=== PATIENT | male | born 1980 | race Caucasian/White ===

== ENCOUNTER → 2021-04-11 08:18 | Outpatient (CLI) | payer MEDICARE, SELFPAY ==
[2021-04-11 19:04] LABS: SARS-CoV-2 RNA PCR Negative
== END ==
PROVIDERS: PCP Internal Medicine; Visit Provider Nurse Practitioner
DX: R68.89 Other general symptoms and signs (principal); Z20.822 Contact with and (suspected) exposure to COVID-19
CPT/HCPCS: C9803; U0003; U0005

== ENCOUNTER 2021-10-03 17:20 | Outpatient (CLI) | payer MEDICARE, SELFPAY ==
--- NOTE | ~2021-10-03 | XR_ITS ---
EXAM: XR foot RT 2V DATE: 10/03/2021 17:38 HISTORY: M79.671 - Pain in right foot . COMPARISON: 01/15/2015. FINDINGS: Forefoot soft tissue swelling. Nondisplaced comminuted fracture is suspected at the proxim al right third metatarsal, with likely intra-articular extension. Degenerative changes at the first M TP and multiple midfoot joints. Plantar enthesopathy. IMPRESSION: Nondisplaced comminuted fracture of the right proximal third metatarsal, with likely intr a-articular extension. Reviewed, dictated and finalized at location K. IMPRESSION: Nondisplaced comminuted fracture of the right proximal third metata rsal, with likely intra-articular extension.
== END 2021-10-03 17:21 ==
LOC: MICIMG 17:22
PROVIDERS: PCP Internal Medicine; Visit Provider Nurse Practitioner
DX: S92.334D Nondisplaced fracture of third metatarsal bone, right foot, subsequent encounter for fracture with routine healing (principal); X58.XXXD Exposure to other specified factors, subsequent encounter
CPT/HCPCS: 73620

== ENCOUNTER 2022-09-12 10:09 | Outpatient (CLI) | payer MEDICARE, MEDICAID, SELFPAY ==
[2022-09-12 14:26] LABS: Basophils Percent Auto 0.4 % (0.2-1.2); Eosinophils Absolute Auto 0.3 K/mm3 (0-0.3); Eosinophils Percent Auto 2.9 % (0-4.4); Hematocrit 38.3 % (42.0-52.0); Hemoglobin 11.2 g/dL (14.0-18.0); Immature Granulocyte Absolute 0.05 K/mm3 (0.00-0.031); Immature Granulocyte Percent A 0.6 % (0-0.5); Lymphocytes Absolute Auto 2.52 K/mm3 (0.9-3.2); Lymphocytes Percent Auto 28.2 % (18.3-44.2); Mean Corpuscular HGB Conc 29.2 g/dl (32-36); Mean Corpuscular Hemoglobin 29.4 pg (26-34); Mean Corpuscular Volume 100.5 fl (80-100); Mean Platelet Volume 9.8 fl (7.4-10.4); Monocytes Absolute Auto 0.9 K/mm3 (0.1-0.6); Monocytes Percent Auto 9.5 % (2.6-8.5); Neutrophils Absolute Auto 5.2 K/mm3 (1.3-6.7); Neutrophils Percent Auto 58.4 % (45.5-73.1); Platelet Count Result 364 k/mm3 (150-375); Red Blood Count 3.81 M/mm3 (4.6-6.20); Red Cell Distribution Width 14.1 % (11.5-14.5); White Blood Count 8.9 K/mm3 (4.5-10.0)
[2022-09-12 14:30] LABS: Alanine Aminotransferase 42 U/L (6-50); Albumin Level 4.3 g/dL (3.5-5.1); Alkaline Phosphatase 86 U/L (38-126); Anion Gap 5 mmol/L (8-16); Aspartate Amino Transferase 30 U/L (17-59); Bilirubin,Total 0.3 mg/dL (0.2-1.3); Blood Urea Nitrogen 24 mg/dL (9-20); Calcium 9.3 mg/dL (8.4-10.2); Carbon Dioxide 36 mmol/L (22-30); Chloride 100 mmol/L (98-107); Estimated Glomerular Filt Rate > 60; Glucose 90 mg/dL (65-110); Potassium 4.3 mmol/L (3.4-5.0); Sodium 141 mmol/L (137-145)
[2022-09-12 15:54] LABS: Hypochromasia 1+ (NORMAL); Platelet Estimate Adequate (Adequate); Schistocytes None Seen (NORMAL)
== END 2022-09-12 10:10 | disposition home or self-care (01) ==
LOC: ANHGOSHLAB 10:10
PROVIDERS: PCP Internal Medicine; Visit Provider Internal Medicine
DX: J96.90 Respiratory failure, unspecified, unspecified whether with hypoxia or hypercapnia (principal); L89.154 Pressure ulcer of sacral region, stage 4; R63.5 Abnormal weight gain
CPT/HCPCS: 36415; 80053; 84443; 85025

== ENCOUNTER 2022-09-14 17:14 | Outpatient (CLI) | payer MEDICARE, MEDICAID, SELFPAY ==
--- NOTE | ~2022-09-14 | XR_ITS ---
EXAMINATION: XR chest 2V DATE: 09/14/2022 17:34 INDICATION: Respiratory failure TECHNIQUE: PA and lateral views of the chest were obtained. COMPARISON: None FINDINGS: Mild infrahilar bronchial wall thickening in the posterior lower lungs seen on the lateral projection . No focal airspace opacities, pleural effusion or pneumothorax. The cardiomediastinal silhouette is normal. Mild thoracic spondylosis. IMPRESSION: 1. Mild perihilar bronchial wall thickening which could be due to bronchitis, reactive airway disease /asthma or peribronchial cuffing related to minimal pulmonary edema. Reviewed, dictated and finalized at location A. IMPRESSION: 1. Mild perihilar bronchial wall thickening which could be due to bronchitis, r eactive airway disease/asthma or peribronchial cuffing related to minimal pulmo nary edema.
== END 2022-09-14 17:15 | disposition home or self-care (01) ==
PROVIDERS: PCP Internal Medicine; Visit Provider Internal Medicine
DX: J96.90 Respiratory failure, unspecified, unspecified whether with hypoxia or hypercapnia (principal)
CPT/HCPCS: 71046

== ENCOUNTER 2022-09-28 07:11 | Emergency (ER) | payer MEDICARE, MEDICAID, SELFPAY ==
[2022-09-28] VITALS (14 sets, daily range): BP systolic 131–188; BP diastolic 76–127; PULSE 120–138; RESP 18–28; TEMP 36.8–37.3; O2SAT 90–100
--- NOTE | ~2022-09-28 | XR_ITS ---
EXAMINATION: XR chest 1V portable 09/28/2022 08:06 INDICATION: Shortness of breath PROCEDURE: AP portable chest COMPARISON: 09/14/2022 FINDINGS: The lungs are clear. The cardiomediastinal silhouette is within normal limits. There are no pleural effusions. There is no pneumothorax suspected. IMPRESSION: 1: NO ACUTE CARDIOPULMONARY DISEASE. Reviewed, dictated and finalized at location L.
--- NOTE | ~2022-09-28 | CT_ITS ---
EXAMINATION: CT chest abdomen pelvis w con DATE: 09/28/2022 09:20 INDICATION: Shortness of breath, tracheal stenosis TECHNIQUE: Transaxial computed tomographic images of the chest, abdomen, and pelvis were obtained aft er the administration of 100 cc of Omnipaque 350 intravenous contrast. The dose-length product (DLP) was 1964.26 mGy-cm. Automated exposure control and iterative reconstruction technique were employed. COMPARISON: None FINDINGS: CHEST CT: There is mild dependent atelectasis. No pleural effusion or pneumothorax. No pathologically enlarged thoracic lymph nodes are identified. The heart size is normal. There is stenosis of the intrathoracic trachea as noted in the clinical history. There is aspirated material in the proximal aspect of the left lower lobe bronchus. Calcified coronary artery atherosclerosis is noted. There is moderate bilat eral gynecomastia. ABDOMEN/PELVIS CT: The liver, spleen, pancreas, gallbladder, and adrenal glands are normal. The right kidney is unremark able. There is an 11 mm cyst of the left kidney. There is mild pelvic lymphadenopathy, likely reactiv e. No free intraperitoneal gas or evidence of bowel obstruction. The appendix is normal. There is a s acral decubitus ulcer. There is mild fragmentation of the coccyx which could reflect osteomyelitis. IMPRESSION: 1. Tracheal stenosis. 2. Sacral decubitus ulcer with mild fragmentation of the coccyx, possibly reflecting osteomyelitis. 3. Aspirated material in the proximal aspect of the left lower lobe bronchus. Reviewed, dictated and finalized at location A. IMPRESSION: 1. Tracheal stenosis. 2. Sacral decubitus ulcer with mild fragmentation of the coccyx, possibly refle cting osteomyelitis. 3. Aspirated material in the proximal aspect of the left lower lobe bronchus.
--- NOTE | 2022-09-28 07:14 | ECG_ITS ---
Measurements Intervals [place] Rate: 135 P: 71 MS: 147 QRS: 67 QRSD: 86 T: 66 QT: 359 QTc: 539 Interpretive Statements SINUS TACHYCARDIA ABNORMAL RHYTHM ECG NO PREVIOUS ECG AVAILABLE FOR COMPARISON Electronically Signed On 09-28-2022 13:52:42 CDT by Evangelina Cantrell M.D.
[2022-09-28 07:42] LABS: Basophils Percent Auto 0.3 % (0.2-1.2); Eosinophils Percent Auto 0.2 % (0-4.4); Hematocrit 45.9 % (42.0-52.0); Immature Granulocyte Absolute 0.24 K/mm3 (0.00-0.031); Immature Granulocyte Percent A 1.8 % (0-0.5); Lymphocytes Absolute Auto 1.71 K/mm3 (0.9-3.2); Lymphocytes Percent Auto 12.6 % (18.3-44.2); Mean Corpuscular HGB Conc 30.5 g/dl (32-36); Mean Corpuscular Hemoglobin 29.9 pg (26-34); Mean Corpuscular Volume 97.9 fl (80-100); Mean Platelet Volume 9.9 fl (7.4-10.4); Monocytes Absolute Auto 0.8 K/mm3 (0.1-0.6); Monocytes Percent Auto 6.2 % (2.6-8.5); Neutrophils Absolute Auto 10.7 K/mm3 (1.3-6.7); Neutrophils Percent Auto 78.9 % (45.5-73.1); Platelet Count Result 309 k/mm3 (150-375); Red Blood Count 4.69 M/mm3 (4.6-6.20); Red Cell Distribution Width 13.5 % (11.5-14.5); White Blood Count 13.6 K/mm3 (4.5-10.0)
[2022-09-28] MEDS: ALBUTEROL SULFATE NEB 2.5 MG/3 ML INH 10 MG INHALATION (07:46)
[2022-09-28] MEDS: NITROGLYCERIN OINTMENT 1 INCH DOSE TRANSDERM (07:47)
[2022-09-28 07:57] LABS: Alanine Aminotransferase 40 U/L (6-50); Albumin Level 4.7 g/dL (3.5-5.1); Alkaline Phosphatase 91 U/L (38-126); Anion Gap 10 mmol/L (8-16); Aspartate Amino Transferase 31 U/L (17-59); Bilirubin,Total 0.3 mg/dL (0.2-1.3); Blood Urea Nitrogen 12 mg/dL (9-20); Calcium 9.6 mg/dL (8.4-10.2); Carbon Dioxide 34 mmol/L (22-30); Chloride 100 mmol/L (98-107); Estimated CRCL calculation 189 ml/min; Estimated Glomerular Filt Rate > 60; Glucose 141 mg/dL (65-110); Potassium 4.1 mmol/L (3.4-5.0); Sodium 144 mmol/L (137-145)
[2022-09-28 08:03] LABS: Alveolar/Arterial O2 Gradient 119.3 mmHg; Base Excess ABG 4.4 mEq/l (+/-2.0); Carboxyhemoglobin 1.1 % THb (0-2.0); Fractional Inspired Oxygen 36 %; Methemoglobin ABG 0.2 %THb (0-1.5); Oxygen Content ABG 18.6 %vol (16.0-22.0); Oxygen Saturation ABG 94.4 % (95.0-100.0); Oxyhemoglobin 92.8 % THb (90.0-100.0); PCO2 ABG 54.4 mmHg (35.0-45.0); PO2 ABG 74.3 mmHg (80.0-100.0); PO2 FiO2 Ratio Arterial Blood 2.06 %; Reduced Hemoglobin 5.9 %THb (0-5.0); Total Hemoglobin 14.2 g/dL (12.0-18.0); pH ABG 7.374 (7.350-7.450)
[2022-09-28 08:06] LABS: Device NASAL CANNULA; Modified Allen's Test Pass; Site Drawn RIGHT RADIAL
[2022-09-28] MEDS: SODIUM CHLORIDE 0.9% IV 1,000 ML 999 ML IV CONT ×2 (08:33→10:30)
[2022-09-28 08:34] LABS: Prothrombin Time 13.2 Seconds (11.1-14.7)
[2022-09-28 08:35] LABS: Partial Thromboplastin Time 27.2 SECONDS (22.3-36.8)
[2022-09-28 08:39] LABS: Magnesium 1.9 mg/dL (1.6-2.3)
[2022-09-28 08:48] LABS: NT Pro B Type Natriuretic Pept 1160 pg/mL (19.9-100)
--- NOTE | 2022-09-28 08:49 | ED.SOB ---
HPI - SOB/Dyspnea General Chief Complaint: Shortness of Breath/Dyspnea Stated Complaint: SOB/Dyspnea Source: patient, EMS and RN notes reviewed Mode of arrival: EMS Limitations: no limitations History of Present Illness HPI Narrative: This is a 41 year old male with history of tracheal stenosis who presents for evaluation of shortness of breath. He states he has felt short of breath and unwell since yesterday. THis rmorning he woke up feeling more short of breath and EMS was called. EMS reports patient's oxygen saturation was in in low 80s so he was given albuterol neb treatment and placed on oxygen. He denies chest pain. He reports cough with clear phlegm. He denies nausea, vomiting, fever or chills. He was just prescribed albuterol yesterday. He states he is scheduled to have procedure to treat his tracheal stenosis at [facility] at the end of the month. He states that he has chronic pressure ulcers on his sacrum and lower extremities due to not being turned while in hospital. He states he woke up from a coma in July 2022 after prolonged period of intubation and he suffered tracheal stenosis from this as well. Related Data Allergies Allergy/AdvReac Type Severity Reaction Status Date / Time codeine Allergy Unknown Unknown Verified 09/15/22 15:16 Review of Systems Constitutional: Constitutional: Denies weakness Cardiovascular: Cardiovascular: Denies syncope, Denies rapid heart rate, Denies irregular heart rhythm, Reports leg edema and Reports dyspnea Respiratory: Respiratory: Reports chest congestion, Denies hemoptysis, Denies excessive phlegm production, Reports dyspnea and Reports wheezing Gastrointestinal: Gastrointestinal: Denies abdominal pain, Denies hematochezia, Denies diarrhea and Denies vomiting Genitourinary: Genitourinary: Denies hematuria, Denies dysuria, Denies penile discharge and Denies testicular pain Musculoskeletal: Musculoskeletal: Denies joint swelling, Denies loss of height and Denies muscle weakness Integumentary/Breasts: Skin/Breast: Reports skin ulcer Neurologic: Denies syncope, Denies focal weakness and Denies weakness [facility] Past Medical History Medical History Legally blind Metatarsal bone fracture Right foot pain Sacral decubitus ulcer, stage IV Weight gain Family History Family History Unknown Heart disease Kidney disease Lung disease Mother Urethra cancer Social History Social History Smoking packs per day: 1 Smoking cigarettes per day: 20.0 Years smoked: 20 Smoking pack-years: 20.00 Smoking status: Former smoker Alcohol intake: former Drinks per week: 5 Substance use: former Substance use type: marijuana Lack of Transportation: No Lack of Food: Never True Current Housing: I Have Housing Concerned About Future Housing: No Difficulty Paying Gas/Electric Bills: No Difficulty Paying for Meds: No Currently Unemployed: No Education: High School Diploma/GED Difficulty w/ Childcare or Family Care: No Living arrangements: with family Occupation/Education: other Additional occupation/education comments: disabled Gender identity (if verbalized by the patient): Male Exam Const: General: alert Nutritional Appearance: obese Orientation/consciousness: patient oriented x3 HENMT: Face and sinus: normal facial exam Eyes: Conjunctivae: conjunctivae normal Other: nystagmus since Neck: Neck: normal visual inspection Chest: Chest palpation & inspection: normal inspection of the chest Resp: Effort & Inspection: labored and tachypneic Auscultation: wheezes expiratory wheezes, inspiratory wheezes and throughout Other: stridor , able to speak in complete sentence Cardio: Rate: tachycardic Rhythm: regular rhythm Heart sounds: no murmurs GI: GI Palp: Yes Soft to
[2022-09-28 08:50] LABS: Troponin I < 0.012 ng/mL (0.000-0.034)
[2022-09-28] MEDS: methylPREDNISolone SOD SUCC 125 MG VIAL IV PUSH (10:30)
[2022-09-28] MEDS: PIPERACILLN/TAZ 3.375GM/NS50ML 3.375 GM/50 ML BAG IVPB (10:31)
== END 2022-09-28 12:17 | disposition short-term general hospital (02) ==
LOC: ANHED 07:38
PROVIDERS: Emergency Provider General Practice; PCP Internal Medicine
DX: J95.03 Malfunction of tracheostomy stoma (principal); L89.154 Pressure ulcer of sacral region, stage 4; L89.899 Pressure ulcer of other site, unspecified stage; Z87.891 Personal history of nicotine dependence; Z79.01 Long term (current) use of anticoagulants
CPT/HCPCS: 36415; 36600; 71045; 71260; 74177; 80053; 82375; 82805; 83050; 83605; 83735; 83880; 84484; 85025; 85610; 85730; 87040; 93005; 94640; 96361; 96365; 96375; 99285; A9270; J2543; J2930; J7030; Q9967

== ENCOUNTER 2022-10-26 10:07 | Outpatient (CLI) | payer MEDICARE, MEDICAID, SELFPAY ==
[2022-10-26 14:33] LABS: Basophils Percent Auto 0.3 % (0.2-1.2); Eosinophils Absolute Auto 0.2 K/mm3 (0-0.3); Eosinophils Percent Auto 1.6 % (0-4.4); Hemoglobin 11.9 g/dL (14.0-18.0); Immature Granulocyte Absolute 0.02 K/mm3 (0.00-0.031); Immature Granulocyte Percent A 0.2 % (0-0.5); Lymphocytes Absolute Auto 1.72 K/mm3 (0.9-3.2); Lymphocytes Percent Auto 18.2 % (18.3-44.2); Mean Corpuscular Hemoglobin 28.1 pg (26-34); Mean Corpuscular Volume 96.9 fl (80-100); Mean Platelet Volume 10.6 fl (7.4-10.4); Monocytes Absolute Auto 0.8 K/mm3 (0.1-0.6); Monocytes Percent Auto 8.7 % (2.6-8.5); Neutrophils Absolute Auto 6.7 K/mm3 (1.3-6.7); Platelet Count Result 297 k/mm3 (150-375); Red Blood Count 4.23 M/mm3 (4.6-6.20); White Blood Count 9.5 K/mm3 (4.5-10.0)
[2022-10-26 15:13] LABS: Alanine Aminotransferase 31 U/L (6-50); Albumin Level 4.4 g/dL (3.5-5.1); Alkaline Phosphatase 81 U/L (38-126); Aspartate Amino Transferase 25 U/L (17-59); Bilirubin,Total 0.3 mg/dL (0.2-1.3); Blood Urea Nitrogen 18 mg/dL (9-20); Calcium 9.8 mg/dL (8.4-10.2); Carbon Dioxide > 40 mmol/L (22-30); Chloride 98 mmol/L (98-107); Estimated Glomerular Filt Rate > 60; Glucose 127 mg/dL (65-110); Potassium 4.2 mmol/L (3.4-5.0); Sodium 141 mmol/L (137-145)
== END 2022-10-26 10:08 | disposition home or self-care (01) ==
LOC: ANHGOSHLAB 10:08
PROVIDERS: PCP Internal Medicine; Visit Provider Internal Medicine
DX: J96.90 Respiratory failure, unspecified, unspecified whether with hypoxia or hypercapnia (principal); L89.153 Pressure ulcer of sacral region, stage 3; L89.893 Pressure ulcer of other site, stage 3; Z79.899 Other long term (current) drug therapy; M79.671 Pain in right foot
CPT/HCPCS: 36415; 80053; 85025; 86140

== ENCOUNTER 2023-03-17 05:33 | Inpatient (IN) | payer OTHER, SELFPAY ==
[2023-03-17] VITALS (35 sets, daily range): BP systolic 99–144; BP diastolic 47–90; PULSE 72–99; RESP 8–26; TEMP 36.2–37.9; O2SAT 98–100; BMI 42.3
--- NOTE | ~2023-03-17 | XR_ITS ---
XR chest 1V portable 03/19/2023 14:30 Indication: Shortness of breath Procedure: AP portable chest Comparison: Comparison to multiple prior studies sequentially, with oldest reviewed study dated 04/2022. Findings: Status post median sternotomy for CABG. Cardiomegaly. Mild interstitial edema. Tracheostomy tube present. No significant effusion. No pneumothorax. Impression: 1: Cardiomegaly with mild interstitial edema. Reviewed, dictated and finalized at location B. TENDER Impression: 1: Cardiomegaly with mild interstitial edema.
--- NOTE | ~2023-03-17 | XR_ITS ---
EXAMINATION: XR chest 1V portable DATE: 03/18/2023 06:26 INDICATION: Pneumonia TECHNIQUE: frontal view of the chest was obtained. COMPARISON: Chest radiograph dated 03/17/2023 FINDINGS: Tracheostomy tube at the thoracic inlet. There is mild narrowing of the more caudal to mid trachea. T here are mild infrahilar opacities in the bilateral lower lungs which could represent atelectasis or pneumonia. Small left pleural effusion. No pulmonary edema, pneumothorax or right-sided pleural effus ion. Heart size is normal. Median sternotomy wires and mediastinal surgical clips are seen, likely fr om prior coronary artery bypass grafting. IMPRESSION: 1. Mild bilateral infrahilar opacities which could represent atelectasis or pneumonia. 2. Small left pleural effusion. 3. No significant tracheal distal to a tracheostomy tube. Reviewed, dictated and finalized at location A. TUB TENDER IMPRESSION: 1. Mild bilateral infrahilar opacities which could represent atelectasis or pne umonia. 2. Small left pleural effusion. 3. No significant tracheal distal to a tracheostomy tube.
--- NOTE | ~2023-03-17 | XR_ITS ---
EXAMINATION: XR chest 1V portable DATE: 03/17/2023 06:22 INDICATION: Dyspnea TECHNIQUE: frontal view of the chest was obtained. COMPARISON: Chest radiograph and CT dated 09/28/2022 FINDINGS: Tracheostomy tube at the thoracic inlet. There appears stenosis of the mid trachea distal to the tip the tracheostomy tube. Opacities at the medial left lung base which could represent atelectasis or pn eumonia. No pulmonary edema, pleural effusion or pneumothorax. The cardiomediastinal silhouette is wi thin normal limits for AP technique. Median sternotomy wires and mediastinal surgical clips are seen, likely from prior coronary artery bypass grafting. IMPRESSION: 1. Stenosis of the mid trachea distal to a tracheostomy tube. 2. Opacities at the medial left lung base which could represent atelectasis or pneumonia. Reviewed, dictated and finalized at location A. ERER AND WIRER
--- NOTE | 2023-03-17 05:48 | PC.NURSE ---
Pt brought into ED by EMS using BVM. Upon trial by RT, pt was 100% on room air with trach in place. After 3 minutes pt oxygen saturation dropped to 87% and rt began to use bvm again and pt oxygen saturation went to 100%.
--- NOTE | 2023-03-17 05:51 | PC.NURSE ---
Mother of family states that pt has a hx of problems with mucous plugs. Prior to arrival EMS states that they were intermittently suctioning pt before arrival to ED. Pt is able to answers questions and with nods/ shakes his head/ mouths answers. Pt nodded head yes when this RN asked if he normally uses a speaking valve.
--- NOTE | 2023-03-17 05:55 | ECG_ITS ---
Measurements Intervals [place] Rate: 84 P: 47 ID: 179 QRS: 9 QRSD: 92 T: 36 QT: 360 QTc: 427 Interpretive Statements SINUS RHYTHM BASELINE ARTIFACT NORMAL ECG COMPARED TO ECG 09/28/2022 07:21:51 SINUS RHYTHM NOW PRESENT Electronically Signed On 03-17-2023 14:04:52 TRUCK SERVICE MANAGER by Austyn Osei M.D.
[2023-03-17 06:05] LABS: Basophils Percent Auto 0.4 % (0.2-1.2); Eosinophils Absolute Auto 0.1 K/mm3 (0-0.3); Eosinophils Percent Auto 0.9 % (0-4.4); Hematocrit 35.4 % (42.0-52.0); Hemoglobin 10.3 g/dL (14.0-18.0); Immature Granulocyte Absolute 0.03 K/mm3 (0.00-0.031); Immature Granulocyte Percent A 0.4 % (0-0.5); Lymphocytes Absolute Auto 1.39 K/mm3 (0.9-3.2); Lymphocytes Percent Auto 19.9 % (18.3-44.2); Mean Corpuscular HGB Conc 29.1 g/dl (32-36); Mean Corpuscular Hemoglobin 29.9 pg (26-34); Mean Corpuscular Volume 102.6 fl (80-100); Mean Platelet Volume 10.4 fl (7.4-10.4); Monocytes Absolute Auto 0.5 K/mm3 (0.1-0.6); Monocytes Percent Auto 7.1 % (2.6-8.5); Neutrophils Percent Auto 71.3 % (45.5-73.1); Platelet Count Result 145 k/mm3 (150-375); Red Blood Count 3.45 M/mm3 (4.6-6.20)
--- NOTE | 2023-03-17 06:08 | ED.GENADULT ---
HPI - General Adult General Chief complaint: Shortness of Breath/Dyspnea Stated complaint: ams, hypoxia Time Seen by Provider: 03/17/23 05:49 History of Present Illness HPI narrative: Patient 42-year-old gentleman presents emerged from with chief complaint of shortness of breath patient has history of a tracheostomy and was recently at a long-term that facility and was discharged home patient has a tracheostomy and EMS was called the patient was hypoxic turning blue and gasping for breath. EMS assisted ventilations with bag-valve mask the patient has had issues with mucus plugging before in the past patient denies fever Related Data Allergies Allergy/AdvReac Type Severity Reaction Status Date / Time codeine Allergy Unknown Unknown Verified 03/17/23 05:53 Review of Systems Review of Systems: A 10 system review of systems was completed on the patient and is negative except for what is stated in the HPI. Nursing and ancillary documentation was reviewed. [facility] Past Medical History Medical History Decubitus ulcer of right leg, stage 3 Legally blind Metatarsal bone fracture Right foot pain Sacral decubitus ulcer, stage III Sacral decubitus ulcer, stage IV Weight gain Family History Family History Unknown Heart disease Kidney disease Lung disease Mother Urethra cancer Social History Social History Smoking packs per day: 1 Smoking cigarettes per day: 20.0 Years smoked: 20 Smoking pack-years: 20.00 Smoking status: Former smoker Alcohol intake: former Drinks per week: 5 Substance use: former Substance use type: marijuana Lack of Transportation: No Lack of Food: Never True Current Housing: I Have Housing Concerned About Future Housing: No Difficulty Paying Gas/Electric Bills: No Difficulty Paying for Meds: No Currently Unemployed: No Education: High School Diploma/GED Difficulty w/ Childcare or Family Care: No Living arrangements: with family Occupation/Education: other Additional occupation/education comments: disabled Gender identity (if verbalized by the patient): Male Exam Narrative: GENERAL: Well-appearing, well-nourished, and in no acute distress. HEAD: Normocephalic, atraumatic. EYES: PERRLA and EOMI. ENT: Nares clear, no rhinorrhea or epistaxis. Mucous membranes moist. NECK: Supple. Tracheostomy in place bag valve mask attached to his tracheostomy CHEST: Clear to auscultation. No respiratory distress. HEART: Regular rate and rhythm. No murmur heard. Normal peripheral pulses. ABDOMEN: Soft, nontender, nondistended, normal active bowel sounds. EXTREMITIES: Normal range of motion. No edema. SKIN: Warm, dry, no rash. NEURO: No focal deficits. Alert and oriented x3. PSYCH: Normal mood and affect. Course Vital Signs Vital signs: Vital Signs Temperature 36.2 C L 03/17/23 05:34 Pulse Rate 84 03/17/23 05:34 Blood Pressure 123/76 03/17/23 05:34 Pulse Oximetry 100 03/17/23 05:34 Oxygen Delivery Trach Collar 03/17/23 05:34 Temperature 36.2 C L 03/17/23 05:34 Pulse Rate 76 03/17/23 07:19 Respiratory Rate 12 03/17/23 07:19 Blood Pressure 100/65 03/17/23 07:19 Pulse Oximetry 100 03/17/23 07:19 Oxygen Delivery Trach Collar 03/17/23 06:57 Oxygen Flow Rate 40 03/17/23 06:23 Fraction of Inspired Oxygen 50 03/17/23 06:30 Medical Decision Making Vital Signs Vital Signs: Vital Signs Temperature 36.2 C L 03/17/23 05:34 Pulse Rate 84 03/17/23 05:34 Blood Pressure 123/76 03/17/23 05:34 Pulse Oximetry 100 03/17/23 05:34 Oxygen Delivery Trach Collar 03/17/23 05:34 Temperature 36.2 C L 03/17/23 05:34 Pulse Rate 76 03/17/23 07:19 Respiratory Rate 12 03/17/23 07:19 Blood Pressure 100/65 03/17
[2023-03-17 06:17] LABS: INR 0.9; Prothrombin Time 12.9 Seconds (11.1-14.7)
[2023-03-17] MEDS: IPRATROPIUM BR 0.02% INH SOLN 0.5 MG/2.5 ML VIAL INHALATION ×4 (06:19→20:11)
[2023-03-17] MEDS: ALBUTEROL SULFATE NEB 2.5 MG/3 ML INH INHALATION ×4 (06:19→20:11)
[2023-03-17 06:20] LABS: Alveolar/Arterial O2 Gradient 142.7 mmHg; Base Excess ABG 11.3 mEq/l (+/-2.0); Fractional Inspired Oxygen 50 %; HCO3 ABG 41.9 mEq/l (22.0-26.0); Oxygen Content ABG 14.7 %vol (16.0-22.0); Oxygen Saturation ABG 95.9 % (95.0-100.0); Oxyhemoglobin 95.7 % THb (90.0-100.0); PO2 ABG 100.2 mmHg (80.0-100.0); Total Hemoglobin 10.8 g/dL (12.0-18.0)
[2023-03-17 06:21] LABS: Alanine Aminotransferase 42 U/L (6-50); Albumin Level 4.2 g/dL (3.5-5.1); Alkaline Phosphatase 68 U/L (38-126); Aspartate Amino Transferase 44 U/L (17-59); Bilirubin,Total 0.4 mg/dL (0.2-1.3); Blood Urea Nitrogen 22 mg/dL (9-20); Calcium 9.1 mg/dL (8.4-10.2); Carbon Dioxide > 40 mmol/L (22-30); Chloride 93 mmol/L (98-107); Estimated CRCL calculation 195 ml/min; Estimated Glomerular Filt Rate > 60; Glucose 248 mg/dL (65-110); Lipase 75 U/L (23-300); Potassium 3.8 mmol/L (3.4-5.0); Sodium 145 mmol/L (137-145)
[2023-03-17 06:22] LABS: Device HIGH FLOW THERAPY; Modified Allen's Test Pass; Site Drawn RIGHT RADIAL; pH ABG 7.236 (7.350-7.450)
[2023-03-17 06:31] LABS: NT Pro B Type Natriuretic Pept 320 pg/mL (19.9-100); Troponin I 0.013 ng/mL (0.000-0.034)
[2023-03-17 06:54] LABS: Lactic Acid Reflex 2.8 mmol/L (0.7-2.0)
[2023-03-17 06:57] LABS: Anisocytosis 1+ (NORMAL); Hypochromasia 1+ (NORMAL); Schistocytes None Seen (NORMAL)
[2023-03-17 07:16] LABS: Influenza A QL RT-PCR Negative (Negative); Influenza B QL RT-PCR Negative (Negative); RSV RNA, RT-PCR Negative (Negative); SARS-CoV-2 RNA PCR Negative (Negative)
[2023-03-17] MEDS: SODIUM CHLORIDE 0.9% IV 1,000 ML 999 ML IV CONT (07:45)
[2023-03-17] MEDS: cefTRIAXone 2 GM/NS 100 ML 2 GM/100 ML BAG IVPB (07:46)
[2023-03-17 09:23] LABS: MRSA (PCR) DETECTED (NOT DETECTE)
[2023-03-17 09:38] LABS: Reflex Lactic Acid Yes or No Add Lactic
--- NOTE | 2023-03-17 09:41 | ADMGEN ---
This patient, Laith Chavez, was admitted to Intensive Care Unit-10. Patient/family oriented to hospital policies and general routines including ID bracelet, bed and alarms, visiting hours, pain management, procedures, bathroom and other care routines, personal items, smoking policy, room service/diet, and visiting hours. Information on how to activate the Rapid Response Team has been discussed. Patient/Family are encouraged to report perceived risks to care and to ask questions if they do not understand what they are told or what they should do.
[2023-03-17 09:49] LABS: Troponin I 0.022 ng/mL (0.000-0.034)
[2023-03-17 10:23] LABS: Lactic Acid 1.1 mmol/L (0.7-2.0)
[2023-03-17 10:33] LABS: Alveolar/Arterial O2 Gradient 163.8 mmHg; Base Excess ABG 17.9 mEq/l (+/-2.0); Fractional Inspired Oxygen 50 %; HCO3 ABG 45.7 mEq/l (22.0-26.0); Oxygen Content ABG 14.3 %vol (16.0-22.0); Oxygen Saturation ABG 97.7 % (95.0-100.0); Oxyhemoglobin 96.5 % THb (90.0-100.0); PO2 ABG 108.1 mmHg (80.0-100.0); PO2 FiO2 Ratio Arterial Blood 2.16 %; Total Hemoglobin 10.4 g/dL (12.0-18.0); pH ABG 7.402 (7.350-7.450)
[2023-03-17 10:35] LABS: Arterial Blood Gas PEEP 5 cmH2O; Arterial Blood Gas Vent Mode ASV; Device VENTILATOR; Modified Allen's Test Pass; PCO2 ABG 75.2 mmHg (35.0-45.0); Site Drawn LEFT RADIAL
[2023-03-17] MEDS: SODIUM CHLORIDE 0.9% IV 1,000 ML 125 ML IV CONT ×2 (11:15→20:44)
[2023-03-17] MEDS: AZITHROMYCIN 500 MG/NS 250 ML 500 MG/250 ML BAG 250 MG IVPB (11:16)
[2023-03-17] MEDS: VANCOMYCIN 1,250 MG/NS 250 ML 1,250 MG/250 ML BAG 166.67 MG IVPB ×2 (11:24→12:58)
[2023-03-17 11:39] LABS: Appearance Urine Cloudy (Clear); Bacteria Urine None Seen /hpf; Bilirubin Urine Negative (Negative); Blood Urine Negative (Negative); Color Urine Dark Yellow (Yellow); Glucose Urine UA Trace mg/dL (Negative); Ketones Urine Trace mg/dL (Negative); Leukocyte Esterase Ur Negative LEU/UL (Negative); Need Manual Microscopic Reviewed; Nitrate Urine Negative (Negative); Protein Urine 3+ mg/dL (Negative); RBC Urine 0-2 /hpf (0-2); Specific Grav Ur 1.022 (1.001-1.035); Squamous Epithelial Cell Urine Few /hpf (Few); pH Urine 6.5 (5.0-9.0)
[2023-03-17] MEDS: DORNASE ALFA INH SOLN 1 MG/ML 2.5 ML AMP 2.5 MG INHALATION ×2 (11:43→20:31)
--- NOTE | 2023-03-17 11:47 | WPDCNINT ---
Assessment and Plan Assessment and plan (1) Acute hypercapnic respiratory failure: Code(s): J96.02 - Acute respiratory failure with hypercapnia Status: Acute Assessment and Plan: Patient presented from home with hypercapnic respiratory failure, dyspnea, was gasping for and had turned blue according the family with the called EMS. Upon arrival of the EMS his started bag mask ventilating him with improvement in his oxygenation and color -patient stated he does not have humidity with his oxygen which he normally uses -he was recently discharged from long-term acute care facility -currently on ASV mode of ventilation, he does have a non cuffed trach but does not want to change it for a cuffed trach. A repeat ABGs showed improvement in his pCO2, will continue the non cuffed tracheostomy at this time. Patient is getting his tidal volumes on ASV and minute ventilation. Patient's mental status is normal -will recheck ABGs later this evening, if they worsen or his mentation is worse will place him on a cuffed trach -will start bronchodilators, Pulmozyme and Mucomyst nebs were added -continue azithromycin, ceftriaxone vancomycin for possible opacities in the left lung base (2) Stenosis of trachea: Code(s): J39.8 - Other specified diseases of upper respiratory tract Status: Acute Assessment and Plan: History of tracheal stenosis status post procedures at [facility] in September or October of 2022 per patient Plan DVT prophylaxis: Lovenox Stress ulcer prophylaxis: Protonix Nutrition: NPO for now, since patient is on the ventilator and has a tracheostomy Code Status: Full code Critical Care Time Spent: 47 minutes Due to a high probability of clinically significant, life threatening deterioration, the patient required my highest level of preparedness to intervene emergently and I personally spent this critical care time directly and personally managing the patient. This critical care time included obtaining a history; examining the patient; pulse oximetry; ordering and review of studies; arranging urgent treatment with development of a management plan; evaluation of patient's response to treatment; frequent reassessment; and discussions with other providers. It was exclusive of separately billable procedures and treating other patients and teaching time. Please see Assessment and Plan section and the rest of the note for further information on patient assessment and treatment This dictation may have been done utilizing a voice recognition system. Attempts have been made to correct errors. However, there may be uncorrected grammatical, spelling, and recognitions errors present. Manager Coding Consult Note Consult date: 03/17/23 Reason for consult: Dyspnea, hypercapnic respiratory failure, chronic tracheostomy HPI: Laith Chavez is a 42 year old male with past medical history of tracheal stenosis status post tracheostomy, legally blind, decubitus ulcer presented the ED on 03/17/2023 with complains of hypoxia and turning blue and gasping for breaths at home. Patient was recently at the long-term facility and was discharged home, patient has a chronic tracheostomy for approximately 5-6 months. EMS assisted with bag-mask ventilation and improved his oxygenation. Patient has had a history of mucus plugging in the past. In the ER patient was awake, alert. Patient was placed on the ventilator and transferred to the ICU for further management. Initial ABG showed a pH of 7.23, pCO2 of 101 and PO2 of 100 on 40 L and 50% FiO2 high-flow therapy. Patient seen and examined upon arrival to the ICU, is awake, alert, able to answer questions and follows simple commands. Patient states that he has not been on the humidified air at home. He does walk around at home. Patient denies any chest pain, shortness of breath at this time, abdominal pain, nausea vomiting. In the ER patient had borderline pressures, lactic acid was 2.8. Pa
[2023-03-17 11:51] LABS: Add Urine Microscopic? YES
--- NOTE | 2023-03-17 13:43 | PM.IMHP ---
H&P: HPI History of Present Illness Date/Time: 03/17/23 13:43 Chief Complaint: Shortness of breath Narrative: 42-year-old male presented from home with complaint of shortness of breath. He was recently discharged from middle or [facility] school [facility] care facility and has the tracheostomy. When EMS arrived he was hypoxic and was turning blue and gasping for breath. EMS needed to do bag valve ventilation. He denies any fever he has since arrival to the ED been placed on a ventilator admitted to the ICU for further treatment. WBC count normal 7 anemia mild at 10.3 renal function is normal. ABG with respiratory acidosis 7.2 C/101/100/41. COVID RSV flu was negative. Procalcitonin was 0 BNP 320. Troponin negative. Lactic acid was as 2.8. His hypoxia has improved since admission. Review of Systems Review of Systems: - CONSTITUTIONAL: Denies weight loss, fever and chills. - HEENT: Denies changes in vision and hearing - RESPIRATORY: See HPI - CV: Denies palpitations and CP. - GI: Denies abdominal pain, nausea, vomiting and diarrhea. - : Denies dysuria and urinary frequency. - MSK: Denies myalgia and joint pain. - SKIN: Denies rash and pruritus. - NEUROLOGICAL: Denies headache and syncope. - PSYCHIATRIC: Denies recent changes in mood. Denies anxiety and depression. [facility] Past Medical History Medical History (Updated 03/17/23 @ 11:58 by Chino Young MD) Decubitus ulcer of right leg, stage 3 Legally blind Metatarsal bone fracture Right foot pain Sacral decubitus ulcer, stage III Sacral decubitus ulcer, stage IV Stenosis of trachea Weight gain Family History Family History Unknown Heart disease Kidney disease Lung disease Mother Urethra cancer Social History Social History Smoking packs per day: 1 Smoking cigarettes per day: 20.0 Years smoked: 20 Smoking pack-years: 20.00 Smoking status: Never smoker Alcohol intake: never Drinks per week: 5 Substance use: never Substance use type: does not use Lack of Transportation: No Lack of Food: Never True Current Housing: I Have Housing Concerned About Future Housing: No Difficulty Paying Gas/Electric Bills: No Difficulty Paying for Meds: No Currently Unemployed: No Education: High School Diploma/GED Difficulty w/ Childcare or Family Care: No Living arrangements: with family Occupation/Education: other Additional occupation/education comments: disabled Gender identity (if verbalized by the patient): Male Spiritual care concerns: No Meds Home Medications and Allergies Home Medications Medication Instructions Recorded Confirmed Type divalproex 250 mg tablet,delayed 250 mg PO TID #270 tabs 09/18/22 03/17/23 Rx release albuterol sulfate 90 mcg/actuation 1 puff inhalation Q4H PRN 09/19/22 03/17/23 Rx aerosol inhaler shortness of breath or wheezing #18 grams apixaban 5 mg tablet (Eliquis) 5 mg PO BID #180 tabs 09/19/22 10/26/22 Rx hydrocodone 5 mg-acetaminophen 325 1 tablet PO Q4H PRN pain #50 tabs 09/21/22 10/26/22 Rx mg tablet metoprolol tartrate 50 mg tablet See Rx Instructions .Route 10/13/22 10/26/22 Rx .COMPLEX #120 tabs collagenase clostridium histo. 250 1 applic topical 3XW #30 grams 11/03/22 Rx unit/gram topical ointment (Santyl) buspirone 10 mg tablet See Rx Instructions .Route 12/15/22 03/17/23 Rx .COMPLEX #90 tabs Allergies Allergy/AdvReac Type Severity Reaction Status Date / Time codeine Allergy Unknown Unknown Verified 03/17/23 05:53 Vital Signs Vital Signs - 24 hr 03/17/23 05:34 03/17/23 05:43 03/17/23 05:46 Temperature 97.2 F L Pulse Rate 84 99 Respiratory Rate Blood Pressure 123/76 Pulse Oximetry 100 100 Oxygen Delivery Trach Collar Trach Collar Oxygen Flow Rate Fraction of Inspired Oxygen 03/17/23 05:54
[2023-03-17] MEDS: ACETYLCYSTEINE 20% INHAL SOLN 800 MG/4 ML VIAL 200 MG INHALATION ×2 (15:04→20:11)
[2023-03-17 15:17] LABS: Troponin I 0.027 ng/mL (0.000-0.034)
[2023-03-17 20:27] LABS: Alveolar/Arterial O2 Gradient 185.5 mmHg; Base Excess ABG 15.7 mEq/l (+/-2.0); Fractional Inspired Oxygen 50 %; HCO3 ABG 41.1 mEq/l (22.0-26.0); Oxygen Content ABG 14.5 %vol (16.0-22.0); Oxygen Saturation ABG 98.2 % (95.0-100.0); Oxyhemoglobin 96.9 % THb (90.0-100.0); PCO2 ABG 54.7 mmHg (35.0-45.0); PO2 ABG 109.5 mmHg (80.0-100.0); PO2 FiO2 Ratio Arterial Blood 2.19 %; Total Hemoglobin 10.5 g/dL (12.0-18.0); pH ABG 7.494 (7.350-7.450)
[2023-03-17] MEDS: MELATONIN 3 MG TABLET PO (23:21)
[2023-03-18] VITALS (26 sets, daily range): BP systolic 104–156; BP diastolic 50–88; PULSE 63–136; RESP 9–30; TEMP 36.3–37.7; O2SAT 95–100
[2023-03-18] MEDS: IPRATROPIUM BR 0.02% INH SOLN 0.5 MG/2.5 ML VIAL INHALATION ×4 (01:58→21:10)
[2023-03-18] MEDS: ALBUTEROL SULFATE NEB 2.5 MG/3 ML INH INHALATION ×4 (01:58→21:10)
[2023-03-18] MEDS: ACETYLCYSTEINE 20% INHAL SOLN 800 MG/4 ML VIAL 200 MG INHALATION ×4 (01:58→21:10)
[2023-03-18 04:09] LABS: Basophils Percent Auto 0.2 % (0.2-1.2); Eosinophils Absolute Auto 0.1 K/mm3 (0-0.3); Hematocrit 28.3 % (42.0-52.0); Hemoglobin 8.3 g/dL (14.0-18.0); Immature Granulocyte Absolute 0.02 K/mm3 (0.00-0.031); Immature Granulocyte Percent A 0.3 % (0-0.5); Immature Platelet Fraction Pct 4.7 % (0.9-11.2); Lymphocytes Percent Auto 6.8 % (18.3-44.2); Mean Corpuscular HGB Conc 29.3 g/dl (32-36); Mean Corpuscular Hemoglobin 29.4 pg (26-34); Mean Corpuscular Volume 100.4 fl (80-100); Mean Platelet Volume 10.3 fl (7.4-10.4); Monocytes Absolute Auto 0.4 K/mm3 (0.1-0.6); Neutrophils Absolute Auto 4.9 K/mm3 (1.3-6.7); Neutrophils Percent Auto 83.7 % (45.5-73.1); Platelet Count Result 123 k/mm3 (150-375); Red Blood Count 2.82 M/mm3 (4.6-6.20); Red Cell Distribution Width 13.7 % (11.5-14.5); White Blood Count 5.9 K/mm3 (4.5-10.0)
[2023-03-18 04:25] LABS: Lactic Acid Reflex 0.9 mmol/L (0.7-2.0)
[2023-03-18 04:41] LABS: Alanine Aminotransferase 27 U/L (6-50); Albumin Level 3.3 g/dL (3.5-5.1); Alkaline Phosphatase 61 U/L (38-126); Aspartate Amino Transferase 18 U/L (17-59); Bilirubin,Total 0.7 mg/dL (0.2-1.3); Blood Urea Nitrogen 20 mg/dL (9-20); Calcium 8.7 mg/dL (8.4-10.2); Carbon Dioxide > 40 mmol/L (22-30); Chloride 99 mmol/L (98-107); Estimated CRCL calculation 217 ml/min; Estimated Glomerular Filt Rate > 60; Glucose 102 mg/dL (65-110); Magnesium 1.6 mg/dL (1.6-2.3); Phosphorus 2.9 mg/dL (2.5-4.5); Potassium 3.2 mmol/L (3.4-5.0); Sodium 143 mmol/L (137-145)
[2023-03-18 04:52] LABS: Anisocytosis 1+ (NORMAL); Hypochromasia 1+ (NORMAL); Microcytosis 1+ (NORMAL); Platelet Clumps Present; Schistocytes None Seen (NORMAL); Stomatocytes 1+ (NORMAL)
[2023-03-18 05:45] LABS: Alveolar/Arterial O2 Gradient 115.2 mmHg; Carboxyhemoglobin 0.4 % THb (0-2.0); Fractional Inspired Oxygen 40 %; HCO3 ABG 38.8 mEq/l (22.0-26.0); Methemoglobin ABG 0.4 %THb (0-1.5); Oxygen Content ABG 24.1 %vol (16.0-22.0); Oxygen Saturation ABG 97.5 % (95.0-100.0); Oxyhemoglobin 96.3 % THb (90.0-100.0); PO2 ABG 99.6 mmHg (80.0-100.0); PO2 FiO2 Ratio Arterial Blood 2.49 %; Reduced Hemoglobin 2.9 %THb (0-5.0); Total Hemoglobin 17.8 g/dL (12.0-18.0)
[2023-03-18 05:52] LABS: Device VENTILATOR; Modified Allen's Test Pass; PCO2 ABG 61.2 mmHg (35.0-45.0); Site Drawn RIGHT RADIAL
[2023-03-18 05:53] LABS: Arterial Blood Gas PEEP 5 cmH2O; Arterial Blood Gas Vent Mode ASV
[2023-03-18 05:59] LABS: Arterial Blood Gas PEEP 5 cmH2O; Arterial Blood Gas Vent Mode ASV; Device VENTILATOR; Modified Allen's Test Pass; Site Drawn RIGHT RADIAL
[2023-03-18] MEDS: SODIUM CHLORIDE 0.9% IV 1,000 ML 125 ML IV CONT (06:06)
[2023-03-18] MEDS: DORNASE ALFA INH SOLN 1 MG/ML 2.5 ML AMP 2.5 MG INHALATION ×2 (08:16→21:15)
[2023-03-18] MEDS: POTASSIUM CHLORIDE INJ 40 MEQ in SODIUM CHLORIDE 0.9% IV 500 ML 130 MEQ IVPB (08:32)
[2023-03-18] MEDS: MAGNESIUM SULF 2 GM/WATER 50ML 2 GM/50 ML BAG IVPB (08:33)
[2023-03-18] MEDS: PANTOPRAZOLE SODIUM IV 40 MG VIAL IV PUSH (08:39)
[2023-03-18] MEDS: ENOXAPARIN 40 MG/0.4 ML SYRINGE SUB-Q (08:39)
[2023-03-18] MEDS: AZITHROMYCIN 500 MG/NS 250 ML 500 MG/250 ML BAG 250 MG IVPB (08:39)
[2023-03-18] MEDS: METOPROLOL TARTRATE 50 MG TAB PO ×2 (09:51→21:02)
[2023-03-18] MEDS: busPIRone HCL 10 MG TABLET BY MOUTH ×3 (09:51→17:27)
[2023-03-18] MEDS: guaiFENesin 12 HR 600 MG TABCR PO ×2 (09:51→21:01)
[2023-03-18] MEDS: ESCITALOPRAM OXALATE 10 MG TABLET PO (09:51)
[2023-03-18] MEDS: APIXABAN 5 MG TABLET PO ×2 (09:51→21:01)
[2023-03-18] MEDS: cefTRIAXone 2 GM/NS 100 ML 2 GM/100 ML BAG IVPB (09:52)
[2023-03-18] MEDS: THERAPEUTIC MULTIVITAMINS/MINERALS TAB (*BKC) 1 TABLET PO (09:52)
[2023-03-18] MEDS: LORazepam (*CRX) 0.5 MG TABLET PO ×2 (09:56→17:28)
--- NOTE | 2023-03-18 12:03 | WPDINTPN ---
Progress Note: A&P Assessment and Plan (1) Acute hypercapnic respiratory failure: Code(s): J96.02 - Acute respiratory failure with hypercapnia Status: Acute Assessment and Plan: Patient presented from home with hypercapnic respiratory failure, dyspnea, was gasping for and had turned blue according the family with the called EMS. Upon arrival of the EMS his started bag mask ventilating him with improvement in his oxygenation and color -patient stated he does not have humidity with his oxygen which he normally uses -he was recently discharged from long-term acute care facility -currently on ASV mode of ventilation, he does have a non cuffed trach but does not want to change it for a cuffed trach. A repeat ABGs showed improvement in his pCO2, will continue the non cuffed tracheostomy at this time. Patient is getting his tidal volumes on ASV and minute ventilation. Patient's mental status is normal -ABGs this morning much improved since as admission ABGs -continue bronchodilators, Pulmozyme and Mucomyst nebs were added -continue azithromycin, ceftriaxone vancomycin for possible opacities in the left lung base -will place patient on high-flow therapy with humidity at 4 L which uses at home -will allow him to eat (2) Stenosis of trachea: Code(s): J39.8 - Other specified diseases of upper respiratory tract Status: Acute Assessment and Plan: History of tracheal stenosis status post procedures at [facility] in September or October of 2022 per patient Plan DVT prophylaxis: Lovenox Stress ulcer prophylaxis: Protonix Nutrition: Regular diet Code Status: Full code Critical Care Time Spent: 32 minutes May transfer out of the ICU Due to a high probability of clinically significant, life threatening deterioration, the patient required my highest level of preparedness to intervene emergently and I personally spent this critical care time directly and personally managing the patient. This critical care time included obtaining a history; examining the patient; pulse oximetry; ordering and review of studies; arranging urgent treatment with development of a management plan; evaluation of patient's response to treatment; frequent reassessment; and discussions with other providers. It was exclusive of separately billable procedures and treating other patients and teaching time. Please see Assessment and Plan section and the rest of the note for further information on patient assessment and treatment This dictation may have been done utilizing a voice recognition system. Attempts have been made to correct errors. However, there may be uncorrected grammatical, spelling, and recognitions errors present. Subjective Date/time seen: 03/18/23 12:03 Interval history: Reason for consult: Dyspnea, hypercapnic respiratory failure, chronic tracheostomy 03/18/2023: Patient seen and examined the ICU, is awake, alert, answers to questions, follows simple commands. ABGs look which improved this morning, good urine output. Patient is afebrile, hemodynamically stable. No complaints this morning. States he is hungry Review of Systems Review of Systems: All systems reviewed & are unremarkable except as noted in HPI and below Exam Narrative: General: Pleasant patient no acute distress HEENT:? Pupils equal and reactive, sclera is clear, Neck:? Patient has a tracheostomy Respiratory:? Coarse breath sounds at bases, otherwise clear, no wheezing Cardiac:? Regular rate and rhythm, S1-S2 is normal Abdomen:? Soft, non tender, non distended, normoactive bowel sounds Extremities:? Trace edema, palpable pedal pulse, Neuro:? Patient is awake, alert, oriented, nonfocal, answers to questions appropriately and follows simple commands in all extremities Skin:? Warm and dry, chronic venous stasis changes on lower extremity Psych:? Normal mentation and affect Objective Data Vital Signs Vital Signs: Vital Signs - 24 hr 03/17
[2023-03-18] MEDS: DIVALPROEX SODIUM DR 250 MG TABEC PO ×2 (12:09→17:36)
[2023-03-18] MEDS: lisinopriL 5 MG TABLET PO (12:09)
--- NOTE | 2023-03-18 15:39 | PC.NURSE ---
This patient, Laith Chavez, was received from [ICU-10 ] on 03/18/23 at 1315. Patient/family oriented to unit policies and routines
--- NOTE | 2023-03-18 16:23 | PM.IMPN ---
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 When EMS arrived he was hypoxic and was turning blue and gasping for breath. EMS needed to do bag valve ventilation. He denies any fever he has since arrival to the ED been placed on a ventilator admitted to the ICU for further treatment. WBC count normal 7 anemia mild at 10.3 renal function is normal. ABG with respiratory acidosis 7.2 C/101/100/41. COVID RSV flu was negative. Procalcitonin was 0 BNP 320. Troponin negative. Lactic acid was as 2.8. His hypoxia has improved since admission. Was placed on mechanical ventilation. Hypercapnia is resolved. Continue bronchodilator treatment and antibiotics. Ventilation has been discontinued and continue on oxygen supplementation as needed and taper/wean as tolerated Chest x-ray with a stenosis of the mid trachea distal to the TICU ostomy tube. Opacities in the medial left lung base which could represent atelectasis or pneumonia. Patient has been empirically started on antibiotics with azithromycin ceftriaxone vancomycin. ABG monitoring and further treatment per ICU team. DVT prophylaxis Lovenox Subjective Date/time seen: 03/18/23 16:23 Interval history: No overnight events. Feeling better. Taken off ventilator this a.m.. Transferring out of the ICU. Review of Systems Review of Systems: All systems reviewed & are unremarkable except as noted in HPI and below Exam Narrative: GENERAL: Patient with morbid obesity, not in acute distress. HEAD: Normocephalic, atraumatic. EYES: PERRLA and EOMI. ENT: Nares clear, no rhinorrhea or epistaxis.? Mucous membranes moist. NECK: Supple.? Tracheostomy with high-flow oxygen on CHEST: Coarse breath sound bilaterally no respiratory distress. HEART: Regular rate and rhythm.? No murmur heard.? Normal peripheral pulses. ABDOMEN: Soft, nontender, nondistended, normal active bowel sounds. EXTREMITIES: Normal range of motion.? No edema. SKIN: Warm, dry, no rash. NEURO: No focal deficits.? Alert and oriented x3. PSYCH: Normal mood and affect. Objective Data Vital Signs Vital Signs: Vital Signs - 24 hr 03/17/23 17:32 03/17/23 17:55 03/17/23 18:00 Temperature 98.2 F Pulse Rate 99 87 Respiratory Rate 11 L Blood Pressure 115/90 Pulse Oximetry 100 100 Oxygen Delivery Mechanical Ventilation Oxygen Flow Rate Fraction of Inspired Oxygen 50 03/17/23 18:00 03/17/23 20:05 03/17/23 20:00 Temperature Pulse Rate 87 93 83 Respiratory Rate Blood Pressure Pulse Oximetry 100 Oxygen Delivery Mechanical Ventilation Oxygen Flow Rate Fraction of Inspired Oxygen 50 03/17/23 22:00 03/17/23 20:00 03/17/23 22:00 Temperature 100.2 F H Pulse Rate 78 83 78 Respiratory Rate 9 L 10 L Blood Pressure 134/63 101/47 L Pulse Oximetry 100 98 Oxygen Delivery Oxygen Flow Rate Fraction of Inspired Oxygen 03/17/23 20:00 03/17/23 20:13 03/17/23 23:15 Temperature Pulse Rate 93 95 Respiratory Rate 8 L Blood Pressure Pulse Oximetry 100 99 Oxygen Delivery Mechanical Ventilation Mechanical Ventilation Oxygen Flow Rate Fraction of Inspired Oxygen 50 50 03/17/23 20:45 03/18/23 00:00 03/18/23 00:00 Temperature Pulse Rate 97 98 Respiratory Rate 11 L Blood Pressure Pulse Oximetry 100 Oxygen Delivery Mechanical Ventilation Oxygen Flow Rate Fraction of Inspired Oxygen 45 03/18/23 00:00 03/18/23 02:00 03/18/23 02:00 Temperature 99.0 F Pulse R
[2023-03-19] VITALS (27 sets, daily range): BP systolic 116–164; BP diastolic 56–80; PULSE 66–108; RESP 18–24; TEMP 36.1–36.8; O2SAT 95–100; BMI 42.3
[2023-03-19 00:03] LABS: Vancomycin Trough 6.8 ug/mL (10.0-20.0)
[2023-03-19] MEDS: LORazepam (*CRX) 0.5 MG TABLET PO ×2 (01:09→09:14)
[2023-03-19] MEDS: ALBUTEROL SULFATE NEB 2.5 MG/3 ML INH INHALATION ×4 (02:10→20:05)
[2023-03-19] MEDS: IPRATROPIUM BR 0.02% INH SOLN 0.5 MG/2.5 ML VIAL INHALATION ×4 (02:10→20:06)
[2023-03-19] MEDS: ACETYLCYSTEINE 20% INHAL SOLN 800 MG/4 ML VIAL 200 MG INHALATION ×4 (02:31→20:06)
[2023-03-19 05:40] LABS: Eosinophils Absolute Auto 0.2 K/mm3 (0-0.3); Eosinophils Percent Auto 2.7 % (0-4.4); Hematocrit 31.7 % (42.0-52.0); Hemoglobin 9.3 g/dL (14.0-18.0); Immature Granulocyte Absolute 0.03 K/mm3 (0.00-0.031); Immature Granulocyte Percent A 0.4 % (0-0.5); Immature Platelet Fraction Pct 5.6 % (0.9-11.2); Lymphocytes Absolute Auto 0.82 K/mm3 (0.9-3.2); Lymphocytes Percent Auto 11.2 % (18.3-44.2); Mean Corpuscular HGB Conc 29.3 g/dl (32-36); Mean Corpuscular Hemoglobin 29.5 pg (26-34); Mean Corpuscular Volume 100.6 fl (80-100); Mean Platelet Volume 10.2 fl (7.4-10.4); Monocytes Absolute Auto 0.5 K/mm3 (0.1-0.6); Monocytes Percent Auto 6.6 % (2.6-8.5); Neutrophils Absolute Auto 5.8 K/mm3 (1.3-6.7); Neutrophils Percent Auto 79.1 % (45.5-73.1); Platelet Count Result 135 k/mm3 (150-375); Red Blood Count 3.15 M/mm3 (4.6-6.20); Red Cell Distribution Width 13.8 % (11.5-14.5); White Blood Count 7.3 K/mm3 (4.5-10.0)
[2023-03-19 06:24] LABS: Alanine Aminotransferase 31 U/L (6-50); Albumin Level 3.9 g/dL (3.5-5.1); Alkaline Phosphatase 63 U/L (38-126); Anion Gap 6 mmol/L (8-16); Aspartate Amino Transferase 22 U/L (17-59); Bilirubin,Total 0.4 mg/dL (0.2-1.3); Blood Urea Nitrogen 14 mg/dL (9-20); Carbon Dioxide 39 mmol/L (22-30); Chloride 97 mmol/L (98-107); Estimated CRCL calculation 217 ml/min; Estimated Glomerular Filt Rate > 60; Glucose 131 mg/dL (65-110); Magnesium 1.9 mg/dL (1.6-2.3); Potassium 3.5 mmol/L (3.4-5.0); Sodium 142 mmol/L (137-145)
[2023-03-19] MEDS: DORNASE ALFA INH SOLN 1 MG/ML 2.5 ML AMP 2.5 MG INHALATION ×2 (07:45→20:06)
[2023-03-19] MEDS: AZITHROMYCIN 500 MG/NS 250 ML 500 MG/250 ML BAG 250 MG IVPB (08:46)
[2023-03-19] MEDS: cefTRIAXone 2 GM/NS 100 ML 2 GM/100 ML BAG IVPB (08:47)
[2023-03-19] MEDS: PANTOPRAZOLE SODIUM IV 40 MG VIAL IV PUSH (08:49)
[2023-03-19] MEDS: METOPROLOL TARTRATE 50 MG TAB PO ×2 (08:49→21:20)
[2023-03-19] MEDS: DIVALPROEX SODIUM DR 250 MG TABEC PO ×3 (08:50→16:55)
[2023-03-19] MEDS: THERAPEUTIC MULTIVITAMINS/MINERALS TAB (*BKC) 1 TABLET PO (08:50)
[2023-03-19] MEDS: lisinopriL 5 MG TABLET PO (08:51)
[2023-03-19] MEDS: APIXABAN 5 MG TABLET PO ×2 (08:51→21:19)
[2023-03-19] MEDS: guaiFENesin 12 HR 600 MG TABCR PO ×2 (08:51→21:19)
[2023-03-19] MEDS: ESCITALOPRAM OXALATE 10 MG TABLET PO (08:51)
[2023-03-19] MEDS: busPIRone HCL 10 MG TABLET BY MOUTH ×3 (08:51→16:55)
[2023-03-19 14:53] LABS: NT Pro B Type Natriuretic Pept 185 pg/mL (19.9-100)
--- NOTE | 2023-03-19 16:05 | PM.IMPN ---
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 When EMS arrived he was hypoxic and was turning blue and gasping for breath. EMS needed to do bag valve ventilation. He denies any fever he has since arrival to the ED been placed on a ventilator admitted to the ICU for further treatment. WBC count normal 7 anemia mild at 10.3 renal function is normal. ABG with respiratory acidosis 7.2 C/101/100/41. COVID RSV flu was negative. Procalcitonin was 0 BNP 320. Troponin negative. Lactic acid was as 2.8. His hypoxia has improved since admission. Was placed on mechanical ventilation. Hypercapnia is resolved. Continue bronchodilator treatment and antibiotics. Ventilation has been discontinued and continue on oxygen supplementation as needed and taper/wean as tolerated Chest x-ray with a stenosis of the mid trachea distal to the TICU ostomy tube. Opacities in the medial left lung base which could represent atelectasis or pneumonia. Patient has been empirically started on antibiotics with azithromycin ceftriaxone vancomycin. Chest x-ray repeated with mild interstitial edema. Will give a dose of Lasix today. IV vancomycin is giving large amount of IV fluid. Will switch this to oral doxycycline. Linezolid had interaction with other medications that he currently on which is buspirone and escitalopram. DVT prophylaxis Lovenox Subjective Date/time seen: 03/19/23 16:05 Interval history: Transfer out of the ICU. Oxygen requirement has been stable. Discussed the nursing staff. Getting lot of fluid and vancomycin IV. MRSA nares positive. Review of Systems Review of Systems: All systems reviewed & are unremarkable except as noted in HPI and below Exam Narrative: GENERAL: Patient with morbid obesity, not in acute distress. HEAD: Normocephalic, atraumatic. EYES: PERRLA and EOMI. ENT: Nares clear, no rhinorrhea or epistaxis.? Mucous membranes moist. NECK: Supple.? Tracheostomy with high-flow oxygen on CHEST: Coarse breath sound bilaterally no respiratory distress. HEART: Regular rate and rhythm.? No murmur heard.? Normal peripheral pulses. ABDOMEN: Soft, nontender, nondistended, normal active bowel sounds. EXTREMITIES: Normal range of motion.? No edema. SKIN: Warm, dry, no rash. NEURO: No focal deficits.? Alert and oriented x3. PSYCH: Normal mood and affect. Objective Data Vital Signs Vital Signs: Vital Signs - 24 hr 03/18/23 18:20 03/18/23 18:00 03/18/23 20:00 Temperature 97.3 F L Pulse Rate 63 85 85 Respiratory Rate 16 20 Blood Pressure 134/64 Pulse Oximetry 98 100 Oxygen Delivery High Flow Therapy with Tr Oxygen Flow Rate 40 Fraction of Inspired Oxygen 35 03/18/23 21:02 03/18/23 21:15 03/18/23 21:15 Temperature Pulse Rate 92 93 Respiratory Rate 24 H Blood Pressure Pulse Oximetry 95 Oxygen Delivery High Flow Therapy with Tr Oxygen Flow Rate 40 Fraction of Inspired Oxygen 35 03/18/23 20:00 03/18/23 20:00 03/18/23 22:00 Temperature Pulse Rate 86 86 94 Respiratory Rate 24 H Blood Pressure Pulse Oximetry 95 Oxygen Delivery High Flow Therapy with Tr Oxygen Flow Rate 40 Fraction of Inspired Oxygen 35 03/19/23 00:00 03/19/23 00:00 03/19/23 00:42 Temperature 97.5 F L Pulse Rate 68 68 67 Respiratory Rate 24 H 22 H Blood Pressure 128/64 Pulse Oximetry 95 100 Oxygen Delivery High Flow Therapy with Tr Oxygen Flow Rate 40 Fraction of Inspired Oxygen 35 03/19/23 02:00 03/19/23
[2023-03-19] MEDS: FUROSEMIDE INJ 40 MG/4 ML VIAL IV PUSH (16:55)
[2023-03-19] MEDS: DOXYCYCLINE HYCLATE 100 MG TABLET PO (21:19)
[2023-03-20] VITALS (29 sets, daily range): BP systolic 117–170; BP diastolic 56–89; PULSE 62–95; RESP 16–22; TEMP 35.9–36.4; O2SAT 95–100
[2023-03-20] MEDS: ALBUTEROL SULFATE NEB 2.5 MG/3 ML INH INHALATION ×4 (01:11→20:53)
[2023-03-20] MEDS: IPRATROPIUM BR 0.02% INH SOLN 0.5 MG/2.5 ML VIAL INHALATION ×4 (01:11→20:54)
[2023-03-20] MEDS: ACETYLCYSTEINE 20% INHAL SOLN 800 MG/4 ML VIAL 200 MG INHALATION ×3 (01:12→16:09)
[2023-03-20 05:31] LABS: Basophils Percent Auto 0.2 % (0.2-1.2); Eosinophils Absolute Auto 0.2 K/mm3 (0-0.3); Eosinophils Percent Auto 3.5 % (0-4.4); Hematocrit 28.4 % (42.0-52.0); Hemoglobin 8.4 g/dL (14.0-18.0); Immature Granulocyte Absolute 0.02 K/mm3 (0.00-0.031); Immature Granulocyte Percent A 0.3 % (0-0.5); Immature Platelet Fraction Pct 5.8 % (0.9-11.2); Lymphocytes Absolute Auto 0.79 K/mm3 (0.9-3.2); Lymphocytes Percent Auto 13.1 % (18.3-44.2); Mean Corpuscular HGB Conc 29.6 g/dl (32-36); Mean Corpuscular Hemoglobin 29.6 pg (26-34); Mean Platelet Volume 10.1 fl (7.4-10.4); Monocytes Absolute Auto 0.7 K/mm3 (0.1-0.6); Monocytes Percent Auto 11.3 % (2.6-8.5); Neutrophils Absolute Auto 4.3 K/mm3 (1.3-6.7); Neutrophils Percent Auto 71.6 % (45.5-73.1); Platelet Count Result 124 k/mm3 (150-375); Red Blood Count 2.84 M/mm3 (4.6-6.20); Red Cell Distribution Width 13.7 % (11.5-14.5)
[2023-03-20 05:41] LABS: Potassium 3.8 mmol/L (3.4-5.0)
[2023-03-20 05:45] LABS: Alanine Aminotransferase 29 U/L (6-50); Albumin Level 3.5 g/dL (3.5-5.1); Alkaline Phosphatase 60 U/L (38-126); Aspartate Amino Transferase 21 U/L (17-59); Bilirubin,Total 0.3 mg/dL (0.2-1.3); Blood Urea Nitrogen 18 mg/dL (9-20); Calcium 8.7 mg/dL (8.4-10.2); Carbon Dioxide > 40 mmol/L (22-30); Chloride 96 mmol/L (98-107); Estimated CRCL calculation 221 ml/min; Estimated Glomerular Filt Rate > 60; Glucose 129 mg/dL (65-110); Magnesium 1.7 mg/dL (1.6-2.3); Sodium 143 mmol/L (137-145)
[2023-03-20 05:55] LABS: Anisocytosis 2+ (NORMAL); Platelet Estimate Adequate (Adequate); Schistocytes None Seen (NORMAL)
[2023-03-20] MEDS: busPIRone HCL 10 MG TABLET BY MOUTH ×3 (09:26→17:00)
[2023-03-20] MEDS: guaiFENesin 12 HR 600 MG TABCR PO ×2 (09:26→21:21)
[2023-03-20] MEDS: LORazepam (*CRX) 0.5 MG TABLET PO ×2 (09:26→21:22)
[2023-03-20] MEDS: METOPROLOL TARTRATE 50 MG TAB PO ×2 (09:26→21:21)
[2023-03-20] MEDS: lisinopriL 5 MG TABLET PO (09:27)
[2023-03-20] MEDS: APIXABAN 5 MG TABLET PO ×2 (09:27→21:21)
[2023-03-20] MEDS: THERAPEUTIC MULTIVITAMINS/MINERALS TAB (*BKC) 1 TABLET PO (09:27)
[2023-03-20] MEDS: DIVALPROEX SODIUM DR 250 MG TABEC PO ×3 (09:27→16:59)
[2023-03-20] MEDS: DOXYCYCLINE HYCLATE 100 MG TABLET PO ×2 (09:27→21:21)
[2023-03-20] MEDS: PANTOPRAZOLE SODIUM IV 40 MG VIAL IV PUSH (09:27)
[2023-03-20] MEDS: ESCITALOPRAM OXALATE 10 MG TABLET PO (09:27)
[2023-03-20] MEDS: cefTRIAXone 2 GM/NS 100 ML 2 GM/100 ML BAG IVPB (09:28)
[2023-03-20] MEDS: DORNASE ALFA INH SOLN 1 MG/ML 2.5 ML AMP 2.5 MG INHALATION ×2 (10:22→20:54)
--- NOTE | 2023-03-20 14:50 | PCRCNOTE ---
Spoke to Venus at [employer] phone # [phone]. She states that they will have an RT go to pt home with caregiver, mom, the afternoon to go over the home equipment. Rt will make sure mom is comfortable with home equip, humidity, suction, etc. and ensure its all set up and working properly prior to pt D/C
--- NOTE | 2023-03-20 17:15 | PM.IMPN ---
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 When EMS arrived he was hypoxic and was turning blue and gasping for breath. EMS needed to do bag valve ventilation. He denies any fever he has since arrival to the ED been placed on a ventilator admitted to the ICU for further treatment. WBC count normal 7 anemia mild at 10.3 renal function is normal. ABG with respiratory acidosis 7.2 C/101/100/41. COVID RSV flu was negative. Procalcitonin was 0 BNP 320. Troponin negative. Lactic acid was as 2.8. His hypoxia has improved since admission. Was placed on mechanical ventilation. Hypercapnia is resolved. Continue bronchodilator treatment and antibiotics. Ventilation has been discontinued and continue on oxygen supplementation as needed and taper/wean as tolerated. Pulmonary consultation Chest x-ray with a stenosis of the mid trachea distal to the TICU ostomy tube. Opacities in the medial left lung base which could represent atelectasis or pneumonia. Patient has been empirically started on antibiotics with azithromycin ceftriaxone vancomycin. Chest x-ray repeated with mild interstitial edema. Will give a dose of Lasix today. IV vancomycin is giving large amount of IV fluid. Will switch this to oral doxycycline. Linezolid had interaction with other medications that he currently on which is buspirone and escitalopram. Continue doxycycline. Will stop ceftriaxone at oxygen alone will be sufficient for treatment of community-acquired pneumonia DVT prophylaxis Lovenox Subjective Date/time seen: 03/20/23 17:15 Interval history: Breathing is better. Received IV Lasix yesterday for interstitial edema. Oxygen requirement has been improving. Review of Systems Review of Systems: All systems reviewed & are unremarkable except as noted in HPI and below Exam Narrative: GENERAL: Patient with morbid obesity, not in acute distress. Remains on Airvo 40 L 45% FiO2 HEAD: Normocephalic, atraumatic. EYES: PERRLA and EOMI. ENT: Nares clear, no rhinorrhea or epistaxis.? Mucous membranes moist. NECK: Supple.? Tracheostomy with high-flow oxygen on CHEST: Coarse breath sound bilaterally no respiratory distress. HEART: Regular rate and rhythm.? No murmur heard.? Normal peripheral pulses. ABDOMEN: Soft, nontender, nondistended, normal active bowel sounds. EXTREMITIES: Normal range of motion.? No edema. SKIN: Warm, dry, no rash. NEURO: No focal deficits.? Alert and oriented x3. PSYCH: Normal mood and affect. Objective Data Vital Signs Vital Signs: Vital Signs - 24 hr 03/19/23 18:00 03/19/23 20:07 03/19/23 20:07 Temperature Pulse Rate 92 68 87 Respiratory Rate 19 19 Blood Pressure Pulse Oximetry 98 Oxygen Delivery High Flow Therapy with Tr Oxygen Flow Rate 40 Fraction of Inspired Oxygen 55 03/19/23 20:13 03/19/23 20:26 03/19/23 21:20 Temperature 97.0 F L Pulse Rate 74 82 Respiratory Rate 22 H 20 Blood Pressure 130/58 L Pulse Oximetry 100 Oxygen Delivery Oxygen Flow Rate Fraction of Inspired Oxygen 03/20/23 00:00 03/20/23 01:12 03/20/23 01:12 Temperature 97.3 F L Pulse Rate 62 75 82 Respiratory Rate 22 H 20 20 Blood Pressure 118/67 Pulse Oximetry 100 99 Oxygen Delivery High Flow Therapy with Tr Oxygen Flow Rate 40 Fraction of Inspired Oxygen 55 03/20/23 01:28 03/19/23 20:00 03/19/23 20:00 Temperature Pulse Rate 77 94 Respiratory Rate 20 Blood Pressure Pulse Oximetry 100 Oxygen Delivery H
--- NOTE | 2023-03-20 20:05 | PM.CNPUL ---
Assessment and Plan Assessment and plan (1) Acute hypercapnic respiratory failure: Code(s): J96.02 - Acute respiratory failure with hypercapnia Status: Acute Assessment and Plan: He was admitted with acute hypercapnic respiratory failure, pCO2 > 100, improved with mechanical ventilation, pCo2 54- 60 range with ventilator, mucolytics, antibiotics, pulmonary hygiene with suctioning, bronchodilators. He has a #6 Shiley noncuffed trach. I am not sure what the detention plan for more treatment was at [facility]. He had tracheal revision for subglottic stenosis, still has an area of malacia in the lower trachea that collapses with coughing. He had weeks in a residential care facility, was not able to be liberated from the trach but is free from the vent over the last 2 days. His CXR 03/19 shows mild interstitial edema. His BNP has been low, Dec 2 was 320, Dec 4 was 185. This was higher last September 1159. (2) Status post tracheostomy: Code(s): Z93.0 - Tracheostomy status Status: Acute Assessment and Plan: He had revision, most recent placement was #6 Shiley Feb 13, 2023 at [facility], noncuffed. Was not using humidity with trach collar at home when secretions clogged his airway. Plan Trial of Vapotherm to ventilate in addition to oxygenate. Transcutaneous CO2 monitoring. this hi ranger operator be performed on IMU in his Room 213 which is a bit of a ways from nursing station. If necessary, will ventilate with regular ventilator but this would require return to ICU. He wants to try to stay off vent, obviously. He had an ABG Mar 3 with pH 7.42, pCO2 61, pO2 99, HCO3 38.8 on FiO2 40% and 5 PEEP. This is improved however was still getting vent support. This ABG = post hypercapnic metabolic alkalosis with compensatory respiratory acidosis. He is now on oral doxycycline, short acting bronchodilators, mucolytics. He is still going to need a plan for airway management. The Shiley #6 might be a bit small for his body habitus, may contribute to CO2 retention.He does not appear to be in volume overload, BNP is near normal. History of Present Illness History of Present Illness Consult date: 03/20/23 Requesting physician: Pete Freitas MD Chief complaint: Acute hypercapnic respiratory failure Narrative: pt seen Mar 20 at 20:20 NEW: Laith Chavez is a 42-yr-old man with acute hypercapnic respiratory failure; he has a complicated history, had a complex tracheal reconstruction with tracheal resection (after being on a vent 3 months) ; Feb 13 at [facility], ENT Dr Paul Moctezuma noted in the distal trachea a portion with malacia and collapse with coughing. Dr Aleman left the #[address] airway because it was not safe to decannulate him. The patient went to a intermediate manager care facility in [place] for a few weeks, went home Sunday to his parents' house with his trach in place. Dec 1. At home, in the middle of the night, he could not get suction to work, was plugging off, in distress, called 911. They arrived when he was hypoxic, turning blue and gasping for breath. He was rescued by EMS with bag-valve mask, cleared secretions; work up showed that he has a (+) MRSA nasal swab; his initial ABG Dec 2 = pH 7.236, pCO2 101, pO2 100, HCO3 41.9, on 50%, 40 L/min Airvo. He was placed on a ventilator, managed by network program manager Dr Young;he was on ASV mode using his non-cuffed trach. At home, he did not have humidity for O2 delivery using a trach collar. He has been treated with dornase zara /Pulmozyme, Mucomyst, Vancomycin, Rocephin and azithromycin. his procalcitonin was 0.0 negative on admission. At home, he was using 4 L/min O2 prior to admission. 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 His goal is to spend time with her, and has not been able to because of all his airway problems and being in hospitals/anurag
[2023-03-21] VITALS (28 sets, daily range): BP systolic 143–158; BP diastolic 76–103; PULSE 57–107; RESP 18–26; TEMP 36.1–36.6; O2SAT 97–100
[2023-03-21] MEDS: ALBUTEROL SULFATE NEB 2.5 MG/3 ML INH INHALATION ×4 (01:41→21:10)
[2023-03-21] MEDS: IPRATROPIUM BR 0.02% INH SOLN 0.5 MG/2.5 ML VIAL INHALATION ×4 (01:41→21:10)
--- NOTE | 2023-03-21 03:22 | PCRCNOTE ---
RT called Dr Thrasher on 03/20 at 2243 regarding the order she put in for pt to be put on Vapotherm therapy. Dr Thrasher is wanting pt to receive assistance ventilating as well as oxygenating. RT informed Dr. Thrasher that the department is out of trach adaptors for the Vapotherm. RT told Dr Thrasher the options are leaving pt on Airvo, or trying High flow therapy on bipap machine. Dr Thrasher wanted RT to try high flow therapy on bipap machine. Pt on 40 % 02 30L and maintaining this well. Dr Thrasher also informed RT to D/C her request for transcutaneous C02 monitoring, as she was informed respiratory does not have transcutaneous monitoring. ABG ordered for 12/6 AM to reevaluate pt ventilating status while on high flow therapy from bipap machine
[2023-03-21 05:21] LABS: Base Excess ABG 13.6 mEq/l (+/-2.0); Fractional Inspired Oxygen 40 %; HCO3 ABG 42.2 mEq/l (22.0-26.0); Oxygen Content ABG 14.1 %vol (16.0-22.0); Oxygen Saturation ABG 98.4 % (95.0-100.0); Oxyhemoglobin 97.1 % THb (90.0-100.0); PO2 ABG 135.8 mmHg (80.0-100.0); PO2 FiO2 Ratio Arterial Blood 3.39 %; Total Hemoglobin 10.1 g/dL (12.0-18.0); pH ABG 7.329 (7.350-7.450)
[2023-03-21 05:23] LABS: Device HIGH FLOW THERAPY; Modified Allen's Test Pass; PCO2 ABG 82.1 mmHg (35.0-45.0); Site Drawn RIGHT RADIAL
[2023-03-21] MEDS: DIVALPROEX SODIUM DR 250 MG TABEC PO ×3 (08:25→17:27)
[2023-03-21] MEDS: ESCITALOPRAM OXALATE 10 MG TABLET PO (08:25)
[2023-03-21] MEDS: APIXABAN 5 MG TABLET PO ×2 (08:25→20:37)
[2023-03-21] MEDS: PANTOPRAZOLE SODIUM IV 40 MG VIAL IV PUSH (08:26)
[2023-03-21] MEDS: busPIRone HCL 10 MG TABLET BY MOUTH ×3 (08:26→17:27)
[2023-03-21] MEDS: guaiFENesin 12 HR 600 MG TABCR PO ×2 (08:26→20:36)
[2023-03-21] MEDS: DOXYCYCLINE HYCLATE 100 MG TABLET PO ×2 (08:26→20:36)
[2023-03-21] MEDS: LORazepam (*CRX) 0.5 MG TABLET PO ×2 (08:26→20:37)
[2023-03-21] MEDS: METOPROLOL TARTRATE 50 MG TAB PO ×2 (08:26→20:36)
[2023-03-21] MEDS: THERAPEUTIC MULTIVITAMINS/MINERALS TAB (*BKC) 1 TABLET PO (08:26)
[2023-03-21] MEDS: lisinopriL 5 MG TABLET PO (08:26)
[2023-03-21] MEDS: DORNASE ALFA INH SOLN 1 MG/ML 2.5 ML AMP 2.5 MG INHALATION ×2 (09:25→21:10)
--- NOTE | 2023-03-21 14:55 | PM.IMPN ---
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 Patient was recently at the long-term facility and was discharged home, patient has a chronic tracheostomy for approximately 5-6 months.? EMS assisted with bag-mask ventilation and improved his oxygenation.? Patient has had a history of mucus plugging in the past.? In the ER patient was awake, alert.? Patient was placed on the ventilator and transferred to the ICU for further management.? Initial ABG showed a pH of 7.23, pCO2 of 101 and PO2 of 100 on 40 L and 50% FiO2 high-flow therapy. Was admitted to the ICU, started on bronchodilators, ceftriaxone, azithromycin. Was transferred out of ICU to step-down unit eventually. 1. Tracheal stenosis+ +respiratory failure: Continue with albuterol, ipratropium Continue with ceftriaxone and doxycycline Respiratory support as per Pulmonary Call placed to [facility] transfer line to see if he can be transferred over for definitive management of his tracheal stenosis ?Trial of Vapotherm to ventilate in addition to oxygenate. Transcutaneous CO2 monitoring.? Continue with mucolytic 2. Hypertension: Continue with lisinopril, metoprolol 3. Continue with other home medications 4. History of DVT: Continue with Eliquis 5. Code status: Full 6. Disposition: Pending improvement Time Spent With Patient Time with patient: 15 - 25 minutes Subjective Date/time seen: 03/21/23 14:55 Interval history: No acute events overnight Review of Systems Review of Systems: All systems reviewed & are unremarkable except as noted in HPI and below Exam Narrative: GENERAL: Patient with morbid obesity, not in acute distress. Remains on Airvo 40 L 36% FiO2 HEAD: Normocephalic, atraumatic. EYES: PERRLA and EOMI. ENT: Nares clear, no rhinorrhea or epistaxis.? Mucous membranes moist. NECK: Supple.? Tracheostomy with high-flow oxygen on CHEST: Coarse breath sound bilaterally no respiratory distress. HEART: Regular rate and rhythm.? No murmur heard.? Normal peripheral pulses. ABDOMEN: Soft, nontender, nondistended, normal active bowel sounds. EXTREMITIES: Normal range of motion.? No edema. SKIN: Warm, dry, no rash. NEURO: No focal deficits.? Alert and oriented x3. PSYCH: Normal mood and affect. Objective Data Vital Signs Vital Signs: Vital Signs - 24 hr 03/20/23 16:14 03/20/23 16:25 03/20/23 16:00 Temperature 97.1 F L Pulse Rate 70 75 79 Respiratory Rate 18 18 16 Blood Pressure 128/63 Pulse Oximetry 99 Oxygen Delivery Oxygen Flow Rate Fraction of Inspired Oxygen 03/20/23 16:00 03/20/23 16:00 03/20/23 18:00 Temperature Pulse Rate 89 95 Respiratory Rate Blood Pressure Pulse Oximetry 99 Oxygen Delivery High Flow Therapy with Tr Oxygen Flow Rate 20 Fraction of Inspired Oxygen 36 03/20/23 20:25 03/20/23 20:54 03/20/23 21:05 Temperature 97.1 F L Pulse Rate 94 86 81 Respiratory Rate 18 18 18 Blood Pressure 158/89 H Pulse Oximetry 99 Oxygen Delivery Oxygen Flow Rate Fraction of Inspired Oxygen 03/20/23 21:21 03/20/23 20:00 03/20/23 20:00 Temperature Pulse Rate 79 79 79 Respiratory Rate 18 Blood Pressure Pulse Oximetry 99 Oxygen Delivery High Flow Therapy with Tr Oxygen Flow Rate 25 Fraction of Inspired Oxygen 36 03/20/23 23:38 03/21/23 00:00 03/21/23 00:00 Temperature 97.1 F L Pulse Rate 72 81 81 Respiratory Rate 18 18 Blo
[2023-03-22] VITALS (24 sets, daily range): BP systolic 136–177; BP diastolic 76–91; PULSE 64–102; RESP 14–24; TEMP 36–36.6; O2SAT 96–100
[2023-03-22] MEDS: IPRATROPIUM BR 0.02% INH SOLN 0.5 MG/2.5 ML VIAL INHALATION ×4 (02:31→21:03)
[2023-03-22] MEDS: ALBUTEROL SULFATE NEB 2.5 MG/3 ML INH INHALATION ×4 (02:41→21:03)
[2023-03-22 05:01] LABS: Basophils Percent Auto 0.2 % (0.2-1.2); Eosinophils Absolute Auto 0.1 K/mm3 (0-0.3); Eosinophils Percent Auto 2.7 % (0-4.4); Hematocrit 26.3 % (42.0-52.0); Hemoglobin 7.9 g/dL (14.0-18.0); Immature Granulocyte Absolute 0.01 K/mm3 (0.00-0.031); Immature Granulocyte Percent A 0.2 % (0-0.5); Immature Platelet Fraction Pct 4.2 % (0.9-11.2); Lymphocytes Absolute Auto 1.47 K/mm3 (0.9-3.2); Lymphocytes Percent Auto 30.6 % (18.3-44.2); Mean Corpuscular Hemoglobin 29.6 pg (26-34); Mean Corpuscular Volume 98.5 fl (80-100); Monocytes Absolute Auto 0.5 K/mm3 (0.1-0.6); Neutrophils Absolute Auto 2.7 K/mm3 (1.3-6.7); Neutrophils Percent Auto 56.3 % (45.5-73.1); Platelet Count Result 154 k/mm3 (150-375); Red Blood Count 2.67 M/mm3 (4.6-6.20); Red Cell Distribution Width 13.4 % (11.5-14.5); White Blood Count 4.8 K/mm3 (4.5-10.0)
[2023-03-22 05:11] LABS: Blood Urea Nitrogen 14 mg/dL (9-20); Calcium 8.9 mg/dL (8.4-10.2); Carbon Dioxide > 40 mmol/L (22-30); Chloride 95 mmol/L (98-107); Estimated CRCL calculation 221 ml/min; Estimated Glomerular Filt Rate > 60; Glucose 87 mg/dL (65-110); Potassium 3.8 mmol/L (3.4-5.0); Sodium 140 mmol/L (137-145)
[2023-03-22] MEDS: ACETAMINOPHEN 500 MG TABLET PO (06:45)
[2023-03-22] MEDS: ESCITALOPRAM OXALATE 10 MG TABLET PO (09:21)
[2023-03-22] MEDS: DIVALPROEX SODIUM DR 250 MG TABEC PO ×3 (09:21→17:33)
[2023-03-22] MEDS: DOXYCYCLINE HYCLATE 100 MG TABLET PO ×2 (09:21→22:14)
[2023-03-22] MEDS: PANTOPRAZOLE SODIUM IV 40 MG VIAL IV PUSH (09:23)
[2023-03-22] MEDS: APIXABAN 5 MG TABLET PO ×2 (09:23→22:15)
[2023-03-22] MEDS: lisinopriL 5 MG TABLET PO (09:23)
[2023-03-22] MEDS: THERAPEUTIC MULTIVITAMINS/MINERALS TAB (*BKC) 1 TABLET PO (09:23)
[2023-03-22] MEDS: busPIRone HCL 10 MG TABLET BY MOUTH ×3 (09:23→17:33)
[2023-03-22] MEDS: METOPROLOL TARTRATE 50 MG TAB PO ×2 (09:24→22:15)
[2023-03-22] MEDS: LORazepam (*CRX) 0.5 MG TABLET PO ×2 (09:27→17:35)
[2023-03-22] MEDS: guaiFENesin 12 HR 600 MG TABCR PO ×2 (09:29→22:14)
[2023-03-22] MEDS: DORNASE ALFA INH SOLN 1 MG/ML 2.5 ML AMP 2.5 MG INHALATION ×2 (09:36→21:03)
[2023-03-22 11:48] LABS: Alveolar/Arterial O2 Gradient 24.8 mmHg; Base Excess ABG 10.9 mEq/l (+/-2.0); Fractional Inspired Oxygen 26 %; HCO3 ABG 36.9 mEq/l (22.0-26.0); Oxygen Content ABG 12.3 %vol (16.0-22.0); Oxyhemoglobin 95.3 % THb (90.0-100.0); PO2 ABG 91.9 mmHg (80.0-100.0); PO2 FiO2 Ratio Arterial Blood 3.53 %; Total Hemoglobin 9.1 g/dL (12.0-18.0); pH ABG 7.421 (7.350-7.450)
[2023-03-22 11:50] LABS: Device HIGH FLOW THERAPY; Modified Allen's Test Pass; Site Drawn LEFT RADIAL
--- NOTE | 2023-03-22 11:55 | PCPTNOTE ---
Spoke with Dr. Jansen who OK the removal of Bedrest orders for therapy to work with pt. Will make RN aware.
--- NOTE | 2023-03-22 15:41 | PM.IMPN ---
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 Patient was recently at the long-term facility and was discharged home, patient has a chronic tracheostomy for approximately 5-6 months.? EMS assisted with bag-mask ventilation and improved his oxygenation.? Patient has had a history of mucus plugging in the past.? In the ER patient was awake, alert.? Patient was placed on the ventilator and transferred to the ICU for further management.? Initial ABG showed a pH of 7.23, pCO2 of 101 and PO2 of 100 on 40 L and 50% FiO2 high-flow therapy. Was admitted to the ICU, started on bronchodilators, ceftriaxone, azithromycin. Was transferred out of ICU to step-down unit eventually. 1. Tracheal stenosis+ +respiratory failure: Continue with albuterol, ipratropium Continue with ceftriaxone and doxycycline Respiratory support as per Pulmonary has been accepted to [facility], pending availability Meanwhile will get ENT consult to see if he would benefit from change trach with a higher size, possibly cuffed Continue with mucolytic 2. Hypertension: Continue with lisinopril, metoprolol 3. Continue with other home medications 4. History of DVT: Continue with Eliquis 5. Code status: Full 6. Disposition: Pending improvement Time Spent With Patient Time with patient: 15 - 25 minutes Subjective Date/time seen: 03/22/23 15:41 Interval history: No acute events overnight, ABG seems to be better today Received a call from [facility], was advised to get in touch with ENT over here to see if he would benefit from higher size trach likely cuffed Review of Systems Review of Systems: All systems reviewed & are unremarkable except as noted in HPI and below Exam Narrative: GENERAL: Patient with morbid obesity, not in acute distress. Remains on Airvo 40 L 36% FiO2 HEAD: Normocephalic, atraumatic. EYES: PERRLA and EOMI. ENT: Nares clear, no rhinorrhea or epistaxis.? Mucous membranes moist. NECK: Supple.? Tracheostomy with high-flow oxygen on CHEST: Coarse breath sound bilaterally no respiratory distress. HEART: Regular rate and rhythm.? No murmur heard.? Normal peripheral pulses. ABDOMEN: Soft, nontender, nondistended, normal active bowel sounds. EXTREMITIES: Normal range of motion.? No edema. SKIN: Warm, dry, no rash. NEURO: No focal deficits.? Alert and oriented x3. PSYCH: Normal mood and affect. Objective Data Vital Signs Vital Signs: Vital Signs - 24 hr 03/21/23 16:00 03/21/23 20:36 03/21/23 16:00 Temperature 97.9 F Pulse Rate 76 89 Respiratory Rate 24 H Blood Pressure 143/76 H Pulse Oximetry 98 98 Oxygen Delivery High Flow Therapy with Tr Oxygen Flow Rate 25 Fraction of Inspired Oxygen 36 03/21/23 16:00 03/21/23 18:00 03/21/23 20:38 Temperature 97.3 F L Pulse Rate 66 80 79 Respiratory Rate 18 Blood Pressure 149/89 H Pulse Oximetry 98 Oxygen Delivery Oxygen Flow Rate Fraction of Inspired Oxygen 03/21/23 20:00 03/21/23 21:14 03/21/23 21:16 Temperature Pulse Rate 79 57 L Respiratory Rate 18 18 Blood Pressure Pulse Oximetry 98 99 Oxygen Delivery High Flow Therapy with Tr High Flow Therapy with Tr Oxygen Flow Rate 30 30 Fraction of Inspired Oxygen 26 27 03/21/23 21:37 03/21/23 20:00 03/21/23 23:52 Temperature 97.3 F L Pulse Rate 59 L 77 67 Respiratory Rate 18 18 Blood Pressure 146/79 H Pulse Oximetry 99 Oxygen Delivery Oxygen Flow
--- NOTE | 2023-03-22 16:16 | PM.PNPUL ---
Progress Note: A&P Assessment and Plan (1) Acute hypercapnic respiratory failure: Code(s): J96.02 - Acute respiratory failure with hypercapnia Status: Acute Assessment and Plan: He was admitted with 03/17/23 with acute hypercapnic respiratory failure, pCO2 > 100, improved with mechanical ventilation, pCO2 54-60 range with ventilator, mucolytics, antibiotics, pulmonary hygiene with suctioning, bronchodilators. He has a #6 Shiley noncuffed trach. I am not sure what the rodent exterminator plan for more treatment was at [facility]. He had tracheal revision for subglottic stenosis Feb 13, still has an area of malacia in the lower trachea that collapses with coughing. 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 His CXR 03/19 shows mild interstitial edema. His BNP has been low, Mar 17 was 320, Mar 19 was 185.? This was higher last September 1159. Dr Jada Jansen spoke with doctors at [facility] who recommended Dr Nieto place a larger cuffed trach. She contacted his office, so he is aware. (2) Status post tracheostomy: Code(s): Z93.0 - Tracheostomy status Status: Acute Assessment and Plan: He had revision, most recent placement was #6 Shiley Feb 13, 2023 at [facility], noncuffed. Was not using humidity with trach collar at home when secretions clogged his airway. Subjective Date/time seen: 03/22/23 16:16 Interval history: hospital follow up : 03/22/23 : He is stable, sitting up in bed, no distress, on AirVo with FiO2 29%; no thick secretions. His ABG today is improved; pH 7.42 pCO2 58 PO2 91.9 HC03 is 36.9 on about 29% FiO2. His hypercapnea is much better, and O2 requirement is lower. Dr Jansen spoke with [facility] doctors who recommended ENT here place larger cuffed trach. Mar 20, new consult; Laith Chavez is a 42-yr-old man with acute hypercapnic respiratory failure; he has a complicated history, had a complex tracheal reconstruction with tracheal resection (after being on a vent 3 months) ; Feb 13 at [facility], ENT Dr Paul Moctezuma noted in the distal trachea a portion with malacia and collapse with coughing.? Dr Aleman left the #[address] airway because it was not safe to decannulate him.? The patient went to a [facility] care facility in [place] for a few weeks, went home Sunday to his parents' house with his trach in place. Dec 1. At home, in the middle of the night, he could not get suction to work, was plugging off, in distress, called 911. They arrived when he was hypoxic, turning blue and gasping for breath. He was rescued by EMS with bag-valve mask, cleared secretions; work up showed that he has a (+) MRSA nasal swab; his initial ABG Mar 2 = pH 7.236, pCO2 101, pO2 100, HCO3 41.9, on 50%, 40 L/min Airvo. He was placed on a ventilator, managed by parachute panel joiner Dr Young;he was on ASV mode using his non-cuffed trach. At home, he did not have humidity for O2 delivery using a trach collar. He has been treated with dornase zara /Pulmozyme, Mucomyst, Vancomycin, Rocephin and azithromycin. his procalcitonin was 0.0 negative on admission.? At home, he was using 4 L/min O2 prior to admission. 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 His goal is to spend time with her, and has not been able to because of all his airway problems and being in hospitals/rehab. ? DATA * 03/19/23 CXR-?: Status post median sternotomy for CABG. Cardiomegaly. Mild interstitial edema. Tracheostomy tube present. No significant effusion. No pneumothorax. Impression:? Cardiomegaly with mild interstitial edema. Review of Systems Review of Systems: All systems reviewed & are unremarkable except as noted in HPI and below Exam Narrative: GEN: Alert, oriented, not in distress. He has a tracheostomy #6 Shiley; AirVo, 29% and 30 L/min w
--- NOTE | 2023-03-22 18:19 | WPDCN ---
Assessment and Plan Assessment and plan (1) Stenosis of trachea: Code(s): J39.8 - Other specified diseases of upper respiratory tract Status: Acute Assessment and Plan: Subglottis not examined. Fairly significant tracheal stenosis just distal to the trachea. Unsure if it represents granulation tissue from the trachea itself or restenoses/abnormal granulation tissue at the resection reanastomosis operative site. Recommend nebulized steroids. Recommend transfer to [facility]. Patient likely needs bronchoscopy for evaluation of operative site and abnormal granulation tissue. HPI Data of Consult Date/Time: 03/22/23 18:19 Requesting Physician: Pete Feritas MD Primary Care Provider: Chris Lugo DO Consult Narrative Narrative: Laith Chavez is a 42 year old male with subglottic as well as tracheal stenosis status post tracheal resection reanastomosis by [facility] thoracic surgery. Presents with shortness of breath. Review of Systems Review of Systems: All systems reviewed & are unremarkable except as noted in HPI and below PMFSH Past Medical History Medical History (Updated 03/17/23 @ 11:58 by Chino Young MD) Decubitus ulcer of right leg, stage 3 Legally blind Metatarsal bone fracture Right foot pain Sacral decubitus ulcer, stage III Sacral decubitus ulcer, stage IV Stenosis of trachea Weight gain Family History Family History Unknown Heart disease Kidney disease Lung disease Mother Urethra cancer Social History Social History Smoking packs per day: 1 Smoking cigarettes per day: 20.0 Years smoked: 20 Smoking pack-years: 20.00 Smoking status: Never smoker Alcohol intake: never Drinks per week: 5 Substance use: never Substance use type: does not use Lack of Transportation: No Lack of Food: Never True Current Housing: I Have Housing Concerned About Future Housing: No Difficulty Paying Gas/Electric Bills: No Difficulty Paying for Meds: No Currently Unemployed: No Education: High School Diploma/GED Difficulty w/ Childcare or Family Care: No Living arrangements: with family Occupation/Education: other Additional occupation/education comments: disabled Gender identity (if verbalized by the patient): Male Spiritual care concerns: No Meds Home Medications and Allergies Home Medications Medication Instructions Recorded Confirmed Type divalproex 250 mg tablet,delayed 250 mg PO TID #270 tabs 09/18/22 03/17/23 Rx release albuterol sulfate 90 mcg/actuation 1 puff inhalation Q4H PRN 09/19/22 03/17/23 Rx aerosol inhaler shortness of breath or wheezing #18 grams buspirone 10 mg tablet See Rx Instructions .Route 12/15/22 03/17/23 Rx .COMPLEX #90 tabs acetaminophen 500 mg tablet 500 mg PO TID PRN Pain 03/17/23 03/17/23 History albuterol sulfate 2.5 mg/3 mL 2.5 mg inhalation Q4H PRN 03/17/23 03/17/23 History (0.083 %) solution for nebulization Shortness Of Breath apixaban 5 mg tablet (Eliquis) 5 mg PO Q12H 03/17/23 03/17/23 History escitalopram oxalate 10 mg tablet 10 mg PO DAILY 03/17/23 03/17/23 History guaifenesin 600 mg tablet, 600 mg PO Q12H 03/17/23 03/17/23 History extended release 12 hr (Mucinex) hydrocodone 5 mg-acetaminophen 325 1 tablet PO Q6H PRN pain 03/17/23 03/17/23 History mg tablet lisinopril 5 mg tablet 5 mg PO DAILY 03/17/23 03/17/23 History lorazepam 0.5 mg tablet (Ativan) 0.5 mg PO Q8H PRN Anxiety 03/17/23 03/17/23 History metoprolol tartrate 50 mg tablet 50 mg PO Q12H 03/17/23 03/17/23 History multivitamin with minerals-folic 1 tablet PO DAILY 03/17/23 03/17/23 History acid 0.4 mg tablet omeprazole 40 mg capsule,delayed 40 mg PO DAILY 03/17/23 03/17/23 History release oxycodone 5 mg capsule 5 mg PO Q6H PRN Pain 03/17/23 03/17/23 History sennosides 8.6 mg ta
--- NOTE | 2023-03-22 18:21 | P.PCNBED_ITS ---
Procedures Other Procedures Procedure 1: Other Procedure: Tracheoscopy all the consents obtained. Laryngoscope passed through the trach. Abnormal granulation appearing tissue at the distal portion of the trach. Unsure if this represents granulation tissue from the trach itself or from the o perative site. Distal to the narrowed airway there was significant tracheomalacia. The widest portion of the S base between the granulation tissue appeared to be about the with of the scope which was 4 mm.
[2023-03-22] MEDS: BUDESONIDE RESPULE NEB 0.5 MG/2 ML AMP INHALATION (21:03)
[2023-03-23] VITALS (26 sets, daily range): BP systolic 119–188; BP diastolic 59–124; PULSE 58–103; RESP 12–28; TEMP 36.1–36.7; O2SAT 92–100
[2023-03-23] MEDS: ALBUTEROL SULFATE NEB 2.5 MG/3 ML INH INHALATION ×3 (02:45→15:47)
[2023-03-23] MEDS: IPRATROPIUM BR 0.02% INH SOLN 0.5 MG/2.5 ML VIAL INHALATION ×3 (02:45→15:47)
[2023-03-23 04:48] LABS: Basophils Percent Auto 0.2 % (0.2-1.2); Eosinophils Absolute Auto 0.1 K/mm3 (0-0.3); Eosinophils Percent Auto 2.6 % (0-4.4); Hematocrit 28.9 % (42.0-52.0); Hemoglobin 8.8 g/dL (14.0-18.0); Immature Granulocyte Absolute 0.02 K/mm3 (0.00-0.031); Immature Granulocyte Percent A 0.4 % (0-0.5); Lymphocytes Absolute Auto 1.67 K/mm3 (0.9-3.2); Lymphocytes Percent Auto 30.4 % (18.3-44.2); Mean Corpuscular HGB Conc 30.4 g/dl (32-36); Mean Corpuscular Hemoglobin 29.7 pg (26-34); Mean Corpuscular Volume 97.6 fl (80-100); Mean Platelet Volume 9.5 fl (7.4-10.4); Monocytes Absolute Auto 0.5 K/mm3 (0.1-0.6); Monocytes Percent Auto 9.1 % (2.6-8.5); Neutrophils Absolute Auto 3.2 K/mm3 (1.3-6.7); Neutrophils Percent Auto 57.3 % (45.5-73.1); Platelet Count Result 160 k/mm3 (150-375); Red Blood Count 2.96 M/mm3 (4.6-6.20); Red Cell Distribution Width 13.3 % (11.5-14.5); White Blood Count 5.5 K/mm3 (4.5-10.0)
[2023-03-23] MEDS: LORazepam (*CRX) 0.5 MG TABLET PO ×2 (05:02→13:29)
[2023-03-23 05:48] LABS: Blood Urea Nitrogen 13 mg/dL (9-20); Calcium 9.1 mg/dL (8.4-10.2); Carbon Dioxide > 40 mmol/L (22-30); Chloride 97 mmol/L (98-107); Estimated CRCL calculation 219 ml/min; Estimated Glomerular Filt Rate > 60; Glucose 86 mg/dL (65-110); Potassium 4.3 mmol/L (3.4-5.0); Sodium 140 mmol/L (137-145)
[2023-03-23] MEDS: DORNASE ALFA INH SOLN 1 MG/ML 2.5 ML AMP 2.5 MG INHALATION (08:47)
[2023-03-23] MEDS: BUDESONIDE RESPULE NEB 0.5 MG/2 ML AMP INHALATION (08:47)
[2023-03-23] MEDS: APIXABAN 5 MG TABLET PO (09:00)
[2023-03-23] MEDS: ESCITALOPRAM OXALATE 10 MG TABLET PO (09:00)
[2023-03-23] MEDS: DOXYCYCLINE HYCLATE 100 MG TABLET PO (09:00)
[2023-03-23] MEDS: lisinopriL 5 MG TABLET PO (09:00)
[2023-03-23] MEDS: DIVALPROEX SODIUM DR 250 MG TABEC PO ×3 (09:00→18:04)
[2023-03-23] MEDS: guaiFENesin 12 HR 600 MG TABCR PO (09:00)
[2023-03-23] MEDS: METOPROLOL TARTRATE 50 MG TAB PO (09:00)
[2023-03-23] MEDS: PANTOPRAZOLE SODIUM IV 40 MG VIAL IV PUSH (09:00)
[2023-03-23] MEDS: busPIRone HCL 10 MG TABLET BY MOUTH ×3 (09:00→18:04)
[2023-03-23] MEDS: THERAPEUTIC MULTIVITAMINS/MINERALS TAB (*BKC) 1 TABLET PO (09:00)
--- NOTE | 2023-03-23 12:57 | PM.PNPUL ---
Progress Note: A&P Assessment and Plan (1) Acute hypercapnic respiratory failure: Code(s): J96.02 - Acute respiratory failure with hypercapnia Status: Acute Assessment and Plan: Stable bur has potential to deteriorate; admitted 03/17/23 with acute hypercapnic respiratory failure, pCO2 > 100, improved with mechanical ventilation, pCO2 54-60 range with ventilator, mucolytics, antibiotics, pulmonary hygiene with suctioning, bronchodilators. He has a #6 Shiley non-cuffed trach. Dr Nieto saw him 03/22, did laryngoscopy, saw a tiny airway in the distal trachea 4 mm which is at risk for being blocked off by even a small amount of sputum. He had tracheal revision for subglottic stenosis Feb 13, still has an area of malacia in the lower trachea that collapses with coughing. He had weeks in a alf care facility, was not able to be liberated from the trach. He has been off vent is CXR 03/19 shows mild interstitial edema. His BNP has been low, Mar 17 was 320, Mar 19 was 185.? This was higher last September 1159. (2) Status post tracheostomy: Code(s): Z93.0 - Tracheostomy status Status: Acute Assessment and Plan: He had revision, most recent placement was #6 Shiley Feb 13, 2023 at [facility], noncuffed. Was not using humidity with trach collar at home when secretions clogged his airway. Plan I called [facility] transfer line today, . He is still on their radar, no bed today 03/23/23. I spoke with Dr Nieto. Plan for today is to replace the #6 uncuffed Shiley with a #6 cuffed Shiley; this will maintain improved ventilation, and get the edge of the old trach off the mucosa, may slow the granulation process. He might have matured granulation tissue. If so, changing hte trach and inhaled steroids won't help. Subjective Date/time seen: 03/23/23 12:57 Interval history: hospital follow up : 03/23/23: He is stable, in bed, not having distress. Dr Nieto saw yesterday, scoped, saw the tiny 4mm distal tracheal opening. Budesonide nebulized was started yesterday in hopes of calming down and shrinking granulation tissue at the end of the #[address] Nieto stated on Mar 22 ?Fairly significant tracheal stenosis just distal to the trachea.? Unsure if it represents granulation tissue from the trachea itself or restenoses/abnormal granulation tissue at the resection reanastomosis operative site.? Recommend nebulized steroids.? Recommend transfer to [facility].? Patient likely needs bronchoscopy for evaluation of operative site and abnormal granulation tissue. 03/22/23 : He is stable, sitting up in bed, no distress, on AirVo with FiO2 29%; no thick secretions. His ABG today is improved; pH 7.42 pCO2 58 PO2 91.9 HC03 is 36.9 on about 29% FiO2. His hypercapnea is much better, and O2 requirement is lower. Dr Jansen spoke with [facility] doctors who recommended ENT here place larger cuffed trach. Mar 20, new consult; Laith Chavez is a 42-yr-old man with acute hypercapnic respiratory failure; he has a complicated history, had a complex tracheal reconstruction with tracheal resection (after being on a vent 3 months) ; Feb 13 at [facility], ENT Dr Paul Moctezuma noted in the distal trachea a portion with malacia and collapse with coughing.? Dr Aleman left the #[address] airway because it was not safe to decannulate him.? The patient went to a halfway care facility in [place] for a few weeks, went home Sunday to his parents' house with his trach in place. Dec 1. At home, in the middle of the night, he could not get suction to work, was plugging off, in distress, called 911. They arrived when he was hypoxic, turning blue and gasping for breath. He was rescued by EMS with bag-valve mask, cleared secretions; work up showed that he has a (+) MRSA nasal swab; his initial ABG Dec 2 = pH 7.236, pCO2 101, pO2 100,
--- NOTE | 2023-03-23 13:18 | PM.IMPN ---
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 Patient was recently at the long-term facility and was discharged home, patient has a chronic tracheostomy for approximately 5-6 months.? EMS assisted with bag-mask ventilation and improved his oxygenation.? Patient has had a history of mucus plugging in the past.? In the ER patient was awake, alert.? Patient was placed on the ventilator and transferred to the ICU for further management.? Initial ABG showed a pH of 7.23, pCO2 of 101 and PO2 of 100 on 40 L and 50% FiO2 high-flow therapy. Was admitted to the ICU, started on bronchodilators, ceftriaxone, azithromycin. Was transferred out of ICU to step-down unit eventually. 1. Tracheal stenosis+ +respiratory failure: Continue with albuterol, ipratropium Continue with ceftriaxone and doxycycline Respiratory support as per Pulmonary has been accepted to [facility], after discussion between [facility] surgeon and Dr. Nieto over here, he has been made as a high priority transfer, pending bed availability Appreciate ENT help Continue with mucolytic 2. Hypertension: Continue with lisinopril, metoprolol 3. Continue with other home medications 4. History of DVT: Continue with Eliquis 5. Code status: Full 6. Disposition: Pending improvement, pending transfer to [facility], pending bed availability Time Spent With Patient Time with patient: 15 - 25 minutes Subjective Date/time seen: 03/23/23 13:18 Interval history: No acute events overnight Review of Systems Review of Systems: All systems reviewed & are unremarkable except as noted in HPI and below Exam Narrative: GEN: Alert, oriented, not in distress. He has a tracheostomy #6 Shileys. HEENT: pupils are equal, EOMI, symmetrical face; oral membranes moist NECK: Trachea is midline CHEST: Equal air entry, symmetric excursion, mostly clear lungs CV: Regular S1S2 no m/g/r ABD : (+) bowel sounds Extremities : no clubbing, cyanosis, or edema PSYCH: normal thought Objective Data Vital Signs Vital Signs: Vital Signs - 24 hr 03/22/23 14:10 03/22/23 14:19 03/22/23 16:00 Temperature 97 F L Pulse Rate 70 71 75 Respiratory Rate 20 20 24 H Blood Pressure 147/84 H Pulse Oximetry 99 Oxygen Delivery Oxygen Flow Rate Fraction of Inspired Oxygen 03/22/23 15:26 03/22/23 14:00 03/22/23 16:00 Temperature Pulse Rate 70 Respiratory Rate Blood Pressure Pulse Oximetry 99 Oxygen Delivery Trach Collar High Flow Therapy with Tr Oxygen Flow Rate 30 30 Fraction of Inspired Oxygen 27 03/22/23 16:00 03/22/23 18:00 03/22/23 20:00 Temperature 98 F Pulse Rate 71 84 75 Respiratory Rate 20 Blood Pressure 141/76 H Pulse Oximetry 96 Oxygen Delivery Oxygen Flow Rate Fraction of Inspired Oxygen 03/22/23 21:03 03/22/23 21:16 03/22/23 21:16 Temperature Pulse Rate 83 77 Respiratory Rate 20 20 Blood Pressure Pulse Oximetry 100 Oxygen Delivery High Flow Therapy with Tr Oxygen Flow Rate 30 Fraction of Inspired Oxygen 29 03/22/23 22:15 03/23/23 00:00 03/22/23 20:00 Temperature 97.6 F Pulse Rate 78 58 L Respiratory Rate 20 Blood Pressure 133/78 Pulse Oximetry 100 96 Oxygen Delivery High Flow Therapy with Tr Oxygen Flow Rate 30 Fraction of Inspired Oxygen 29 03/22/23 20:00 03/22/23 22:00 03/23/23 00:00 Temperature Pulse Rate 85 75 Respiratory Rate Blo
--- NOTE | 2023-03-23 14:05 | PCOTNOTE ---
Attempted to see Patient. MD came in discussion with Patient about trach options. Patient will be moved to ICU for a procedure, not able to be seen at this time.
--- NOTE | 2023-03-23 14:58 | PC.NURSE ---
Time Out at this time with MD and pt prior to moderate sedation for trach tube change.
[2023-03-23] MEDS: MIDAZOLAM HCL (*CRX) 2 MG/2 ML VIAL IV PUSH (15:10)
--- NOTE | 2023-03-23 15:13 | PC.NURSE ---
Procedure started at 1510. pt was given 1 mg Versed IVP by Maryjane Conte RN
--- NOTE | 2023-03-23 15:28 | PC.NURSE ---
Patient brought over to ICU room 11 at 1426 for tracheostomy exchange per Dr. Nieto. Report given to MARIA DEL CARMEN Hawkins with optical laboratory manager team. Shruthi to resume patient care at this time.
--- NOTE | 2023-03-23 15:34 | PC.NURSE ---
1mg versed given at 1514 for moderate sedation. VSS, see meditech for vitals.
--- NOTE | 2023-03-23 15:35 | PC.NURSE ---
procedure finished at 1520. VSS. pt still on full vent support. Will be admitted as an ICU patient from this point forward
--- NOTE | 2023-03-23 15:40 | PC.NURSE ---
Received report from Anabel silva RN. Assuming care of patient.
--- NOTE | 2023-03-23 16:09 | P.PCNBED_ITS ---
Procedures Other Procedures Procedure 1: Other Procedure: Trach change all consents obtained proximal XLT removed 6 Shiley cuffed placed. Patient did not tolerate well he had worsening dyspnea. Cuff was inflated patient was placed on the vent and he vitals normal eyes and the patient report ed felt comfortable. Procedure 2: Other Procedure: Tracheoscopy All consents obtained. Flexible laryngoscope passed to the trachea. Unfortunately there was several cm of stenosed trachea at what I am assuming is the previous operative site. Perhaps granulation tissue from the proximal XLT which extends essentially from the distal portion of the current trach several cm inferiorly with tracheomalacia noted below it.
--- NOTE | 2023-03-23 16:13 | PM.PNGS ---
Progress Note: A&P Assessment and Plan (1) Stenosis of trachea: Code(s): J39.8 - Other specified diseases of upper respiratory tract Status: Acute Assessment and Plan: Trach changed to a 6 cuffed. Given the shorter trachea was able to further evaluate a more superior portion of the trachea. Unfortunately there is severe stenosis from the distal portion of the shorter trachea several cm below with tracheomalacia below that. Would recommend keeping the patient in the ICU perhaps keeping him on the ventilator as he seems comfortable now. Call placed to [facility] to assist with urgent transfer. [facility] responded and is working on it. Subjective Subjective Date/Time Seen: 03/23/23 16:13 Objective Data Vital Signs Vital Signs: Vital Signs - 24 hr 03/22/23 18:00 03/22/23 20:00 03/22/23 21:03 Temperature 36.6 C Pulse Rate 84 75 83 Respiratory Rate 20 20 Blood Pressure 141/76 H Pulse Oximetry 96 Oxygen Delivery Oxygen Flow Rate Fraction of Inspired Oxygen 03/22/23 21:16 03/22/23 21:16 03/22/23 22:15 Temperature Pulse Rate 77 78 Respiratory Rate 20 Blood Pressure Pulse Oximetry 100 Oxygen Delivery High Flow Therapy with Tr Oxygen Flow Rate 30 Fraction of Inspired Oxygen 29 03/23/23 00:00 03/22/23 20:00 03/22/23 20:00 Temperature 36.4 C Pulse Rate 58 L 85 Respiratory Rate 20 Blood Pressure 133/78 Pulse Oximetry 100 96 Oxygen Delivery High Flow Therapy with Tr Oxygen Flow Rate 30 Fraction of Inspired Oxygen 29 03/22/23 22:00 03/23/23 00:00 03/23/23 02:45 Temperature Pulse Rate 75 63 Respiratory Rate 20 Blood Pressure Pulse Oximetry 98 Oxygen Delivery High Flow Therapy with Tr Oxygen Flow Rate 30 Fraction of Inspired Oxygen 29 03/23/23 02:55 03/23/23 00:00 03/23/23 04:00 Temperature 36.1 C L Pulse Rate 58 L 62 63 Respiratory Rate 20 22 H Blood Pressure 164/87 H Pulse Oximetry 100 Oxygen Delivery Oxygen Flow Rate Fraction of Inspired Oxygen 03/23/23 02:00 03/23/23 04:00 03/23/23 04:00 Temperature Pulse Rate 58 L 63 Respiratory Rate Blood Pressure Pulse Oximetry 100 Oxygen Delivery High Flow Therapy with Tr Oxygen Flow Rate 30 Fraction of Inspired Oxygen 29 03/23/23 06:00 03/23/23 07:58 03/23/23 08:50 Temperature 36.3 C L Pulse Rate 67 85 78 Respiratory Rate 20 Blood Pressure 172/95 H Pulse Oximetry 96 100 Oxygen Delivery High Flow Therapy with Tr Oxygen Flow Rate 30 Fraction of Inspired Oxygen 30 03/23/23 08:50 03/23/23 09:16 03/23/23 11:14 Temperature 36.1 C L Pulse Rate 70 74 66 Respiratory Rate 20 20 24 H Blood Pressure 133/59 L Pulse Oximetry 98 Oxygen Delivery Oxygen Flow Rate Fraction of Inspired Oxygen 03/23/23 09:00 03/23/23 08:00 03/23/23 10:00 Temperature Pulse Rate 66 88 82 Respiratory Rate Blood Pressure Pulse Oximetry Oxygen Delivery Oxygen Flow Rate Fraction of Inspired Oxygen 03/23/23 12:00 03/23/23 14:00 03/23/23 14:36 Temperature Pulse Rate 63 61 69 Respiratory Rate 14 Blood Pressure 121/96 H Pulse Oximetry 99 Oxygen Delivery Oxygen Flow Rate Fraction of Inspired Oxygen 03/23/23 15:10 03/23/23 15:30 03/23/23 15:45 Temperature Pulse Rate 70 82 81 Respiratory Rate 16 24 H 22 H Blood Pressure 153/88 H 164/103 H 139/90 Pulse Oximetry 99 99 92 Oxygen Delivery Oxygen Flow Rate Fraction of Inspired Oxygen 03/23/23 15:15 03/23/23 15:48 03/23/23 08:00 Temperature Pulse Rate 92 103 H Respiratory Rate 28 H 22 H Blood Pressure 188/92 H Pulse Oximetry 98 98 Oxygen Delivery High Flow Therapy with Tr Oxygen Flow Rate 30 Fraction of Inspired Oxygen 29 03/23/23 12:00 Temperature Pulse Rate Respiratory Rate Blood Pressure Pulse Oximetry 99 Oxygen Delivery High Flow Therapy with Tr Oxygen Flow Rate 30 Fr
--- NOTE | 2023-03-23 16:16 | PM.TDS ---
Transfer Discharge Sum: Prov Provider Date of admission: 03/17/23 17:33 Primary care physician: Chris Lugo DO Admitting clinician: Pete Freitas MD Consults: 03/17/23 07:35 Consult to Physician Routine Comment: Consulting Provider: Chino Young Reason for consultation: Hypercapnic respiratory failure Has provider been notified: Yes 03/20/23 09:35 Consult to Physician Routine Comment: Spoke with and notified her of consult Consulting Provider: Sofy Thrasher faculty i on call medical assistant/MD group to consult: pulmonary Reason for consultation: resp failure Has provider been notified: Yes 03/22/23 Consult to Physician Routine Comment: spoke with Dr. Nieto @1000(,) Consulting Provider: Manny Nieto Reason for consultation: need trach cuff change, ?bigger size Has provider been notified: Yes DS: Admitting Diagnosis Discharge Date 03/23/23 Admitting Diagnosis Acute on chronic hypercapnic respiratory failure DS: Discharge Diagnosis Discharge Diagnosis (1) Stenosis of trachea: Code(s): J39.8 - Other specified diseases of upper respiratory tract Status: Acute (2) Acute hypercapnic respiratory failure: Code(s): J96.02 - Acute respiratory failure with hypercapnia Status: Acute Transfer Discharge Sum: Med Medications Active and Home Medications: Home Medications divalproex 250 mg tablet,delayed release 250 mg PO TID #270 tabs 09/18/22 [Rx Confirmed 03/17/23] albuterol sulfate 90 mcg/actuation aerosol inhaler 1 puff inhalation Q4H PRN shortness of breath or wheezing #18 grams 09/19/22 [Rx Confirmed 03/17/23] buspirone 10 mg tablet See Rx Instructions .Route .COMPLEX #90 tabs 12/15/22 [Rx Confirmed 03/17/23] acetaminophen 500 mg tablet 500 mg PO TID PRN Pain 03/17/23 [History Confirmed 03/17/23] albuterol sulfate 2.5 mg/3 mL (0.083 %) solution for nebulization 2.5 mg inhalation Q4H PRN Shortness Of Breath 03/17/23 [History Confirmed 03/17/23] apixaban 5 mg tablet (Eliquis) 5 mg PO Q12H 03/17/23 [History Confirmed 03/17/23] escitalopram oxalate 10 mg tablet 10 mg PO DAILY 03/17/23 [History Confirmed 03/17/23] guaifenesin 600 mg tablet, extended release 12 hr (Mucinex) 600 mg PO Q12H 03/17/23 [History Confirmed 03/17/23] hydrocodone 5 mg-acetaminophen 325 mg tablet 1 tablet PO Q6H PRN pain 03/17/23 [History Confirmed 03/17/23] lisinopril 5 mg tablet 5 mg PO DAILY 03/17/23 [History Confirmed 03/17/23] lorazepam 0.5 mg tablet (Ativan) 0.5 mg PO Q8H PRN Anxiety 03/17/23 [History Confirmed 03/17/23] metoprolol tartrate 50 mg tablet 50 mg PO Q12H 03/17/23 [History Confirmed 03/17/23] multivitamin with minerals-folic acid 0.4 mg tablet 1 tablet PO DAILY 03/17/23 [History Confirmed 03/17/23] omeprazole 40 mg capsule,delayed release 40 mg PO DAILY 03/17/23 [History Confirmed 03/17/23] oxycodone 5 mg capsule 5 mg PO Q6H PRN Pain 03/17/23 [History Confirmed 03/17/23] sennosides 8.6 mg tablet (senna) 8.6 mg PO DAILY PRN Constipation 03/17/23 [History Confirmed 03/17/23] Active Medications Acetaminophen (Acetaminophen 500 Mg Tablet) 500 mg PO TID PRN PRN Reason: Pain Last Admin: 03/22/23 06:45 Dose: 500 mg Albuterol (Albuterol Sulfate Neb 2.5 Mg/3 Ml Inh) 2.5 mg INHALATION Q6HRT [facility] Last Admin: 03/23/23 15:47 Dose: 2.5 mg Apixaban (Apixaban 5 Mg Tablet) 5 mg PO Q12HR [facility] Last Admin: 03/23/23 09:00 Dose: 5 mg Budesonide (Budesonide Respule Neb 0.5 Mg/2 Ml Amp) 0.5 mg INHALATION Q12HRT [facility] Last Admin: 03/23/23 08:47 Dose: 0.5 mg Buspirone HCl (Buspirone Hcl 10 Mg Tablet) 10 mg BY MOUTH TID [facility] Last Admin: 03/23/23 12:37 Dose: 10 mg Divalproex Sodium (Divalproex Sodium Dr 250 Mg Tabec) 250 mg PO TID [facility] Last Admin: 03/23/23 12:37 Dose: 250 mg Dornase Ellis (Dornase Ellis Inh Soln 1 Mg/Ml 2.5 Ml Amp) 2.5 mg INHALATION Q12HRT [facility] Last Admin: 03/23/23 08:47 Dose: 2.5 mg Doxycycline Hyclate (Doxycycline Hyclate 100 Mg Tablet) 100 mg PO Q12HR [facility] Last Adm
--- NOTE | 2023-03-23 16:23 | PC.NURSE ---
Called report to MARIA DEL CARMEN Chen at [facility].
--- NOTE | 2023-03-23 18:40 | PC.NURSE ---
[address] staff member Anabel notified patient in route to hospital.
== END 2023-03-23 18:40 | disposition short-term general hospital (02) | DRG 208 ==
LOC: ANHED 07:36 → ANHICU 08:16 → ANHIMU 03-18 13:18 → ANHICU 03-23 16:00
PROVIDERS: Internal Medicine; Internal Medicine Critical Care Medicine; Admitting Provider Internal Medicine; Emergency Provider Emergency Medicine; PCP Internal Medicine; Visit Provider Internal Medicine
DX: J96.22 Acute and chronic respiratory failure with hypercapnia (principal); L89.893 Pressure ulcer of other site, stage 3; L89.153 Pressure ulcer of sacral region, stage 3; J39.8 Other specified diseases of upper respiratory tract; H54.7 Unspecified visual loss; J38.6 Stenosis of larynx; Z86.718 Personal history of other venous thrombosis and embolism; Z20.822 Contact with and (suspected) exposure to COVID-19; Z87.891 Personal history of nicotine dependence; Z79.01 Long term (current) use of anticoagulants; Z93.0 Tracheostomy status
CPT/HCPCS: 36415; 36600; 71045; 80048; 80053; 80202; 81001; 82375; 82805; 83050; 83605; 83690; 83735; 83880; 84100; 84145; 84484; 85025; 85055; 85610; 85730; 87040; 87086; 87637; 87641; 93005; 94002; 94003; 94640; 96365; 96367; 96375; 97161; 97165; 99291; A9270; C9113; G0378; J0456; J0696; J1650; J1940; J2250; J3370; J3475; J3480; J7030; J7040

== ENCOUNTER 2023-05-20 02:12 | Observation (INO) | payer OTHER, SELFPAY ==
[2023-05-20] VITALS (31 sets, daily range): BP systolic 125–180; BP diastolic 72–99; PULSE 76–114; RESP 12–24; TEMP 36.2–37; O2SAT 93–100
--- NOTE | ~2023-05-20 | XR_ITS ---
EXAMINATION: XR chest 1V portable INDICATION: Shortness of breath TECHNIQUE: Portable AP chest at 0339 hours COMPARISON: 03/19/2023 FINDINGS: A tracheostomy is in expected position. Cardiomegaly is noted. There is a mild diffuse inte rstitial pattern. Median sternotomy wires are consistent with prior cardiac surgery. IMPRESSION: 1. Cardiomegaly with mild pulmonary edema. Reviewed, dictated and finalized at location A. [employer]
--- NOTE | 2023-05-20 02:20 | PC.NURSE ---
pt to ed with an uncuffed trach in place and intact. pt states he has a size 6 trach. Pt also states that he has a humidifer at home but has had 3 within the last week due to them not working well. Pt states he hasn't changed out the inner cannula since having this trach collar. Pt states he had trach collar put in place about 6 months ago.
[2023-05-20 02:39] LABS: Basophils Absolute Auto 0.1 K/mm3 (0.0-0.1); Basophils Percent Auto 0.3 % (0.2-1.2); Eosinophils Absolute Auto 0.1 K/mm3 (0-0.3); Eosinophils Percent Auto 0.3 % (0-4.4); Hemoglobin 11.6 g/dL (14.0-18.0); Immature Granulocyte Absolute 0.04 K/mm3 (0.00-0.031); Immature Granulocyte Percent A 0.2 % (0-0.5); Lymphocytes Absolute Auto 0.75 K/mm3 (0.9-3.2); Lymphocytes Percent Auto 4.4 % (18.3-44.2); Mean Corpuscular HGB Conc 29.7 g/dl (32-36); Mean Corpuscular Hemoglobin 30.3 pg (26-34); Mean Corpuscular Volume 101.8 fl (80-100); Mean Platelet Volume 10.6 fl (7.4-10.4); Monocytes Percent Auto 5.7 % (2.6-8.5); Neutrophils Percent Auto 89.1 % (45.5-73.1); Platelet Count Result 183 k/mm3 (150-375); Red Blood Count 3.83 M/mm3 (4.6-6.20); Red Cell Distribution Width 13.1 % (11.5-14.5); White Blood Count 16.9 K/mm3 (4.5-10.0)
[2023-05-20] MEDS: IPRATROPIUM 0.5 MG/ALBUTEROL SULFATE 2.5 MG AMPUL.NEB 3 ML INHALATION ×5 (02:45→19:26)
[2023-05-20 02:52] LABS: Prothrombin Time 13.3 Seconds (11.1-14.7)
[2023-05-20 02:53] LABS: Lactic Acid Reflex 0.9 mmol/L (0.7-2.0)
[2023-05-20 02:54] LABS: Partial Thromboplastin Time 31.4 SECONDS (22.3-36.8)
[2023-05-20 03:03] LABS: Alanine Aminotransferase 16 U/L (6-50); Albumin Level 4.2 g/dL (3.5-5.1); Alkaline Phosphatase 66 U/L (38-126); Aspartate Amino Transferase 18 U/L (17-59); Bilirubin,Total 0.5 mg/dL (0.2-1.3); Blood Urea Nitrogen 15 mg/dL (9-20); Calcium 9.1 mg/dL (8.4-10.2); Carbon Dioxide > 40 mmol/L (22-30); Chloride 99 mmol/L (98-107); Estimated CRCL calculation 181 ml/min; Estimated Glomerular Filt Rate > 60; Glucose 118 mg/dL (65-110); Magnesium 1.8 mg/dL (1.6-2.3); Potassium 4.2 mmol/L (3.4-5.0); Sodium 142 mmol/L (137-145)
[2023-05-20 03:17] LABS: Procalcitonin 0.1 ng/mL
--- NOTE | 2023-05-20 04:20 | ED.GENADULT ---
HPI - General Adult General Chief complaint: Shortness of Breath/Dyspnea Stated complaint: PLUGGED TRACH, SOB Time Seen by Provider: 05/20/23 02:20 History of Present Illness HPI narrative: patient 42-year-old gentleman who presents emergency department with chief complaint of shortness of breath. The patient reports that he has history of a tracheostomy has been home and tonight felt as though he was mucous plugging. The patient reports he has had issues with malfunctioning of the humidification system for his trach. The patient denies fever reports that he has had some wheezing present Related Data Home Medications Medication Instructions Recorded Confirmed apixaban 5 mg tablet (Eliquis) 5 mg PO Q12H 03/17/23 04/27/23 guaifenesin 600 mg tablet, 600 mg PO Q12H 03/17/23 04/27/23 extended release 12 hr (Mucinex) multivitamin with minerals-folic 1 tablet PO DAILY 03/17/23 04/27/23 acid 0.4 mg tablet sennosides 8.6 mg tablet (senna) 8.6 mg PO DAILY PRN Constipation 03/17/23 04/27/23 chlorhexidine gluconate 0.12 % 15 ml mucous membrane BID 04/27/23 04/27/23 mouthwash levalbuterol HCl 1.25 mg/3 mL 1.25 mg inhalation Q4H PRN 04/27/23 04/27/23 solution for nebulization shortness of breath or wheezing Allergies Allergy/AdvReac Type Severity Reaction Status Date / Time codeine Allergy Unknown Unknown Verified 05/20/23 02:31 Review of Systems Review of Systems: A 10 system review of systems was completed on the patient and is negative except for what is stated in the HPI. Nursing and ancillary documentation was reviewed. [facility] Past Medical History Medical History Decubitus ulcer of right leg, stage 3 Legally blind Metatarsal bone fracture Right foot pain Sacral decubitus ulcer, stage III Sacral decubitus ulcer, stage IV Stenosis of trachea Weight gain Family History Family History Unknown Heart disease Kidney disease Lung disease Mother Urethra cancer Social History Social History Smoking packs per day: 1 Smoking cigarettes per day: 20.0 Years smoked: 20 Smoking pack-years: 20.00 Smoking status: Never smoker Alcohol intake: never Drinks per week: 5 Substance use: never Substance use type: does not use Lack of Transportation: No Lack of Food: Never True Current Housing: I Have Housing Concerned About Future Housing: No Difficulty Paying Gas/Electric Bills: No Difficulty Paying for Meds: No Currently Unemployed: No Education: High School Diploma/GED Difficulty w/ Childcare or Family Care: No Living arrangements: with family Occupation/Education: other Additional occupation/education comments: disabled Gender identity (if verbalized by the patient): Male Spiritual care concerns: No Course Course Emergency Course: GENERAL: Well-appearing, well-nourished, and in no acute distress. HEAD: Normocephalic, atraumatic. EYES: PERRLA and EOMI. ENT: Nares clear, no rhinorrhea or epistaxis. Mucous membranes moist. NECK: Supple. CHEST: scattered wheezes to auscultation. No respiratory distress. HEART: Regular rate and rhythm. No murmur heard. Normal peripheral pulses. ABDOMEN: Soft, nontender, nondistended, normal active bowel sounds. EXTREMITIES: Normal range of motion. No edema. SKIN: Warm, dry, no rash. NEURO: No focal deficits. Alert and oriented x3. PSYCH: Normal mood and affect. Vital Signs Vital signs: Vital Signs Temperature 37.0 C 05/20/23 02:11 Pulse Rate 114 H 05/20/23 02:11 Respiratory Rate 17 05/20/23 02:11 Blood Pressure 180/99 H 05/20/23 02:11 Pulse Oximetry 93 05/20/23 02:11 Oxygen Delivery Trach Collar 05/20/23 02:11 Temperature 37.0 C 05/20/23 02:11 Pulse Rate 89 05/20/23 05:10 Respiratory Rate 20 05/20/23
[2023-05-20 05:13] LABS: Influenza A QL RT-PCR Negative (Negative); Influenza B QL RT-PCR Negative (Negative); RSV RNA, RT-PCR Negative (Negative); SARS-CoV-2 RNA PCR Negative (Negative)
--- NOTE | 2023-05-20 07:18 | PM.IMHP ---
H&P: HPI History of Present Illness Date/Time: 05/20/23 07:18 Chief Complaint: dyspnea Narrative: 42-year-old gentleman with history of COPD and tracheal stenosis after endotracheal intubation jaiden a chronic tracheostomy. He was discharged last month from [facility] and then [facility]. He was feeling great until about 2 days prior to admission. At that point he began having increased dyspnea on exertion simply walking from his bed to the bathroom. Also noted increased cough with inability to produce sputum. Chills. Sweats. Fatigue. Did not check his temperature. During the housing counselor of admission he awakened at 1:00 a.m. unable to breathe. He was able to a set up move about in breathe better. When he awakened at 2:00 a.m. he was unable to resolve the issue. He called EMS and was brought to the emergency department. After suctioning large amounts of thick material from his trachea he was feeling much better. For the past week he has had issues with his humidity for his tracheostomy. He is on his 3rd machine this week. He utilizes a ventilator at night while sleeping. There is no moisture with the ventilator. He is a former smoker. Quit about 1 year ago after 18-20 years of 1 pack per day. He denied chest pain abdominal pain GI or issues. Appetite is good. Weight has been stable. Denied focal weakness or numbness or headaches. Denied abnormal bleeding including hemoptysis. 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 Former smoker. Quit about 1 year ago. Former drinker. Quit about 1 year ago. Former use of cannabis. Quit about 1 year ago. Former use of hallucinogenic mushrooms. Quit about 5 years ago. . Resides with mother and stepfather. Smoking packs per day: 1 Smoking cigarettes per day: 20.0 Years smoked: 20 Smoking pack-years: 20.00 Smoking status: Former smoker Tobacco type: cigarettes Second hand tobacco smoke exposure: No Alcohol intake: former Drinks per week: 1 Substance use: former Substance use type: hallucinogens Do You Feel Safe in your Home?: Yes Lack of Transportation: No Lack of Food: Never True Current Housing: I Have Housing Concerned About Future Housing: No Difficulty Paying Gas/Electric Bills: No Difficulty Paying for Meds: No Currently Unemployed: No Education: High School Diploma/GED Difficulty w/ Childcare or Family Care: No Living arrangements: with family Occupation/Education: other Additional occupation/education comments: disabled Gender identity (if verbalized by the patient): Male Sexual Orientation (if Verbalized by the Patient): Straight or Heterosexual Spiritual care concerns: No Meds Home Medications and Allergies Home Medications Medication Instructions Recorded Confirmed Type divalproex 250 mg tablet,delayed 250 mg PO TID #270 tabs 09/18/22 04/27/23 Rx release buspirone 10 mg tablet See Rx Instructions .Route 12/15/22 04/27/23 Rx .COMPLEX #90 tabs apixaban
[2023-05-20] MEDS: predniSONE 20 MG TABLET 40 MG PO (09:33)
[2023-05-20] MEDS: AZITHROMYCIN 500 MG/NS 250 ML 500 MG/250 ML BAG 250 MG IVPB (10:30)
[2023-05-20 10:51] LABS: Alveolar/Arterial O2 Gradient 158.5 mmHg; Fractional Inspired Oxygen 44 %; HCO3 ABG 34.8 mEq/l (22.0-26.0); Oxygen Content ABG 14.6 %vol (16.0-22.0); Oxygen Saturation ABG 96.1 % (95.0-100.0); Oxyhemoglobin 95.5 % THb (90.0-100.0); PO2 ABG 86.4 mmHg (80.0-100.0); PO2 FiO2 Ratio Arterial Blood 1.96 %; Total Hemoglobin 10.8 g/dL (12.0-18.0); pH ABG 7.378 (7.350-7.450)
[2023-05-20 10:56] LABS: Device HIGH FLOW THERAPY; Modified Allen's Test Pass; PCO2 ABG 60.4 mmHg (35.0-45.0); Site Drawn RIGHT RADIAL
--- NOTE | 2023-05-20 11:30 | PC.NURSE ---
mother to bring in med bottles to confirm home meds
--- NOTE | 2023-05-20 14:58 | PC.NURSE ---
mother has brought in list to confirm home meds
[2023-05-20] MEDS: DIVALPROEX SODIUM DR 250 MG TABEC PO (17:22)
[2023-05-20] MEDS: busPIRone HCL 10 MG TABLET PO (17:22)
[2023-05-20] MEDS: CHLORHEXIDINE GLUCONATE 0.12% ORAL RINSE 473 ML BTL (*BKC) 15 ML SWISH/SPIT (17:23)
[2023-05-20] MEDS: guaiFENesin 12 HR 600 MG TABCR PO (20:31)
[2023-05-20] MEDS: METOPROLOL TARTRATE 50 MG TAB PO (20:31)
[2023-05-20] MEDS: APIXABAN 5 MG TABLET PO (20:32)
[2023-05-20] MEDS: DOXYCYCLINE HYCLATE 100 MG TABLET PO (20:32)
[2023-05-21] VITALS (16 sets, daily range): BP systolic 120–128; BP diastolic 50–78; PULSE 70–104; RESP 16–22; TEMP 36.2–36.5; O2SAT 94–100; BMI 38.8
[2023-05-21] MEDS: LORazepam (*CRX) 0.5 MG TABLET PO (00:22)
[2023-05-21] MEDS: IPRATROPIUM 0.5 MG/ALBUTEROL SULFATE 2.5 MG AMPUL.NEB 3 ML INHALATION ×4 (01:34→19:40)
[2023-05-21 06:07] LABS: Basophils Percent Auto 0.3 % (0.2-1.2); Eosinophils Absolute Auto 0.1 K/mm3 (0-0.3); Eosinophils Percent Auto 0.9 % (0-4.4); Hematocrit 33.1 % (42.0-52.0); Hemoglobin 9.9 g/dL (14.0-18.0); Immature Granulocyte Absolute 0.05 K/mm3 (0.00-0.031); Immature Granulocyte Percent A 0.5 % (0-0.5); Lymphocytes Absolute Auto 1.82 K/mm3 (0.9-3.2); Lymphocytes Percent Auto 18.6 % (18.3-44.2); Mean Corpuscular HGB Conc 29.9 g/dl (32-36); Mean Corpuscular Hemoglobin 30.6 pg (26-34); Mean Corpuscular Volume 102.2 fl (80-100); Mean Platelet Volume 10.2 fl (7.4-10.4); Monocytes Absolute Auto 0.7 K/mm3 (0.1-0.6); Monocytes Percent Auto 6.9 % (2.6-8.5); Neutrophils Absolute Auto 7.1 K/mm3 (1.3-6.7); Neutrophils Percent Auto 72.8 % (45.5-73.1); Platelet Count Result 155 k/mm3 (150-375); Red Blood Count 3.24 M/mm3 (4.6-6.20); White Blood Count 9.8 K/mm3 (4.5-10.0)
[2023-05-21 06:22] LABS: Alanine Aminotransferase 14 U/L (6-50); Albumin Level 3.6 g/dL (3.5-5.1); Alkaline Phosphatase 54 U/L (38-126); Aspartate Amino Transferase 14 U/L (17-59); Bilirubin,Total 0.4 mg/dL (0.2-1.3); Blood Urea Nitrogen 15 mg/dL (9-20); Calcium 9.1 mg/dL (8.4-10.2); Carbon Dioxide > 40 mmol/L (22-30); Chloride 101 mmol/L (98-107); Estimated CRCL calculation 181 ml/min; Estimated Glomerular Filt Rate > 60; Glucose 96 mg/dL (65-110); Potassium 3.5 mmol/L (3.4-5.0); Sodium 142 mmol/L (137-145)
[2023-05-21 06:50] LABS: Hypochromasia 1+ (NORMAL); Platelet Estimate Adequate (Adequate); Schistocytes None Seen (NORMAL)
[2023-05-21] MEDS: lisinopriL 5 MG TABLET PO (08:44)
[2023-05-21] MEDS: METOPROLOL TARTRATE 50 MG TAB PO ×2 (08:45→20:49)
[2023-05-21] MEDS: APIXABAN 5 MG TABLET PO ×2 (08:45→20:49)
[2023-05-21] MEDS: DIVALPROEX SODIUM DR 250 MG TABEC PO ×3 (08:45→17:27)
[2023-05-21] MEDS: guaiFENesin 12 HR 600 MG TABCR PO ×2 (08:45→20:48)
[2023-05-21] MEDS: PANTOPRAZOLE 40 MG TABLET PO (08:45)
[2023-05-21] MEDS: ESCITALOPRAM OXALATE 10 MG TABLET 20 MG PO (08:45)
[2023-05-21] MEDS: DOXYCYCLINE HYCLATE 100 MG TABLET PO ×2 (08:45→20:49)
[2023-05-21] MEDS: predniSONE 20 MG TABLET 40 MG PO (08:45)
[2023-05-21] MEDS: busPIRone HCL 10 MG TABLET PO ×3 (08:45→17:27)
[2023-05-21] MEDS: THERAPEUTIC MULTIVITAMINS/MINERALS TAB (*BKC) 1 TABLET PO (08:45)
[2023-05-21] MEDS: CHLORHEXIDINE GLUCONATE 0.12% ORAL RINSE 473 ML BTL (*BKC) 15 ML SWISH/SPIT ×2 (08:53→17:27)
--- NOTE | 2023-05-21 11:05 | PM.CNPUL ---
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 He presented with a day's history of worsening breathlessness. It was discovered that the patient had thick bronchial secretions that could not be removed via the tracheostomy. However, his respiratory status noticeably improved following suctioning in the emergency room. The patient's condition is now back to his usual state. He initially presented with leukocytosis upon admission, but his white blood cell count has returned to the normal range based on today's tests. He is currently on antibiotics to treat a potential lower respiratory tract infection. The patient has been diagnosed with Chronic Obstructive Pulmonary Disease (COPD), although there are no available results from pulmonary function testing. Considering his age, it's unlikely that his hypercapnia is due to COPD. The hypercapnia is more likely a result of obesity hypoventilation. The patient has been using home ventilatory support since his evaluation at [facility]. As for the treatment plan, we will persist with the existing regimen of pulmonary hygiene, nebulized short-acting bronchodilators, and antibiotics, while waiting for the results of the sputum culture. It is likely that we will d/c steroid treatment in the morning. 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 He reported a day-long episode of worsening breathlessness. At home, he utilizes a humidifier, additional oxygen, and a home ventilator. Typically, the patient self-aspirates his tracheal secretions. However, he encountered difficulties with his oxygen humidifying device, resulting in the formation of thick tracheal secretions that he could not self-aspirate. This led to an escalation in his breathlessness. He also indicated experiencing fever and chills, but no chest pain or blood in his sputum. His condition substantially improved after a large volume of thick secretion was aspirated from his trachea. In the past week, the patient has struggled with maintaining adequate humidity in his tracheostomy and is presently on his third device. He uses a non-humidifying ventilator at night. The patient, a former smoker, quit about a year ago after an 18-20 year habit of smoking a pack a day. He has been diagnosed with Chronic Obstructive Pulmonary Disease (COPD), but no pulmonary function test results are available. A review of his latest hospital admission revealed chronic hypercapnic respiratory failure. He uses nebulized short-acting bronchodilators at home and an additional inhaler twice daily. Review of Systems Review of Systems: All systems reviewed & are unremarkable except as noted in HPI and below (HPI and below) [facility] Past Medical History Medical History (Updated 05/20/23 @ 09:18 by Raudel Bautista MD) COPD (chronic obstructive pulmonary disease) Decubitus ulcer of right leg, stage 3 Legally blind Metatarsal bone fracture Right foot pain Sacral decu
--- NOTE | 2023-05-21 13:02 | PM.IMPN ---
Progress Note: A&P Assessment and Plan (1) Acute dyspnea: Code(s): R06.00 - Dyspnea, unspecified Status: Acute Assessment and Plan: Clinically due to mucus plugging with possible pneumonia and COPD exacerbation (2) Acute hypercapnic respiratory failure: Code(s): J96.02 - Acute respiratory failure with hypercapnia Status: Acute Assessment and Plan: With a history of chronic hypercapnic respiratory failure Exacerbation likely due to mucous plugging with possible underlying pneumonia Continue trach care, pulmonary toilet, nocturnal ventilator, steroids, antibiotics (3) COPD (chronic obstructive pulmonary disease): Code(s): J44.9 - Chronic obstructive pulmonary disease, unspecified Status: Acute Assessment and Plan: With exacerbation likely due to mucus plugging, possible pneumonia Bronchodilators, steroids (4) Tracheostomy dependent: Code(s): Z93.0 - Tracheostomy status Status: Acute Assessment and Plan: Continue pulmonary toilet and trach care (5) Stenosis of trachea: Code(s): J39.8 - Other specified diseases of upper respiratory tract Status: Acute Assessment and Plan: Chronic, as above (6) Sacral decubitus ulcer, stage III: Code(s): L89.153 - Pressure ulcer of sacral region, stage 3 Status: Acute Assessment and Plan: Continue dressing changes (7) Abnormal chest xray: Code(s): R93.89 - Abnormal findings on diagnostic imaging of other specified body structures Status: Acute Assessment and Plan: Empiric ceftriaxone and azithromycin pending sputum cultures and clinical progress Procalcitonin is negative , wcc improved to 9 (8) Legally blind: Code(s): H54.8 - Legal blindness, as defined in [place] Status: Acute Subjective Date/time seen: 05/21/23 13:02 Interval history: 42-year-old gentleman with history of COPD and tracheal stenosis after endotracheal intubation jaiden a chronic tracheostomy.? He was discharged last month from [facility] and then [facility].? Pt still recovering some chest tightness today and wheeze Review of Systems Review of Systems: Wheezy lungs All systems reviewed & are unremarkable except as noted in HPI and below Exam Narrative: GENERAL: Middle-age male in no acute distress. SKIN: Large scar right scapular region. HEENT: Bilateral nystagmus, PERRL, sclerae nonicteric, pharyngeal mucosa pink and intact. NECK: No JVD, adenopathy, or thyromegaly. CHEST: Decreased breath sounds bilaterally with slight coarseness. Mild tachypnea. HEART: NL S1/S2, regular, no murmur. ABDOMEN: BS+, soft, nontender, no mass, no bruits. EXTREMITIES: No cyanosis, edema, or clubbing. NEUROLOGIC: CN intact and symmetric to inspection. MUSCULOSKELETAL: Tone and strength symmetric. PSYCH: Alert. Oriented to person, place, and time. Objective Data Vital Signs Vital Signs: Vital Signs - 24 hr 05/20/23 13:25 05/20/23 14:04 05/20/23 14:16 Temperature Pulse Rate 100 101 H Respiratory Rate 20 20 Blood Pressure Pulse Oximetry 95 Oxygen Delivery High Flow Therapy with Tr Oxygen Flow Rate 30 Fraction of Inspired Oxygen 05/20/23 14:00 05/20/23 19:27 05/20/23 19:28 Temperature 36.8 C Pulse Rate 95 85 Respiratory Rate 24 H 20 Blood Pressure 125/74 Pulse Oximetry 94 97 Oxygen Delivery High Flow Therapy with Tr Oxygen Flow Rate 30 Fraction of Inspired Oxygen 05/20/23 19:35 05/20/23 20:31 05/20/23 20:00 Temperature Pulse Rate 92 108 H 108 H Respiratory Rate 20 Blood Pressure Pulse Oximetry 97 Oxygen Delivery High Flow Therapy with Tr Oxygen Flow Rate 5 Fraction of Inspired Oxygen 05/20/23 22:00 05/21/23 01:34 05/21/23 01:34 Temperature 36.2 C L Pulse Rate 107 H 91 Respiratory Rate 22 H 20 Blood Pressure 130/72 Pulse Oximetry 95 96 Oxygen Deliver
[2023-05-22] VITALS (19 sets, daily range): BP systolic 116–144; BP diastolic 61–66; PULSE 63–92; RESP 16–20; TEMP 36.1–36.7; O2SAT 81–100
[2023-05-22] MEDS: LORazepam (*CRX) 0.5 MG TABLET PO ×2 (00:07→12:27)
[2023-05-22] MEDS: IPRATROPIUM 0.5 MG/ALBUTEROL SULFATE 2.5 MG AMPUL.NEB 3 ML INHALATION ×4 (01:38→19:46)
[2023-05-22] MEDS: DIVALPROEX SODIUM DR 250 MG TABEC PO ×3 (09:04→17:53)
[2023-05-22] MEDS: guaiFENesin 12 HR 600 MG TABCR PO ×2 (09:04→21:12)
[2023-05-22] MEDS: busPIRone HCL 10 MG TABLET PO ×3 (09:05→17:53)
[2023-05-22] MEDS: lisinopriL 5 MG TABLET PO (09:05)
[2023-05-22] MEDS: ESCITALOPRAM OXALATE 10 MG TABLET 20 MG PO (09:05)
[2023-05-22] MEDS: PANTOPRAZOLE 40 MG TABLET PO (09:05)
[2023-05-22] MEDS: THERAPEUTIC MULTIVITAMINS/MINERALS TAB (*BKC) 1 TABLET PO (09:05)
[2023-05-22] MEDS: DOXYCYCLINE HYCLATE 100 MG TABLET PO ×2 (09:05→21:11)
[2023-05-22] MEDS: APIXABAN 5 MG TABLET PO ×2 (09:05→21:11)
[2023-05-22] MEDS: METOPROLOL TARTRATE 50 MG TAB PO ×2 (09:07→21:11)
[2023-05-22] MEDS: predniSONE 20 MG TABLET 40 MG PO (09:11)
[2023-05-22] MEDS: CHLORHEXIDINE GLUCONATE 0.12% ORAL RINSE 473 ML BTL (*BKC) 15 ML SWISH/SPIT ×2 (09:11→17:53)
[2023-05-22 12:07] LABS: Folic Acid 7.6 ng/mL (2.76->20)
--- NOTE | 2023-05-22 12:35 | PCRCNOTE ---
Patient refused ABG at this time. RN informed of refusal.
--- NOTE | 2023-05-22 14:09 | PM.IMPN ---
Progress Note: A&P Assessment and Plan (1) Acute dyspnea: Code(s): R06.00 - Dyspnea, unspecified Status: Acute Assessment and Plan: Clinically due to mucus plugging with possible pneumonia and COPD exacerbation (2) Acute hypercapnic respiratory failure: Code(s): J96.02 - Acute respiratory failure with hypercapnia Status: Acute Assessment and Plan: With a history of chronic hypercapnic respiratory failure Exacerbation likely due to mucous plugging with possible underlying pneumonia Continue trach care, pulmonary toilet, nocturnal ventilator, steroids, antibiotics (3) COPD (chronic obstructive pulmonary disease): Code(s): J44.9 - Chronic obstructive pulmonary disease, unspecified Status: Acute Assessment and Plan: With exacerbation likely due to mucus plugging, possible pneumonia Bronchodilators, steroids (4) Tracheostomy dependent: Code(s): Z93.0 - Tracheostomy status Status: Acute Assessment and Plan: Continue pulmonary toilet and trach care (5) Stenosis of trachea: Code(s): J39.8 - Other specified diseases of upper respiratory tract Status: Acute Assessment and Plan: Chronic, as above (6) Sacral decubitus ulcer, stage III: Code(s): L89.153 - Pressure ulcer of sacral region, stage 3 Status: Acute Assessment and Plan: Continue dressing changes (7) Abnormal chest xray: Code(s): R93.89 - Abnormal findings on diagnostic imaging of other specified body structures Status: Acute Assessment and Plan: Empiric ceftriaxone and azithromycin pending sputum cultures and clinical progress Procalcitonin is negative , wcc improved to 9 (8) Legally blind: Code(s): H54.8 - Legal blindness, as defined in [place] Status: Acute Subjective Date/time seen: 05/22/23 14:09 Interval history: 42-year-old gentleman with history of COPD and tracheal stenosis after endotracheal intubation jaiden a chronic tracheostomy.? He was discharged last month from [facility] and then [facility].? Pt still recovering some chest tightness today and wheeze Review of Systems Review of Systems: Wheezy lungs All systems reviewed & are unremarkable except as noted in HPI and below Exam Narrative: GENERAL: Middle-age male in no acute distress. SKIN: Large scar right scapular region. HEENT: Bilateral nystagmus, PERRL, sclerae nonicteric, pharyngeal mucosa pink and intact. NECK: No JVD, adenopathy, or thyromegaly. CHEST: Decreased breath sounds bilaterally with slight coarseness. Mild tachypnea. HEART: NL S1/S2, regular, no murmur. ABDOMEN: BS+, soft, nontender, no mass, no bruits. EXTREMITIES: No cyanosis, edema, or clubbing. NEUROLOGIC: CN intact and symmetric to inspection. MUSCULOSKELETAL: Tone and strength symmetric. PSYCH: Alert. Oriented to person, place, and time. Objective Data Vital Signs Vital Signs: Vital Signs - 24 hr 05/21/23 19:43 05/21/23 19:48 05/21/23 20:49 Temperature Pulse Rate 78 88 Respiratory Rate 20 Blood Pressure Pulse Oximetry 94 Oxygen Delivery High Flow Therapy with Tr Oxygen Flow Rate 30 Fraction of Inspired Oxygen 05/21/23 22:00 05/22/23 01:41 05/21/23 19:50 Temperature 97.7 F Pulse Rate 77 77 76 Respiratory Rate 18 20 20 Blood Pressure 128/78 Pulse Oximetry 100 Oxygen Delivery Oxygen Flow Rate Fraction of Inspired Oxygen 05/21/23 20:00 05/22/23 06:00 05/22/23 08:16 Temperature 97.7 F Pulse Rate 63 74 Respiratory Rate 18 20 Blood Pressure 130/66 Pulse Oximetry 97 98 Oxygen Delivery High Flow Therapy with Tr Oxygen Flow Rate 5 Fraction of Inspired Oxygen 05/22/23 08:18 05/22/23 08:26 05/22/23 09:07 Temperature Pulse Rate 74 68 72 Respiratory Rate 20 20 Blood Pressure Pulse Oximetry 98 Oxygen Delivery High Flow Therapy with Tr Oxygen Flow Rate 3
--- NOTE | 2023-05-22 14:53 | HOMEO2EVAL ---
Evaluation was performed at [facility] Home Oxygen Evaluation RC: Home Oxygen (O2) Evaluation Start: 05/22/23 10:23 Freq: ONCE Status: Active Protocol: RPE Activity Type Activity Date Activity User E-sign Co-sign Detail Recorded Client Recorded Date Recorded By Document 05/22/23 14:39 [email or web address] [id number] 05/22/23 14:53 KRM Document 05/22/23 14:40 [email or web address] [email or web address] 05/22/23 14:53 KRM Document 05/22/23 14:42 [email or web address] [email or web address] 05/22/23 14:53 KRM Document 05/22/23 14:44 [email or web address] [email or web address] 05/22/23 14:53 KRM 05/22/23 05/22/23 05/22/23 14:39 14:40 14:42 Home O2 Evaluation [Oxygen] -Test Phase Resting Exercise Exercise -Oxygen Delivery Room Air Room Air Nasal Cannula -Oxygen Flow Rate (L/min) 2 [Pulse Oximetry] -Pulse Oximetry (90-100 %) 93 81 L 84 L [Pulse Rate] -Pulse Rate (60-100 beats/min) 77 92 91 [Evaluation] -Activity Tolerance Good Good [Exercise] -Ambulation Distance (feet) -Ambulation Distance (meters) [Comments] -Home Oxygen Evaluation Comments [Charges] -Evaluation Charges 05/22/23 14:44 Home O2 Evaluation [Oxygen] -Test Phase Exercise -Oxygen Delivery Nasal Cannula -Oxygen Flow Rate (L/min) 3 [Pulse Oximetry] -Pulse Oximetry (90-100 %) 91 [Pulse Rate] -Pulse Rate (60-100 beats/min) 91 [Evaluation] -Activity Tolerance Good [Exercise] -Ambulation Distance (feet) 25 -Ambulation Distance (meters) 7.61 [Comments] -Home Oxygen Evaluation Comments 3LPM WITH ACTIVITY [Charges] -Evaluation Charges O2 Evaluation by Pulmonary
--- NOTE | 2023-05-22 14:56 | PCRCNOTE ---
HOME O2 EVALUATION COMPLETED. PT. CAN TOLERATE ROOM AIR AT REST, REQUIRES 3LPM O2 WITH ACTIVITY. PT. HAS OXYGEN WITH MED RESOURCES IN [place] [phone]. PT. HAS O2, HUMIDITY AND SUCTION AT HOME. FAXED UPDATED ORDER TO DME.
--- NOTE | 2023-05-22 14:57 | PM.PNPUL ---
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 He arrived with a one-day history of deteriorating breathlessness. Upon examination, it was found that the patient had thick bronchial secretions that could not be cleared through the tracheostomy. However, his respiratory condition significantly improved after suctioning in the emergency room. The patient's respiratory status has remained stable over the past 24 hours. He continues to self-aspirate tracheal secretions. Antibiotics have been administered for a potential lower respiratory tract infection. However, sputum cultures to date do not suggest a lower respiratory tract infection. The plan is to continue with the current antibiotic regimen and nebulized short-acting bronchodilators. Oral steroids have been discontinued. The patient's chronic hypercapnia is likely related to obesity hypoventilation, for which he has been receiving home ventilatory support. It is anticipated that the patient will be discharged home in the morning. 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 Overall feels better. Stated that his tracheal secretions have increased over the last 12 hours. He has no shortness of breath fever or chills. Review of Systems Review of Systems: All systems reviewed & are unremarkable except as noted in HPI and below (HPI and below) Exam Narrative: GENERAL APPEARANCE: Well developed, well nourished, alert and cooperative, morbidly obese and appears to be in no acute distress SKIN: Inspection of the skin reveals no rashes, ulcerations or petechiae. HEENT: Sclerae anicteric and conjunctivae pink and moist. Extraocular movements were intact and pupils were equal, round, and reactive to light. The oral mucosa, hard and soft palate, tongue and posterior pharynx were normal. NECK: Supple. There was no thyroid enlargement, and no tenderness, or masses were felt. Tracheostomy in place stoma looks clean LUNGS: Auscultation of the lungs revealed normal breath sounds without any other adventitious sounds or rubs. CARDIAC: There was a regular rate and rhythm without any murmurs, gallops, rubs. ABDOMEN: Soft and nontender with normal bowel sounds. There was no organomegaly. LYMPH NODES: No lymphadenopathy was appreciated in the neck. EXTREMITIES: No cyanosis, clubbing or edema. NEUROLOGIC: Alert and oriented x 3. Normal affect. Objective Data Vital Signs Vital Signs: Vital Signs - 24 hr 05/21/23 19:43 05/21/23 19:48 05/21/23 20:49 Temperature Pulse Rate 78 88 Respiratory Rate 20 Blood Pressure Pulse Oximetry 94 Oxygen Delivery High Flow Therapy with Tr Oxygen Flow Rate 30 Fraction of Inspired Oxygen 05/21/23 22:00 05/22/23 01:41 05/21/23 19:50 Temperature 36.5 C Pulse Rate 77 77 76 Respiratory Rate 18 20 20 Blood Pressure 128/78 Pulse Oximetry 100 Oxygen Delivery Oxygen Flow Rate Fraction of Inspired Oxygen 05/21/23 20:00 05/22/23 06:00 05/22/23 08:16 Temperature 36.5 C Pulse Rate 63 74 Respiratory Rate 18 20 Blood Pressure 130/66 Pulse Oximetry 97 98 Oxygen Deliv
[2023-05-23] VITALS (11 sets, daily range): BP systolic 134–138; BP diastolic 63–84; PULSE 68–88; RESP 20; TEMP 35.6–36.7; O2SAT 92–99
[2023-05-23] MEDS: IPRATROPIUM 0.5 MG/ALBUTEROL SULFATE 2.5 MG AMPUL.NEB 3 ML INHALATION ×3 (01:49→14:17)
[2023-05-23 05:02] LABS: Alveolar/Arterial O2 Gradient 28.1 mmHg; Base Excess ABG 8.4 mEq/l (+/-2.0); Carboxyhemoglobin 0.2 % THb (0-2.0); Fractional Inspired Oxygen 30 %; HCO3 ABG 35.4 mEq/l (22.0-26.0); Methemoglobin ABG 0.3 %THb (0-1.5); Oxygen Content ABG 15.2 %vol (16.0-22.0); Oxygen Saturation ABG 97.9 % (95.0-100.0); Oxyhemoglobin 96.8 % THb (90.0-100.0); PO2 ABG 112.7 mmHg (80.0-100.0); PO2 FiO2 Ratio Arterial Blood 3.76 %; Reduced Hemoglobin 2.7 %THb (0-5.0); pH ABG 7.373 (7.350-7.450)
[2023-05-23 05:04] LABS: Device HIGH FLOW THERAPY; Modified Allen's Test Pass; PCO2 ABG 62.2 mmHg (35.0-45.0); Site Drawn RIGHT RADIAL
[2023-05-23 06:38] LABS: Basophils Percent Auto 0.4 % (0.2-1.2); Eosinophils Absolute Auto 0.1 K/mm3 (0-0.3); Eosinophils Percent Auto 0.6 % (0-4.4); Hematocrit 33.3 % (42.0-52.0); Immature Granulocyte Absolute 0.03 K/mm3 (0.00-0.031); Immature Granulocyte Percent A 0.4 % (0-0.5); Lymphocytes Absolute Auto 2.17 K/mm3 (0.9-3.2); Lymphocytes Percent Auto 27.4 % (18.3-44.2); Mean Corpuscular Hemoglobin 30.1 pg (26-34); Mean Corpuscular Volume 100.3 fl (80-100); Mean Platelet Volume 10.6 fl (7.4-10.4); Monocytes Absolute Auto 0.6 K/mm3 (0.1-0.6); Monocytes Percent Auto 7.7 % (2.6-8.5); Neutrophils Percent Auto 63.5 % (45.5-73.1); Platelet Count Result 220 k/mm3 (150-375); Red Blood Count 3.32 M/mm3 (4.6-6.20); Red Cell Distribution Width 12.8 % (11.5-14.5); White Blood Count 7.9 K/mm3 (4.5-10.0)
[2023-05-23 06:53] LABS: Alanine Aminotransferase 16 U/L (6-50); Albumin Level 3.3 g/dL (3.5-5.1); Alkaline Phosphatase 57 U/L (38-126); Anion Gap -1 mmol/L (8-16); Aspartate Amino Transferase 16 U/L (17-59); Bilirubin,Total 0.2 mg/dL (0.2-1.3); Blood Urea Nitrogen 22 mg/dL (9-20); Calcium 8.8 mg/dL (8.4-10.2); Carbon Dioxide 38 mmol/L (22-30); Chloride 103 mmol/L (98-107); Estimated CRCL calculation 213 ml/min; Estimated Glomerular Filt Rate > 60; Glucose 118 mg/dL (65-110); Potassium 3.9 mmol/L (3.4-5.0); Sodium 140 mmol/L (137-145)
--- NOTE | 2023-05-23 09:04 | PM.PNPUL ---
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 He arrived with a one-day history of deteriorating breathlessness. Upon examination, it was found that the patient had thick bronchial secretions that could not be cleared through the tracheostomy. However, his respiratory condition significantly improved after suctioning in the emergency room. The patient's respiratory status has remained stable over the past 48 hours. He continues to self-aspirate tracheal secretions. Antibiotics have been administered for a potential lower respiratory tract infection. However, sputum cultures to date do not suggest a lower respiratory tract infection. Plan: Okay to discharge patient home today. The patient will continue with his regular pulmonary toilet treatment at home, nebulized short-acting bronchodilators and home ventilator at night. I would suggest continuing doxycycline for another 5 days. Patient has an appointment to see his doctor at [facility] in approximately 5 weeks from today. Will sign off please call with any questions. 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 Tracheal secretions less over the last day. No fever chills. Self aspirating secretions. Review of Systems Review of Systems: All systems reviewed & are unremarkable except as noted in HPI and below (HPI and below) Exam Narrative: GENERAL APPEARANCE: Well developed, well nourished, alert and cooperative, morbidly obese and appears to be in no acute distress SKIN: Inspection of the skin reveals no rashes, ulcerations or petechiae. HEENT: Sclerae anicteric and conjunctivae pink and moist. Extraocular movements were intact and pupils were equal, round, and reactive to light. The oral mucosa, hard and soft palate, tongue and posterior pharynx were normal. NECK: Supple. There was no thyroid enlargement, and no tenderness, or masses were felt. Tracheostomy in place stoma looks clean LUNGS: Auscultation of the lungs revealed normal breath sounds without any other adventitious sounds or rubs. CARDIAC: There was a regular rate and rhythm without any murmurs, gallops, rubs. ABDOMEN: Soft and nontender with normal bowel sounds. There was no organomegaly. LYMPH NODES: No lymphadenopathy was appreciated in the neck. EXTREMITIES: No cyanosis, clubbing or edema. NEUROLOGIC: Alert and oriented x 3. Normal affect. Objective Data Vital Signs Vital Signs: Vital Signs - 24 hr 05/22/23 09:07 05/22/23 09:05 05/22/23 09:05 Temperature Pulse Rate 72 72 Respiratory Rate Blood Pressure 144/66 H Pulse Oximetry 98 98 Oxygen Delivery High Flow Therapy with Tr Oxygen Flow Rate 30 Fraction of Inspired Oxygen 05/22/23 13:04 05/22/23 13:20 05/22/23 14:00 Temperature 36.1 C L Pulse Rate 74 70 74 Respiratory Rate 20 20 16 Blood Pressure 116/65 Pulse Oximetry 100 Oxygen Delivery Oxygen Flow Rate Fraction of Inspired Oxygen 05/22/23 14:39 05/22/23 14:40 05/22/23 14:42 Temperature Pulse Rate 77 92 91 Respiratory Rate Blood Pressure Pulse Oximetry 93 81 L 84 L Oxygen Del
[2023-05-23] MEDS: ESCITALOPRAM OXALATE 10 MG TABLET 20 MG PO (09:18)
[2023-05-23] MEDS: DOXYCYCLINE HYCLATE 100 MG TABLET PO (09:18)
[2023-05-23] MEDS: CHLORHEXIDINE GLUCONATE 0.12% ORAL RINSE 473 ML BTL (*BKC) 15 ML SWISH/SPIT (09:18)
[2023-05-23] MEDS: PANTOPRAZOLE 40 MG TABLET PO (09:18)
[2023-05-23] MEDS: APIXABAN 5 MG TABLET PO (09:18)
[2023-05-23] MEDS: busPIRone HCL 10 MG TABLET PO ×2 (09:18→12:11)
[2023-05-23] MEDS: METOPROLOL TARTRATE 50 MG TAB PO (09:18)
[2023-05-23] MEDS: THERAPEUTIC MULTIVITAMINS/MINERALS TAB (*BKC) 1 TABLET PO (09:18)
[2023-05-23] MEDS: guaiFENesin 12 HR 600 MG TABCR PO (09:19)
[2023-05-23] MEDS: DIVALPROEX SODIUM DR 250 MG TABEC PO ×2 (09:19→12:14)
[2023-05-23] MEDS: lisinopriL 5 MG TABLET PO (09:20)
--- NOTE | 2023-05-23 10:54 | HOMEO2EVAL ---
Evaluation was performed at [facility] Home Oxygen Evaluation RC: Home Oxygen (O2) Evaluation Start: 05/22/23 10:23 Freq: ONCE Status: Active Protocol: RPE Activity Type Activity Date Activity User E-sign Co-sign Detail Recorded Client Recorded Date Recorded By Document 05/22/23 14:39 KRM [email or web address] 05/22/23 14:53 KRM Document 05/22/23 14:40 KRM [email or web address] 05/22/23 14:53 KRM Document 05/22/23 14:42 KRM [email or web address] 05/22/23 14:53 KRM Document 05/22/23 14:44 KRM [email or web address] 05/22/23 14:53 KRM 05/22/23 05/22/23 05/22/23 14:39 14:40 14:42 Home O2 Evaluation [Oxygen] -Test Phase Resting Exercise Exercise -Oxygen Delivery Room Air Room Air Trach Collar [Pulse Oximetry] -Pulse Oximetry (90-100 %) 93 81 L 84 L [Pulse Rate] -Pulse Rate (60-100 beats/min) 77 92 91 [Evaluation] -Activity Tolerance Good Good [Exercise] -Ambulation Distance (feet) -Ambulation Distance (meters) [Comments] -Home Oxygen Evaluation Comments [Charges] -Evaluation Charges 05/22/23 14:44 Home O2 Evaluation [Oxygen] -Test Phase Exercise -Oxygen Delivery Trach Collar [Pulse Oximetry] -Pulse Oximetry (90-100 %) 91 [Pulse Rate] -Pulse Rate (60-100 beats/min) 91 [Evaluation] -Activity Tolerance Good [Exercise] -Ambulation Distance (feet) 25 -Ambulation Distance (meters) 7.61 [Comments] -Home Oxygen Evaluation Comments 3LPM WITH ACTIVITY [Charges] -Evaluation Charges O2 Evaluation by Pulmonary
--- NOTE | 2023-05-23 12:05 | PM.DS ---
DS: Admitting Diagnosis Discharge Date 05/23/23 Admitting Diagnosis SOB DS: Discharge Diagnosis Discharge Diagnosis (1) Chronic hypercapnic respiratory failure: Code(s): J96.12 - Chronic respiratory failure with hypercapnia Status: Acute DS: Summary Hospital Course Hospital Course: 42-year-old gentleman with history of COPD and tracheal stenosis after endotracheal intubation jaiden a chronic tracheostomy.? He was discharged last month from [facility] and then [facility].? He was feeling great until about 2 days prior to admission.? At that point he began having increased dyspnea on exertion simply walking from his bed to the bathroom.? Also noted increased cough with inability to produce sputum.? Chills.? Sweats.? Fatigue.? Did not check his temperature.? 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 unable to breathe.? He was able to a set up move about in breathe better.? When he awakened at 2:00 a.m. he was unable to resolve the issue.? He called EMS and was brought to the emergency department.? After suctioning large amounts of thick material from his trachea he was feeling much better. For the past week he has had issues with his humidity for his tracheostomy.? He is on his 3rd machine this week.? He utilizes a ventilator at night while sleeping.? There is no moisture with the ventilator. CXR showed mild pulm edema, pulm was consulted and patient was put on pulm toileting and bronchodilators with Rocephina and Doxycycline. His symptoms has now resolved to baseline. Discharged on home bronchodilators, pulm toileting and 5 days more of Doxycycline per pulmonology. ALso discharged on 1 week of lasix given pulm edema,patient will continue f/u with PCP and Pulm at [facility] as scheduled. Assessment and Plan (1) Acute dyspnea: ?Code(s): R06.00 - Dyspnea, unspecified ?Status:?Acute ?Assessment and Plan: Clinically due to mucus plugging with possible pneumonia and COPD exacerbation(2) Acute hypercapnic respiratory failure: ?Code(s): J96.02 - Acute respiratory failure with hypercapnia ?Status:?Acute ?Assessment and Plan: With a history of chronic hypercapnic respiratory failure Exacerbation likely due to mucous plugging with possible underlying pneumonia Continue trach care, pulmonary toilet, nocturnal ventilator, steroids, antibiotics(3) COPD (chronic obstructive pulmonary disease): ?Code(s): J44.9 - Chronic obstructive pulmonary disease, unspecified ?Status:?Acute ?Assessment and Plan: With exacerbation likely due to mucus plugging, possible pneumonia Bronchodilators, steroids(4) Tracheostomy dependent: ?Code(s): Z93.0 - Tracheostomy status ?Status:?Acute ?Assessment and Plan: Continue pulmonary toilet and trach care(5) Stenosis of trachea: ?Code(s): J39.8 - Other specified diseases of upper respiratory tract ?Status:?Acute ?Assessment and Plan: Chronic, as above(6) Sacral decubitus ulcer, stage III: ?Code(s): L89.153 - Pressure ulcer of sacral region, stage 3 ?Status:?Acute ?Assessment and Plan: Continue dressing changes(7) Abnormal chest xray: ?Code(s): R93.89 - Abnormal findings on diagnostic imaging of other specified body structures ?Status:?Acute ?Assessment and Plan: Empiric ceftriaxone and azithromycin pending sputum cultures and clinical progress Procalcitonin is negative , wcc improved to 9(8) Legally blind: ?Code(s): H54.8 - Legal blindness, as defined in [place] ?Status:?Acute Time Spent with Patient Time attestation: Total time spent providing and/or coordinating discharge services: DS: Data Data Completed and Pending Labs on day of discharge: Labs from last 24 hours 05/23/23 05/23/23 05/22/23 05:37 04:56 10:31 WBC 7.9 RBC 3.32 L Hgb 10.0 L Hct 33.3 L MCV 100.3 H MCH 30.1 MCHC 30.0 L RDW 12.8 Plt Count 220 MPV 10.
[2023-05-23] MEDS: LORazepam (*CRX) 0.5 MG TABLET PO (12:14)
== END 2023-05-23 15:15 | disposition home health service (06) ==
LOC: ANHED 05:35 → ANH3MEDSUR 07:17
PROVIDERS: Internal Medicine; Admitting Provider Internal Medicine; Emergency Provider Emergency Medicine; PCP Internal Medicine; Visit Provider Internal Medicine
DX: J96.12 Chronic respiratory failure with hypercapnia (principal); Z99.81 Dependence on supplemental oxygen; Z99.11 Dependence on respirator [ventilator] status; J44.9 Chronic obstructive pulmonary disease, unspecified; Z93.0 Tracheostomy status; J39.8 Other specified diseases of upper respiratory tract; J38.6 Stenosis of larynx; L89.153 Pressure ulcer of sacral region, stage 3; H54.8 Legal blindness, as defined in USA; J81.1 Chronic pulmonary edema; I51.7 Cardiomegaly; E66.01 Morbid (severe) obesity due to excess calories; Z68.38 Body mass index [BMI] 38.0-38.9, adult; Z20.822 Contact with and (suspected) exposure to COVID-19; Z87.891 Personal history of nicotine dependence; Z79.51 Long term (current) use of inhaled steroids; Z79.01 Long term (current) use of anticoagulants; Z79.899 Other long term (current) drug therapy
CPT/HCPCS: 36415; 36600; 71045; 80053; 82375; 82607; 82746; 82805; 83050; 83605; 83735; 84145; 85025; 85610; 85730; 87070; 87205; 87637; 94618; 94640; 96365; 96366; 96367; 99285; A4629; A4248; A9270; G0378; J0456; J0696; J7512

== ENCOUNTER 2023-10-16 13:30 | Outpatient (RCR) | payer MEDICARE, OTHER, MEDICAID, SELFPAY ==
[2023-06-19 15:40] VITALS: BP 140/82; PULSE 72; RESP 18; O2SAT 99
[2023-06-19 15:59] VITALS: PULSE 72
== END 2023-10-16 23:59 | disposition home or self-care (01) ==
LOC: ANHCPREHAB 13:30
PROVIDERS: PCP Internal Medicine; Visit Provider Internal Medicine
DX: J39.8 Other specified diseases of upper respiratory tract (principal); J96.10 Chronic respiratory failure, unspecified whether with hypoxia or hypercapnia
CPT/HCPCS: 94625; G0239

== ENCOUNTER 2023-10-23 13:30 | Outpatient (RCR) | payer MEDICARE, MEDICAID, SELFPAY ==
[2023-10-18 00:09] VITALS: BP 140/82; PULSE 72; RESP 18; O2SAT 99
== END 2023-10-26 15:40 | disposition home or self-care (01) ==
LOC: ANHCPREHAB 13:30
PROVIDERS: PCP Internal Medicine; Visit Provider Internal Medicine
DX: J39.8 Other specified diseases of upper respiratory tract (principal); J96.10 Chronic respiratory failure, unspecified whether with hypoxia or hypercapnia
CPT/HCPCS: G0239

== ENCOUNTER 2023-11-24 17:21 | Emergency (ER) | payer MEDICARE, SELFPAY ==
--- NOTE | ~2023-11-24 | XR_ITS ---
EXAMINATION: XR chest 1V portable DATE: 11/24/2023 17:57 INDICATION: Tracheostomy replacement. TECHNIQUE: A single frontal view of the chest was obtained. COMPARISON: Chest single view 05/20/2023 FINDINGS: There are airspace opacities in the lower lung zones. No pleural effusion or pneumothorax. The heart size is normal. Median sternotomy wires are noted. There is a tracheostomy tube in expected position. IMPRESSION: 1. Airspace opacities in the lower lung zones, consistent with atelectasis versus pneumonia. Reviewed, dictated and finalized at location E. IMPRESSION: 1. Airspace opacities in the lower lung zones, consistent with atelectasis vers us pneumonia.
[2023-11-24 17:25] VITALS: BP 170/129; PULSE 84; RESP 28; TEMP 36.6; O2SAT 100
[2023-11-24] MEDS: IPRATROPIUM 0.5 MG/ALBUTEROL SULFATE 2.5 MG AMPUL.NEB 3 ML (17:56)
[2023-11-24 17:57] VITALS: PULSE 87; RESP 20
--- NOTE | 2023-11-24 17:57 | PC.NURSE ---
pt received a total of etomidate 30mg, (10 mg x3) Solumedrol 125mg Mag 2G Rocuronium 100mg x1 LR 1l bolus
[2023-11-24 17:59] VITALS: BP 99/56; PULSE 85; PULSE 86; RESP 20; RESP 21; TEMP 36.2; O2SAT 100
[2023-11-24 18:00] VITALS: PULSE 83; PULSE 84; RESP 16; O2SAT 100
--- NOTE | 2023-11-24 18:00 | PC.NURSE ---
bag of Fentanyl received from Pharmacy, drug to be started by Flight crew (Arch)
[2023-11-24 18:02] VITALS: BP 163/94; PULSE 86; RESP 20; O2SAT 100
[2023-11-24 18:11] LABS: Alveolar/Arterial O2 Gradient 418.3 mmHg; Base Excess ABG 17.1 mEq/l (+/-2.0); Carboxyhemoglobin 0.3 % THb (0-2.0); Fractional Inspired Oxygen 100 %; HCO3 ABG 44.3 mEq/l (22.0-26.0); Methemoglobin ABG 0.1 %THb (0-1.5); Oxygen Content ABG 14.9 %vol (16.0-22.0); Oxygen Saturation ABG 99.5 % (95.0-100.0); Oxyhemoglobin 99.1 % THb (90.0-100.0); PO2 FiO2 Ratio Arterial Blood 2.25 %; Reduced Hemoglobin 0.5 %THb (0-5.0); Total Hemoglobin 10.3 g/dL (12.0-18.0); pH ABG 7.421 (7.350-7.450)
[2023-11-24 18:14] LABS: Device VENTILATOR; PCO2 ABG 69.7 mmHg (35.0-45.0); Site Drawn RIGHT BRACHIAL
[2023-11-24 18:15] LABS: Arterial Blood Gas PEEP 5 cmH2O; Arterial Blood Gas Tidal Volume 520 ml; Arterial Blood Gas Vent Mode ASSIST CONTROL; Arterial Blood Gas Ventilator rate 20 /MIN
[2023-11-24 18:19] VITALS: PULSE 89; O2SAT 100
--- NOTE | 2023-11-24 20:41 | ED.SOB ---
HPI - SOB/Dyspnea General Chief Complaint: Shortness of Breath/Dyspnea Stated Complaint: trach obstruction? 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 Patient presents in respiratory extremis via EMS for concerns of airway obstruction. According to the patient he accidentally dislodged his tracheostomy and thinks he pushed down his inner cannula into his airway further. He presents via EMS after they had to initiate [id number] ventilations to his tracheostomy site in addition to supplemental oxygen through non-rebreather. Patient was only saturating in the 50% and was very cyanotic in appearance. He presents as a medical resuscitation at this time for concerns of airway obstruction requiring intervention. On documentation review and EMR review patient has a 6 uncuffed Shiley at home which is not present during initial presentation. There is bleeding from the stoma site that is appearing to be controlled without any active hemorrhage. Unable to visualize any retained foreign body in the stoma however likely is deep within the airway given patient's history of pushing it down accidentally. No outer cannula was found. Patient is in respiratory extremis and brought back to a room for resuscitation efforts. Related Data Home Medications Medication Instructions Recorded Confirmed guaifenesin 600 mg tablet, 600 mg PO Q12H 03/17/23 10/15/23 extended release 12 hr (Mucinex) multivitamin with minerals-folic 1 tablet PO DAILY 03/17/23 10/15/23 acid 0.4 mg tablet Allergies Allergy/AdvReac Type Severity Reaction Status Date / Time codeine Allergy Unknown Unknown Verified 10/15/23 13:25 Review of Systems Review of Systems: Unable to obtain secondary to patient's level of distress ON LICENSE OF [facility] Past Medical History Medical History Chronic anticoagulation COPD (chronic obstructive pulmonary disease) Decubitus ulcer of right leg, stage 3 Legally blind Metatarsal bone fracture Right foot pain Sacral decubitus ulcer, stage III Sacral decubitus ulcer, stage IV 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 Former smoker. Quit about 1 year ago. Former drinker. Quit about 1 year ago. Former use of cannabis. Quit about 1 year ago. Former use of hallucinogenic mushrooms. Quit about 5 years ago. . Resides with mother and stepfather. Smoking packs per day: 1 Smoking cigarettes per day: 20.0 Years smoked: 20 Smoking pack-years: 20.00 Smoking status: Former smoker Tobacco type: cigarettes Second hand tobacco smoke exposure: No Smoking end date: 05/31/22 Alcohol intake: former Drinks per week: 1 Substance use: former Substance use type: hallucinogens Do You Feel Safe in your Home?: Yes Lack of Transportation: No Lack of Food: Never True Current Housing: I Have Housing Concerned About Future Housing: No Difficulty Paying Gas/Electric Bills: No Difficulty Paying for Meds: No Currently Unemployed: No Education: High School Diploma/GED Difficulty w/ Childcare or Family Care: No Living arrangements: with family Occupation/Education: other Additional occupation/education comments: disabled Gender identity (if verbalized by the patient): Male Sexual Orientation (i
== END 2023-11-24 18:45 | disposition short-term general hospital (02) ==
PROVIDERS: Emergency Provider Student in an Organized Health Care Education/Training Program; PCP Internal Medicine
DX: J95.03 Malfunction of tracheostomy stoma (principal); J95.01 Hemorrhage from tracheostomy stoma; J98.8 Other specified respiratory disorders; J38.6 Stenosis of larynx; J39.8 Other specified diseases of upper respiratory tract; J44.9 Chronic obstructive pulmonary disease, unspecified; H54.8 Legal blindness, as defined in USA; Z87.891 Personal history of nicotine dependence; Z79.01 Long term (current) use of anticoagulants; Z79.899 Other long term (current) drug therapy
CPT/HCPCS: 31500; 31502; 31899; 36600; 71045; 82375; 82805; 83050; 94640; 96365; 96367; 96375; 99285; J0330; J2919; J3010; J3475; J7120

== ENCOUNTER 2023-12-05 15:02 | Inpatient (IN) | payer MEDICARE, SELFPAY ==
[2023-12-05] VITALS (13 sets, daily range): BP systolic 110–151; BP diastolic 56–105; PULSE 74–91; RESP 16–20; TEMP 35.7–36.6; O2SAT 97–100; BMI 42.3
--- NOTE | ~2023-12-05 | XR_ITS ---
EXAMINATION: XR chest 1V portable DATE: 12/05/2023 18:06 INDICATION: Cough. TECHNIQUE: frontal view of the chest was obtained. COMPARISON: Chest radiograph dated 11/24/2023 FINDINGS: Tracheostomy tube in expected position at the thoracic inlet. Pulmonary vascular congestion. Airspace and interstitial opacities with bronchial wall thickening in the right mid and bilateral lower lung zones. Heart size within normal limits for AP technique. Median sternotomy wires are present. IMPRESSION: 1. Airspace and interstitial opacities with bronchial wall thickening in the right mid and bilateral lower lung zones which could represent pneumonia or mild pulmonary edema. Reviewed, dictated and finalized at location A. IMPRESSION: 1. Airspace and interstitial opacities with bronchial wall thickening in the ri ght mid and bilateral lower lung zones which could represent pneumonia or mild pulmonary edema.
--- NOTE | ~2023-12-05 | XR_ITS ---
EXAMINATION: XR chest 1V portable DATE: 12/07/2023 05:42 INDICATION: Pneumonia. TECHNIQUE: A single frontal view of the chest was obtained. COMPARISON: Chest single view 12/05/2023, chest CT 09/28/2022 FINDINGS: There are mild airspace opacities in right perihilar region. No pleural effusion or pneumot horax. Cardiomegaly is noted. Median sternotomy wires are noted. There is a tracheostomy tube in expe cted position. IMPRESSION: 1. Mild airspace opacities in right perihilar region, consistent with atelectasis versus pneumonia. 2. Cardiomegaly. Reviewed, dictated and finalized at location A. IMPRESSION: 1. Mild airspace opacities in right perihilar region, consistent with atelectas is versus pneumonia. 2. Cardiomegaly.
--- NOTE | 2023-12-05 17:56 | ECG_ITS ---
Test Date: 2023-12-05 19:09:16 Measurements Intervals Slater Rate: 81 P: 69 WV: 144 QRS: 17 QRSD: 94 T: 64 QT: 370 QTc: 430 Interpretive Statements SINUS RHYTHM No previous ECG available for comparison Electronically Signed On 12-06-2023 14:39:16 CDT by Evangelina Cantrell M.D.
--- NOTE | 2023-12-05 17:57 | ED.GENADULT ---
HPI - General Adult General Chief complaint: Unspecified Stated complaint: not feeling well since yesterday Time Seen by Provider: 12/05/23 17:25 History of Present Illness HPI narrative: Patient is a 43-year-old male with a history of tracheostomy due to subglottic stenosis presenting with an episode of nausea earlier. States that he was having some stomach pain and was nauseous so he became concerned and came in for evaluation. He states that this is actually all resolved and he is feeling much better. He currently denies any complaints. No chest pain or abdominal pain. States his breathing is at baseline. He is always on 6 L trach collar. No fevers, cough, leg swelling. Related Data Home Medications Medication Instructions Recorded Confirmed cyanocobalamin (vitamin B-12) 100 100 mcg PO DAILY 12/06/23 12/06/23 mcg tablet ferrous sulfate 325 mg (65 mg 325 mg PO DAILY 12/06/23 12/06/23 iron) tablet folic acid 1 mg tablet 1 mg PO DAILY 12/06/23 12/06/23 lisinopril 10 mg tablet 10 mg PO DAILY 12/06/23 12/06/23 pantoprazole 40 mg tablet,delayed 40 mg PO DAILY 12/06/23 12/06/23 release Allergies Allergy/AdvReac Type Severity Reaction Status Date / Time codeine Allergy Unknown Unknown Verified 10/15/23 13:25 Review of Systems Review of Systems: All systems reviewed & are unremarkable except as noted in HPI and below PMFSH Past Medical History Medical History Chronic anticoagulation COPD (chronic obstructive pulmonary disease) Decubitus ulcer of right leg, stage 3 Legally blind Metatarsal bone fracture Right foot pain Sacral decubitus ulcer, stage III Sacral decubitus ulcer, stage IV 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 Former smoker. Quit about 1 year ago. Former drinker. Quit about 1 year ago. Former use of cannabis. Quit about 1 year ago. Former use of hallucinogenic mushrooms. Quit about 5 years ago. . Resides with mother and stepfather. Smoking packs per day: 1 Smoking cigarettes per day: 20.0 Years smoked: 20 Smoking pack-years: 20.00 Smoking status: Former smoker Second hand tobacco smoke exposure: No Alcohol intake: former Drinks per week: 1 Substance use: current Substance use type: marijuana Do You Feel Safe in your Home?: Yes Lack of Transportation: No Lack of Food: Never True Current Housing: I Have Housing Concerned About Future Housing: No Difficulty Paying Gas/Electric Bills: No Difficulty Paying for Meds: No Currently Unemployed: No Education: High School Diploma/GED Difficulty w/ Childcare or Family Care: No Living arrangements: with family Occupation/Education: other Additional occupation/education comments: disabled Gender identity (if verbalized by the patient): Male Sexual Orientation (if Verbalized by the Patient): Straight or Heterosexual Spiritual care concerns: No Exam Narrative: GENERAL: Nontoxic, no acute distress, pleasant cooperative HEAD: Normocephalic, atraumatic. EYES: PERRLA ENT: Mucous membranes moist. NECK: Supple. Tracheostomy in place with trach collar CHEST: Clear to auscultation. No respiratory distress. saturating 100% on baseline 6L HEART: Regular rate and rhythm ABDOMEN: Soft, nontender, nondistended EXTREMITIES: Normal range of motion SKIN: Warm, dry, no rash. ASHLIE
[2023-12-05 19:16] LABS: Basophils Percent Auto 0.2 % (0.2-1.2); Eosinophils Absolute Auto 0.1 K/mm3 (0-0.3); Eosinophils Percent Auto 0.5 % (0-4.4); Hematocrit 32.4 % (42.0-52.0); Hemoglobin 9.4 g/dL (14.0-18.0); Immature Granulocyte Absolute 0.06 K/mm3 (0.00-0.031); Immature Granulocyte Percent A 0.5 % (0-0.5); Lymphocytes Absolute Auto 1.25 K/mm3 (0.9-3.2); Lymphocytes Percent Auto 10.2 % (18.3-44.2); Mean Corpuscular Hemoglobin 30.5 pg (26-34); Mean Corpuscular Volume 105.2 fl (80-100); Mean Platelet Volume 9.7 fl (7.4-10.4); Monocytes Absolute Auto 0.7 K/mm3 (0.1-0.6); Neutrophils Absolute Auto 10.1 K/mm3 (1.3-6.7); Neutrophils Percent Auto 82.6 % (45.5-73.1); Platelet Count Result 229 k/mm3 (150-375); Red Blood Count 3.08 M/mm3 (4.6-6.20); Red Cell Distribution Width 12.8 % (11.5-14.5); White Blood Count 12.2 K/mm3 (4.5-10.0)
[2023-12-05 19:21] LABS: Add Urine Microscopic? YES; Appearance Urine Clear (Clear); Bacteria Urine None Seen /hpf; Bilirubin Urine Negative (Negative); Blood Urine Negative (Negative); Color Urine Yellow (Yellow); Glucose Urine UA Negative (Negative); Ketones Urine Trace mg/dL (Negative); Leukocyte Esterase Ur Negative LEU/UL (Negative); Nitrate Urine Negative (Negative); Non Pathogenic Casts 0-2; Protein Urine 2+ mg/dL (Negative); RBC Urine 0-2 /hpf (0-2); Specific Grav Ur 1.027 (1.001-1.035); Squamous Epithelial Cell Urine None Seen /hpf (Few); Urobilinogen Urine 0.2 mg/dL (<2.0); WBC Urine 0-5 /hpf (0-3)
[2023-12-05 19:22] LABS: Hypochromasia 1+; Ovalocytes 1+; Platelet Estimate Adequate (Adequate); Schistocytes None Seen
[2023-12-05 19:30] LABS: Alanine Aminotransferase 18 U/L (6-50); Albumin Level 4.1 g/dL (3.5-5.1); Alkaline Phosphatase 62 U/L (38-126); Aspartate Amino Transferase 18 U/L (17-59); Bilirubin,Total 0.2 mg/dL (0.2-1.3); Blood Urea Nitrogen 22 mg/dL (9-20); Calcium 8.9 mg/dL (8.4-10.2); Carbon Dioxide > 40 mmol/L (22-30); Chloride 90 mmol/L (98-107); Estimated Glomerular Filt Rate > 60; Glucose 97 mg/dL (65-110); Lipase 46 U/L (23-300); Potassium 4.3 mmol/L (3.4-5.0); Sodium 143 mmol/L (137-145)
[2023-12-05 19:37] LABS: Troponin I < 0.012 ng/mL (0.000-0.034)
[2023-12-05 19:52] LABS: Influenza A QL RT-PCR Negative (Negative); Influenza B QL RT-PCR Negative (Negative); RSV RNA, RT-PCR Negative (Negative); SARS-CoV-2 RNA PCR Negative (Negative)
[2023-12-05 20:42] LABS: Alveolar/Arterial O2 Gradient 34.2 mmHg; Carboxyhemoglobin 0.3 % THb (0-2.0); Fractional Inspired Oxygen 40 %; HCO3 ABG 49.1 mEq/l (22.0-26.0); Methemoglobin ABG 0.2 %THb (0-1.5); Oxygen Content ABG 14.1 %vol (16.0-22.0); Oxygen Saturation ABG 98.1 % (95.0-100.0); Oxyhemoglobin 98.2 % THb (90.0-100.0); PO2 ABG 133.9 mmHg (80.0-100.0); PO2 FiO2 Ratio Arterial Blood 3.35 %; Reduced Hemoglobin 1.3 %THb (0-5.0); pH ABG 7.301 (7.350-7.450)
[2023-12-05 20:44] LABS: Device OTHER DEVICE; Modified Allen's Test Pass; PCO2 ABG 101.8 mmHg (35.0-45.0); Site Drawn RIGHT RADIAL
[2023-12-05] MEDS: methylPREDNISolone SOD SUCC 125 MG VIAL IV PUSH (20:51)
[2023-12-05] MEDS: ALBUTEROL SULFATE NEB 2.5 MG/3 ML INH 10 MG INHALATION (20:52)
[2023-12-05] MEDS: IPRATROPIUM BR 0.02% INH SOLN 0.5 MG/2.5 ML VIAL INHALATION (20:52)
[2023-12-05] MEDS: cefTRIAXone 2 GM/NS 100 ML 2 GM/100 ML BAG IVPB (20:54)
--- NOTE | 2023-12-05 21:47 | PC.NURSE ---
Called ICU to give report and was told that the room asssignment has changed and new nurse will call back in 5 minutes after getting a chance to review chart.
[2023-12-05] MEDS: DOXYCYCLINE 100 MG/NS 100 ML 100 MG/100 ML BAG IVPB (21:56)
--- NOTE | 2023-12-05 22:30 | ADMGEN ---
This patient, Laith Chavez, was admitted to Intensive Care Unit-7. Patient/family oriented to hospital policies and general routines including ID bracelet, bed and alarms, visiting hours, pain management, procedures, bathroom and other care routines, personal items, smoking policy, room service/diet, and visiting hours. Information on how to activate the Rapid Response Team has been discussed. Patient/Family are encouraged to report perceived risks to care and to ask questions if they do not understand what they are told or what they should do.
--- NOTE | 2023-12-05 22:38 | PCRCNOTE ---
Patient was started on Vent after pt was transferred to ICU due to patient eating, MD aware.
--- NOTE | 2023-12-05 23:20 | PC.NURSE ---
attempted prescribed vent settings on a cuffless trach and machine constantly alarms because of trach leak. MD notified and ordered cuffless trach to be replaced with cuffed trach for ventilation to decrease CO2. Explained the treatment plan to the pt. Pt refuses to change to a cuffed trach because it is uncomfortable and that his family is bringing in his home unit. Rt at bedside to hear refusal.
[2023-12-06] VITALS (26 sets, daily range): BP systolic 104–153; BP diastolic 51–86; PULSE 67–95; RESP 12–26; TEMP 36.3–36.9; O2SAT 93–100
--- NOTE | 2023-12-06 | ECHO_ITS ---
Patient Info Name: Laith Chavez Age: 43 years : 1980 Gender: Male Ht: 69 in Wt: 286 lbs BSA: 2.57 m2 HR: 78 bpm BP: 122 / 86 mmHg Technical Quality: Fair Exam Date: 12/06/2023 1:21 PM Exam Location: Echo Lab Patient Status: Inpatient Admit Date: 12/05/2023 Staff Ordering Physician: Bob Aponte APRN Aws Solution Architect: Yamilet Morris RDCS Attending Provider: Milan Mcknight MD Referring Physician: Fadi BARKER; Exam Type: CA echo dop color flow w con Study Info Indications - PNA VS PULMONARY EDEMA Complete two-dimensional, color flow and Doppler transthoracic echocardiogram is performed with contrast to opacify the left ventricle and to improve the deliniation of the left ventricle endocardial borders. Contrast/Agitated Saline Contrast/Ag. Saline: Definity Amount: 2.00 ml Existing IV Access: Yes Summary 1. Definity contrast administered improved wall motion interpretation. 2. Left ventricular chamber dimension is mildly enlarged. 3. Left ventricular systolic function is normal, estimated at 60-65%. 4. The left ventricular diastolic function is abnormal. 5. E/e' 11 is mildly elevated. 6. Left atrial chamber dimension is mildly enlarged. 7. Right atrial chamber dimension is mildly enlarged. 8. There is mild aortic valve sclerosis. 9. There is trace mitral valve regurgitation. Left Ventricle E/e' 11 is mildly elevated. Definity contrast administered improved wall motion interpretation. Left ventricular chamber dimension is mildly enlarged. Left ventricular systolic function is normal, estimated at 60-65%. The left ventricular diastolic function is abnormal. Right Ventricle Right ventricular systolic function is normal and with normal TAPSE 2.4 cm. Right ventricular chamber dimension is normal. Left Atria Left atrial chamber dimension is mildly enlarged. Right Atria Right atrial chamber dimension is mildly enlarged. Aortic Valve The aortic valve is trileaflet. There is mild aortic valve sclerosis. There is no aortic valve stenosis. There is no aortic valve regurgitation. Pulmonic Valve There is no pulmonic regurgitation. Mitral Valve There is no mitral valve stenosis. There is trace mitral valve regurgitation. Tricuspid Valve There is no tricuspid valve regurgitation. Pericardium/Pleural There is no pericardial effusion. Inferior Vena Cava Normal inferior vena cava with >50% collapse upon inspiration consistent with normal right atrial pressure, 5 mmHg. Aorta The aortic root size at the sinus of Valsalva is normal. Left Ventricular Outflow Tract Name Value Normal LVOT 2D LVOT Diameter 2.12 cm LVOT Doppler LVOT Peak Gradient 11 mmHg LVOT Mean Gradient 5 mmHg LVOT VTI 29.33 cm LVOT VTI/AV VTI Ratio 0.89 LVOT Stroke Volume 103.75 ml LVOT CO 7.39 l/min LVOT CI 2.87 L/min/m2 Pulmonic Valve Name Value
--- NOTE | 2023-12-06 00:05 | PC.NURSE ---
home Bipap machine received from family member. Electrical safety chaeck performed by maintenance. Pt placed on home bipap 15/5 rate of 12 o2 bleed in of 5 lpm
--- NOTE | 2023-12-06 00:56 | PM.IMHP ---
H&P: HPI History of Present Illness Date/Time: 12/06/23 00:56 Chief Complaint: Acute on chronic respiratory failure, pneumonia Narrative: This is a 43-year-old male patient with a history of COPD, tracheal stenosis, chronic hypercapnic respiratory failure chronically on 6 liters/minute oxygen by trach collar presented to the emergency department with concern for nausea initially. Patient reported that he was feeling better when his mother arrived she stated that for the last several nights patient has been increasingly more confused awake during the night and just not acting his normal self. Patient reports he has had some difficulty breathing. Further workup in the emergency department showed pCO2 greater than 100 when his baseline is usually around 60. After further questioning patient reports he has not been utilizing his Trelegy vent/bipap the past few nights because he states his daughter does not like the machine. Patient was admitted to the ICU with initial plans of utilizing ventilator settings with tracheostomy but patient's trach is a noncuffed device and he refused to allow this to be changed to a cuffed device due to discomfort. He would only allow his home machine to be used but increase the respiratory rate. Patient awake and seemingly oriented during evaluation but did respond strangely to a few questions. 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 Former smoker. Quit about 1 year ago. Former drinker. Quit about 1 year ago. Former use of cannabis. Quit about 1 year ago. Former use of hallucinogenic mushrooms. Quit about 5 years ago. . Resides with mother and stepfather. Smoking packs per day: 1 Smoking cigarettes per day: 20.0 Years smoked: 20 Smoking pack-years: 20.00 Smoking status: Former smoker Second hand tobacco smoke exposure: No Alcohol intake: former Drinks per week: 1 Substance use: current Substance use type: marijuana Do You Feel Safe in your Home?: Yes Lack of Transportation: No Lack of Food: Never True Current Housing: I Have Housing Concerned About Future Housing: No Difficulty Paying Gas/Electric Bills: No Difficulty Paying for Meds: No Currently Unemployed: No Education: High School Diploma/GED Difficulty w/ Childcare or Family Care: No Living arrangements: with family Occupation/Education: other Additional occupation/education comments: disabled Gender identity (if verbalized by the patient): Male Sexual Orientation (if Verbalized by the Patient): Straight or Heterosexual Spiritual care concerns: No Meds Home Medications and Allergies Home Medications Medication Instructions Recorded Confirmed Type albuterol sulfate 90 mcg/actuation 1 puff inhalation Q4H PRN 05/17/23 12/06/23 Rx aerosol inhaler shortness of breath or wheezing #18 grams apixaban 5 mg tablet (Eliquis) 5 mg PO Q12H #180 tabs 06/26/23 12/06/23 Rx buspirone 10 mg tablet 10 mg PO TID #270 tabs 08/08/23 12/06/23 Rx divalproex 250 mg tablet,delayed 250 mg PO TID #270 tabs 09/13/23
--- NOTE | 2023-12-06 01:09 | PC.NURSE ---
ASSISTANT PROFESSOR OF ART Fadi at bedside. Informed pt did not want to go to a cuffed trach and wanted to use home Bipap unit tonight.Pr states that he has not used it the past couple of nights because he was sleeping with his daughter and she doesn't like the sound. Reinforced need for the pt to comply with prescribed treatment at home as well as in the hospital. Pt shates he wants to use his home Biapap tonight and use his current cuffless trach
[2023-12-06 04:26] LABS: Basophils Percent Auto 0.1 % (0.2-1.2); Hematocrit 29.2 % (42.0-52.0); Hemoglobin 8.8 g/dL (14.0-18.0); Immature Granulocyte Absolute 0.02 K/mm3 (0.00-0.031); Immature Granulocyte Percent A 0.2 % (0-0.5); Lymphocytes Absolute Auto 0.47 K/mm3 (0.9-3.2); Lymphocytes Percent Auto 4.3 % (18.3-44.2); Mean Corpuscular HGB Conc 30.1 g/dl (32-36); Mean Corpuscular Hemoglobin 30.9 pg (26-34); Mean Corpuscular Volume 102.5 fl (80-100); Mean Platelet Volume 9.6 fl (7.4-10.4); Monocytes Absolute Auto 0.1 K/mm3 (0.1-0.6); Monocytes Percent Auto 1.2 % (2.6-8.5); Neutrophils Absolute Auto 10.3 K/mm3 (1.3-6.7); Neutrophils Percent Auto 94.2 % (45.5-73.1); Platelet Count Result 215 k/mm3 (150-375); Red Blood Count 2.85 M/mm3 (4.6-6.20); Red Cell Distribution Width 12.4 % (11.5-14.5)
[2023-12-06 04:37] LABS: Alanine Aminotransferase 18 U/L (6-50); Albumin Level 3.7 g/dL (3.5-5.1); Alkaline Phosphatase 57 U/L (38-126); Aspartate Amino Transferase 19 U/L (17-59); Bilirubin,Total 0.2 mg/dL (0.2-1.3); Blood Urea Nitrogen 21 mg/dL (9-20); Calcium 8.8 mg/dL (8.4-10.2); Carbon Dioxide > 40 mmol/L (22-30); Chloride 89 mmol/L (98-107); Estimated CRCL calculation 214 ml/min; Estimated Glomerular Filt Rate > 60; Glucose 208 mg/dL (65-110); Magnesium 1.9 mg/dL (1.6-2.3); Potassium 4.5 mmol/L (3.4-5.0); Sodium 139 mmol/L (137-145)
[2023-12-06 06:04] LABS: Alveolar/Arterial O2 Gradient 111.8 mmHg; Base Excess ABG 18.7 mEq/l (+/-2.0); Fractional Inspired Oxygen 40 %; HCO3 ABG 46.3 mEq/l (22.0-26.0); Oxygen Content ABG 13.4 %vol (16.0-22.0); Oxygen Saturation ABG 96.1 % (95.0-100.0); Oxyhemoglobin 96.5 % THb (90.0-100.0); PO2 ABG 86.5 mmHg (80.0-100.0); PO2 FiO2 Ratio Arterial Blood 2.16 %; Total Hemoglobin 9.8 g/dL (12.0-18.0); pH ABG 7.405 (7.350-7.450)
[2023-12-06 06:05] LABS: Device BIPAP; Modified Allen's Test Pass; PCO2 ABG 75.6 mmHg (35.0-45.0); Site Drawn RIGHT RADIAL
[2023-12-06 06:06] LABS: Expiratory Pressure 5 cmH2O; Inspiratory Pressure 15 cmH2O
[2023-12-06] MEDS: IPRATROPIUM 0.5 MG/ALBUTEROL SULFATE 2.5 MG AMPUL.NEB 3 ML INHALATION ×3 (08:32→20:58)
[2023-12-06] MEDS: APIXABAN 5 MG TABLET PO ×2 (09:04→21:02)
[2023-12-06] MEDS: DIVALPROEX SODIUM DR 250 MG TABEC PO ×3 (09:04→16:56)
[2023-12-06] MEDS: FERROUS SULFATE 325 MG TABLET DR BY MOUTH (09:05)
[2023-12-06] MEDS: DOXYCYCLINE 100 MG/NS 100 ML 100 MG/100 ML BAG IVPB ×2 (09:05→21:00)
[2023-12-06] MEDS: CYANOCOBALAMIN 250 MCG TABLET PO (09:05)
[2023-12-06] MEDS: ESCITALOPRAM OXALATE 10 MG TABLET 20 MG PO (09:05)
[2023-12-06] MEDS: busPIRone HCL 10 MG TABLET PO ×3 (09:05→16:55)
[2023-12-06] MEDS: FOLIC ACID 1 MG TABLET PO (09:06)
[2023-12-06] MEDS: PANTOPRAZOLE 40 MG TABLET PO (09:06)
[2023-12-06] MEDS: lisinopriL 10 MG TABLET PO (09:06)
[2023-12-06] MEDS: methylPREDNISolone SOD SUCC 40 MG VIAL IV PUSH (09:06)
[2023-12-06] MEDS: METOPROLOL TARTRATE 50 MG TAB PO ×2 (09:06→21:01)
--- NOTE | 2023-12-06 09:44 | WPDCNINT ---
Assessment and Plan Assessment and plan (1) Acute hypercapnic respiratory failure: Code(s): J96.02 - Acute respiratory failure with hypercapnia Status: Acute Assessment and Plan: Patient presented with confusion, shortness of breath, was not wearing his trilogy at home for the last 3 nights. -presented the ED we was found to be hypercapnic with a pCO2 of 102. -patient was placed on his home trilogy settings, pCO2 this morning has improved -chest x-ray showed possible pneumonia, started on ceftriaxone and doxycycline on 12/04 -continue bronchodilators -will discontinue steroids (2) Pneumonia: Code(s): J18.9 - Pneumonia, unspecified organism Status: Acute Assessment and Plan: Questionable pneumonia on chest x-ray, continue antibiotics as above -patient is tolerating home trilogy (3) Tracheostomy dependent: Code(s): Z93.0 - Tracheostomy status Status: Acute Assessment and Plan: History of tracheal stenosis status post tracheal repair anastomosis. Currently on chronic trach and on trilogy at home for likely AUBREY, obesity hypoventilation syndrome and possible COPD (4) Chronic anticoagulation: Code(s): Z79.01 - alf (current) use of anticoagulants Status: Acute Assessment and Plan: Continue Eliquis Plan DVT prophylaxis: Eliquis Stress ulcer prophylaxis: Protonix Nutrition: Regular diet Code Status: Full code Critical Care Time Spent: 47 minutes Due to a high probability of clinically significant, life threatening deterioration, the patient required my highest level of preparedness to intervene emergently and I personally spent this critical care time directly and personally managing the patient. This critical care time included obtaining a history; examining the patient; pulse oximetry; ordering and review of studies; arranging urgent treatment with development of a management plan; evaluation of patient's response to treatment; frequent reassessment; and discussions with other providers. It was exclusive of separately billable procedures and treating other patients and teaching time. Please see Assessment and Plan section and the rest of the note for further information on patient assessment and treatment This dictation may have been done utilizing a voice recognition system. Attempts have been made to correct errors. However, there may be uncorrected grammatical, spelling, and recognitions errors present. Full Time Staff Interpreter Consult Note Consult date: 12/06/23 Reason for consult: Confusion, hypercapnic respiratory failure, pneumonia HPI: Laith Chavez is a 43 year old male past medical history of COPD, chronic tracheostomy secondary to tracheal stenosis, on chronic anticoagulation, sacral decubital ulcers, legally blind, on chronic anticoagulation, chronic respiratory failure on 6 L oxygen via trach collar at home presented the ED with concerns of nausea, confusion and just not acting himself. Patient also reported that he had some trouble breathing. In the ER pCO2 was 102, chest x-ray was concerning for right-sided pneumonia. According the records patient has not been utilizing his trilogy vent/BiPAP for the past few nights because he states his daughter does not like the machine. Patient was placed on his home trilogy, and transferred to the ICU for further management. In the ER patient's WBC count was 12.2, hemoglobin 9.4, platelets 229, sodium 143, potassium 4.3, CO2 >40, creatinine 0.6, glucose of 97. UA did not reflect any UTI, ABGs showed a pH of 7.30, pCO2 of 101.8, PO2 of 133.9, HC03 49, O2 sats 98% on 5 L. Chest x-ray on admission: Airspace and interstitial opacities with bronchial wall thickening in the right mid and bilateral lower lung zones which could represent pneumonia or mild pulmonary edema Patient seen and examined the ICU this morning, is awake, alert with chronic trach attached to the trilogy on home settings. Patient is awake, alert, answe
[2023-12-06 10:01] LABS: NT Pro B Type Natriuretic Pept 305 pg/mL (19.9-100)
[2023-12-06] MEDS: cefTRIAXone 2 GM/NS 100 ML 2 GM/100 ML BAG IVPB (11:05)
[2023-12-06] MEDS: PERFLUTREN LIPID MICROSPHERES 1.5 ML VIAL DILUTED TO 10 ML TOTAL VOLUME IV PUSH (14:45)
--- NOTE | 2023-12-06 15:03 | IVDEFINITY ---
Prior to administration of IV Definity the patient was educated on the risks and benefits of the imaging enhancing agent including potential adverse side effects. The patient verbalized understanding. Allergies were verified. No exclusion criteria were identified and at least one of the following inclusion criteria were met: 1) physician request, 2) patient technically difficult to image (per the [place] [employer] guidelines of two or more segments not discernable within the apical view), or 3) questionable left ventricular function. ?
--- NOTE | 2023-12-06 16:26 | PC.NURSE ---
1600-Patient transfered to room 203 per bed. Respiratory therapist assisted with transfer. Report given to Shagufta Patel RN. All questions answered. Call light within reach.
--- NOTE | 2023-12-06 17:32 | WPDPN ---
Progress Note: A&P Assessment and Plan (1) Acute on chronic respiratory failure with hypercapnia: Code(s): J96.22 - Acute and chronic respiratory failure with hypercapnia Status: Acute Assessment and Plan: History of COPD and tracheal stenosis Tracheostomy present, 6 liters/minute trach collar while awake and Trelegy device when sleeping are home instructions Patient reports not using the Trelegy for the last few days His mother reports worsening confusion over the last few days ABG changes including significant elevation of pCO2 and elevation of HC03 indicating chronic compensation attempts Planned to utilize ventilator settings upon ICU admission however patient refused trach changed to a cuffed trach Since he has not been using Trelegy, we did increase the rate and will recheck ABG in the a.m. 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 Subjective Date/time seen: 12/06/23 17:32 Interval history: Chief Complaint: Acute on chronic respiratory failure, pneumonia [id number]: This is a 43-year-old male patient with a history of COPD, tracheal stenosis, chronic hypercapnic respiratory failure chronically on 6 liters/minute oxygen by trach collar presented to the emergency department with concern for nausea initially. Patient reported that he was feeling better when his mother arrived she stated that for the last several nights patient has been increasingly more confused awake during the night and just not acting his normal self. Patient reports he has had some difficulty breathing. Further workup in the emergency department showed pCO2 greater than 100 when his baseline is usually around 60. After further questioning patient reports he has not been utilizing his Trelegy vent/bipap the past few nights because he states his daughter does not like the machine. Patient was admitted to the ICU with initial plans of utilizing ventilator settings with tracheostomy but patient's trach is a noncuffed device and he refused to allow this to be changed to a cuffed device due to discomfort. He would only allow his home machine to be used but increase the respiratory rate. Patient awake and seemingly oriented during evaluation but did respond strangely to a few questions. patient was placed back on his trilogy to his trach and repeat ABG showed much improvement in his CO2 and clinical symptoms, will transfer patient out of ICU. Review of Systems Review of Systems: All systems reviewed & are unremarkable except as noted in HPI and below Objective Data Vital Signs Vital Signs: Vital Signs - 24 hr 12/05/23 18:41 12/05/23 19:14 12/05/23 18:55 Temperature Pulse Rate 75 80 Respiratory Rate 18 17 Blood Pressure 143/97 H 148/88 H Pulse Oximetry 98 99 98 Oxygen Delivery Trach Collar Oxygen Flow Rate 12/05/23 19:29 12/05/23 20:53 12/05/23 20:58 Temperature Pulse Rate 89 83 Respiratory Rate 18 20 Blood Pressure 148/88 H Pulse Oximetry 100 100 Oxygen Delivery T
[2023-12-06 20:04] LABS: Glucose Point of Care 148 mg/dl (65-105)
[2023-12-06] MEDS: WATER FOR IRRIGATION, STERILE 1,000 ML BOTTLE 1000 ML (21:02)
[2023-12-07] VITALS (18 sets, daily range): BP systolic 101–150; BP diastolic 43–94; PULSE 61–115; RESP 15–24; TEMP 36.4–36.9; O2SAT 99–100
[2023-12-07] MEDS: IPRATROPIUM 0.5 MG/ALBUTEROL SULFATE 2.5 MG AMPUL.NEB 3 ML INHALATION ×3 (02:15→14:02)
[2023-12-07 05:28] LABS: Hemoglobin 8.7 g/dL (14.0-18.0); Mean Corpuscular Hemoglobin 29.6 pg (26-34); Mean Platelet Volume 10.3 fl (7.4-10.4); Platelet Count Result 238 k/mm3 (150-375); Red Blood Count 2.94 M/mm3 (4.6-6.20); White Blood Count 9.5 K/mm3 (4.5-10.0)
[2023-12-07 05:39] LABS: Alanine Aminotransferase 20 U/L (6-50); Albumin Level 3.5 g/dL (3.5-5.1); Alkaline Phosphatase 49 U/L (38-126); Aspartate Amino Transferase 22 U/L (17-59); Bilirubin,Total 0.1 mg/dL (0.2-1.3); Blood Urea Nitrogen 28 mg/dL (9-20); Calcium 8.7 mg/dL (8.4-10.2); Carbon Dioxide > 40 mmol/L (22-30); Chloride 95 mmol/L (98-107); Estimated CRCL calculation 184 ml/min; Estimated Glomerular Filt Rate > 60; Glucose 136 mg/dL (65-110); Magnesium 1.9 mg/dL (1.6-2.3); Phosphorus 2.9 mg/dL (2.5-4.5); Potassium 3.5 mmol/L (3.4-5.0); Sodium 143 mmol/L (137-145)
[2023-12-07 06:03] LABS: Band Neutrophils Percent 1 % (0-6); Lymphocytes Absolute Manual 1.99 K/mm3 (1.1-4.5); Monocytes Absolute Manual 0.19 K/mm3 (0.1-0.90); Monocytes Percent Manual 2 % (3-9); Neutrophils Absolute Manual 7.31 K/mm3 (1.3-6.7); Neutrophils Percent Manual 76 % (46-73); Platelet Estimate Adequate (Adequate); Schistocytes None Seen; Smudge Cells PRESENT; Total Cells Counted 100
[2023-12-07 06:21] LABS: Alveolar/Arterial O2 Gradient 110.3 mmHg; Base Excess ABG 13.6 mEq/l (+/-2.0); Carboxyhemoglobin 0.3 % THb (0-2.0); Fractional Inspired Oxygen 40 %; HCO3 ABG 40.4 mEq/l (22.0-26.0); Methemoglobin ABG 0.3 %THb (0-1.5); Oxygen Content ABG 13.2 %vol (16.0-22.0); Oxygen Saturation ABG 97.3 % (95.0-100.0); Oxyhemoglobin 97.4 % THb (90.0-100.0); PO2 FiO2 Ratio Arterial Blood 2.47 %; Total Hemoglobin 9.5 g/dL (12.0-18.0); pH ABG 7.405 (7.350-7.450)
[2023-12-07 06:33] LABS: Modified Allen's Test Pass; Site Drawn RIGHT RADIAL
[2023-12-07 06:34] LABS: Device OTHER DEVICE
[2023-12-07] MEDS: CYANOCOBALAMIN 250 MCG TABLET PO (08:14)
[2023-12-07] MEDS: METOPROLOL TARTRATE 50 MG TAB PO (08:14)
[2023-12-07] MEDS: ESCITALOPRAM OXALATE 10 MG TABLET 20 MG PO (08:14)
[2023-12-07] MEDS: DIVALPROEX SODIUM DR 250 MG TABEC PO ×2 (08:14→12:04)
[2023-12-07] MEDS: PANTOPRAZOLE 40 MG TABLET PO (08:14)
[2023-12-07] MEDS: FOLIC ACID 1 MG TABLET PO (08:15)
[2023-12-07] MEDS: lisinopriL 10 MG TABLET PO (08:15)
[2023-12-07] MEDS: APIXABAN 5 MG TABLET PO (08:15)
[2023-12-07] MEDS: FERROUS SULFATE 325 MG TABLET DR BY MOUTH (08:15)
[2023-12-07] MEDS: busPIRone HCL 10 MG TABLET PO ×2 (08:15→12:04)
[2023-12-07] MEDS: DOXYCYCLINE 100 MG/NS 100 ML 100 MG/100 ML BAG IVPB (08:29)
--- NOTE | 2023-12-07 09:20 | P.CDI_ITS ---
CDI Query Clarification Request Patient with a BMI of 42.3 please provide a diagnosis to accompany this finding: * Overweight * Obesity * Morbid Obesity * Other/Unknown <Neetu Whitman RN - Last Filed: 12/07/23 09:20> Provider Comments Patient with a BMI of 42.3 has Morbid Obesity <Raza Abraham MD - Last Filed: 12/23/23 10:22>
--- NOTE | 2023-12-07 11:19 | PM.DS ---
DS: Admitting Diagnosis Discharge Date 12/07/2023 Admitting Diagnosis Acute on chronic respiratory failure, pneumonia DS: Discharge Diagnosis Discharge Diagnosis (1) Acute on chronic respiratory failure with hypercapnia: Code(s): J96.22 - Acute and chronic respiratory failure with hypercapnia Status: Acute (2) Chronic hypercapnic respiratory failure: Code(s): J96.12 - Chronic respiratory failure with hypercapnia Status: Acute (3) Tracheostomy dependent: Code(s): Z93.0 - Tracheostomy status Status: Acute (4) COPD (chronic obstructive pulmonary disease): Code(s): J44.9 - Chronic obstructive pulmonary disease, unspecified Status: Acute DS: Summary Hospital Course Hospital Course: Morbidly obese patient trach dependent on trilogy apparently patient was not using hi trilogy and his went to acute respiratory hypercapnic failure and was brought the ER, patient was placed on the his trilogy, his Co2 improved as well his mentation, patient is now his baseline. he is clinically stable, he is instructed to use his trilogy and patient agrees, will discharge home today. Time Spent with Patient Time attestation: Total time spent providing and/or coordinating discharge services: DS: Data Data Completed and Pending Labs on day of discharge: Labs from last 24 hours 12/07/23 12/07/23 12/06/23 05:58 04:23 19:53 WBC 9.5 RBC 2.94 L Hgb 8.7 L Hct 30.0 L MCV 102.0 H MCH 29.6 MCHC 29.0 L RDW 13.0 Plt Count 238 MPV 10.3 Immature Gran % (Auto) Not Reportable Neut % (Auto) Not Reportable Lymph % (Auto) Not Reportable Collier % (Auto) Not Reportable Eos % (Auto) Not Reportable Baso % (Auto) Not Reportable Lymph # (Auto) Not Reportable Collier # (Auto) Not Reportable Eos # (Auto) Not Reportable Baso # (Auto) Not Reportable Abs Immat Gran (auto) Not Reportable Absolute Neuts (auto) Not Reportable Absolute Nucleated RBC Not Reportable Total Counted 100 Neutrophils % (Manual) 76 H Band Neutrophils % 1 Lymphocytes % (Manual) 21.0 Monocytes % (Manual) 2 L Nucleated RBC % Not Reportable Abs Neuts (Manual) 7.31 H Abs Lymphs (Manual) 1.99 Abs Monocytes (Manual) 0.19 Smudge Cells Present Platelet Estimate Adequate Schistocytes None seen Puncture Site Right radial ABG pH 7.405 ABG pCO2 66.0 H* ABG pO2 99.0 ABG PO2/FiO2 Ratio 2.47 ABG HCO3 40.4 H ABG O2 Saturation 97.3 ABG O2 Content 13.2 L ABG Base Excess 13.6 A-a Gradient 110.3 Oxyhemoglobin 97.4 Carboxyhemoglobin 0.3 Methemoglobin 0.3 Reduced Hemoglobin 2.0 Total Hemoglobin 9.5 L O2 Delivery Device Other device O2 Liters/Min 5.0 FiO2 40 Sodium 143 Potassium 3.5 Chloride 95 L Carbon Dioxide > 40 H Anion Gap BUN 28 H Creatinine 0.60 L Estim Creat Clear Calc 184 Estimated GFR > 60 Glucose 136 H POC Capillary Glucose 148 H Calcium 8.7 Phosphorus 2.9 Magnesium 1.9 Total Bilirubin 0.1 L AST 22 ALT 20 Alkaline Phosphatase 49 Total Protein 6.0 L Albumin 3.5 Procalcitonin Ur L.pneumophila Ag Urine Pneumococcal Ag 12/06/23 12/06/23 14:12 04:17 WBC RBC Hgb Hct MCV MCH MCHC RDW Plt Count MPV Immature Gran % (Auto) Neut % (Auto) Lymph % (Auto) Collier % (Auto) Eos % (Auto) Baso % (Auto) Lymph # (Auto) Collier # (Auto) Eos # (Auto) Baso # (Auto) Abs Immat Gran (auto) Absolute Neuts (auto) Absolute Nucleated RBC Total Counted Neutrophils % (Manual) Band Neutrophils % Lymphocytes % (Manual) Monocytes % (Manual) Nucleated RBC % Abs Neuts (Manual) Abs Lymphs (Manual) Abs Monocytes (Manual) Smudge Cells Platelet Estimate Schistocytes Puncture Site ABG pH ABG pCO2 ABG pO2 ABG PO2/FiO2 Ratio ABG HCO3 ABG O2 Satu
[2023-12-07] MEDS: cefTRIAXone 2 GM/NS 100 ML 2 GM/100 ML BAG IVPB (12:04)
[2023-12-10 18:34] LABS: Pneumococcal Antigen Urine NOT DETECTED
[2023-12-12 00:54] LABS: Legionella pneumophila Ag Ur NOT DETECTED
== END 2023-12-07 14:45 | disposition home or self-care (01) | DRG 189 ==
LOC: ANHED 17:57 → ANHICU 21:58 → ANHIMU 12-06 15:56
PROVIDERS: Internal Medicine; Internal Medicine Pulmonary Disease; Nurse Practitioner; Admitting Provider Internal Medicine; Emergency Provider Emergency Medicine; PCP Internal Medicine; Visit Provider Family Medicine
DX: J96.22 Acute and chronic respiratory failure with hypercapnia (principal); J18.9 Pneumonia, unspecified organism; J44.0 Chronic obstructive pulmonary disease with (acute) lower respiratory infection; E66.2 Morbid (severe) obesity with alveolar hypoventilation; Z68.41 Body mass index [BMI] 40.0-44.9, adult; H54.8 Legal blindness, as defined in USA; Z87.891 Personal history of nicotine dependence; Z93.0 Tracheostomy status; Z79.01 Long term (current) use of anticoagulants; Z20.822 Contact with and (suspected) exposure to COVID-19
CPT/HCPCS: 36415; 36600; 71045; 80053; 81001; 82375; 82805; 82948; 83050; 83690; 83735; 83880; 84100; 84145; 84484; 85025; 87449; 87637; 87899; 93005; 94002; 94640; 96365; 96375; 99291; A4629; A9270; C8929; J0696; J2919; Q9957

== ENCOUNTER 2023-12-11 17:29 | Emergency (ER) | payer MEDICARE, SELFPAY ==
--- NOTE | ~2023-12-11 | XR_ITS ---
EXAMINATION: XR chest ET placement DATE: 12/11/2023 17:55 INDICATION: Tracheostomy. TECHNIQUE: A single frontal view of the chest was obtained. COMPARISON: Chest view 12/07/2023 FINDINGS: Right lateral costophrenic angle is excluded. There are airspace opacities in the perihilar regions. No pleural effusion or pneumothorax. The heart size is normal. Median sternotomy wires are noted. There is a tracheostomy tube in expected position. IMPRESSION: 1. Airspace opacities in the perihilar regions, consistent with atelectasis versus pneumonia. Reviewed, dictated and finalized at location A. IMPRESSION: 1. Airspace opacities in the perihilar regions, consistent with atelectasis ham jelani pneumonia.
--- NOTE | ~2023-12-11 | XR_ITS ---
EXAMINATION: XR abdomen gastric tube insert DATE: 12/11/2023 18:28 INDICATION: Nasogastric tube placement. TECHNIQUE: A supine view of the abdomen on 2 radiographs was obtained. COMPARISON: None. FINDINGS: Median sternotomy wires are noted. The nasogastric tube tip is in the stomach with proximal side-port at the gastroesophageal junction. There are no dilated loops of bowel. IMPRESSION: 1. Nasogastric tube tip in the stomach with proximal side-port of the gastroesophageal junction. Adva ncement 3 cm is recommended. Reviewed, dictated and finalized at location A. IMPRESSION: 1. Nasogastric tube tip in the stomach with proximal side-port of the gastroeso phageal junction. Advancement 3 cm is recommended.
[2023-12-11 17:30] VITALS: BP 129/87; PULSE 123; RESP 16; TEMP 36.4; O2SAT 61
--- NOTE | 2023-12-11 17:44 | ED.GENADULT ---
HPI - General Adult General Chief complaint: Unspecified Stated complaint: pulled out trach Time Seen by Provider: 12/11/23 17:46 History of Present Illness HPI narrative: 43-year-old male presenting with dislodged trach. Patient was seen for this 2 weeks ago. 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 Unclear how he pulled it out today. Saturating 60% trach mask. Further history limited secondary to acuity of condition. Related Data Home Medications Medication Instructions Recorded Confirmed cyanocobalamin (vitamin B-12) 100 100 mcg PO DAILY 12/06/23 12/06/23 mcg tablet ferrous sulfate 325 mg (65 mg 325 mg PO DAILY 12/06/23 12/06/23 iron) tablet folic acid 1 mg tablet 1 mg PO DAILY 12/06/23 12/06/23 lisinopril 10 mg tablet 10 mg PO DAILY 12/06/23 12/06/23 pantoprazole 40 mg tablet,delayed 40 mg PO DAILY 12/06/23 12/06/23 release Allergies Allergy/AdvReac Type Severity Reaction Status Date / Time codeine Allergy Unknown Unknown Verified 10/15/23 13:25 Review of Systems Review of Systems: ROS unobtainable: Yes unobtainable due to medical condition PMFSH Past Medical History Medical History Chronic anticoagulation COPD (chronic obstructive pulmonary disease) Decubitus ulcer of right leg, stage 3 Legally blind Metatarsal bone fracture Right foot pain Sacral decubitus ulcer, stage III Sacral decubitus ulcer, stage IV 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 Former smoker. Quit about 1 year ago. Former drinker. Quit about 1 year ago. Former use of cannabis. Quit about 1 year ago. Former use of hallucinogenic mushrooms. Quit about 5 years ago. . Resides with mother and stepfather. Smoking packs per day: 1 Smoking cigarettes per day: 20.0 Years smoked: 20 Smoking pack-years: 20.00 Smoking status: Former smoker Second hand tobacco smoke exposure: No Alcohol intake: former Drinks per week: 1 Substance use: current Substance use type: marijuana Do You Feel Safe in your Home?: Yes Lack of Transportation: No Lack of Food: Never True Current Housing: I Have Housing Concerned About Future Housing: No Difficulty Paying Gas/Electric Bills: No Difficulty Paying for Meds: No Currently Unemployed: No Education: High School Diploma/GED Difficulty w/ Childcare or Family Care: No Living arrangements: with family Occupation/Education: other Additional occupation/education comments: disabled Gender identity (if verbalized by the patient): Male Sexual Orientation (if Verbalized by the Patient): Straight or Heterosexual Spiritual care concerns: No Exam Narrative: GENERAL: pale, ill-appearing HEAD: Normocephalic, atraumatic. EYES: PERRLA and EOMI. ENT: trach site bleeding NECK: Supple. CHEST: coarse breath sounds bilaterally, saturating 60% on trach collar HEART: Tachycardic, regular rhythm EXTREMITIES: Normal range of motion SKIN: Warm, dry, no rash. NEURO: moving all extremities spontaneously PSYCH: unable to assess Course Vital Signs Vital signs: Vital Signs Temperature 97.6 F 12/11/23 17:30 Pulse Rate 123 H 12/11/23 17:30 Respiratory Rate 16 12/11/23 17:30 Blood Pressure 129/87 12/11/23 17:30 Pulse Oximetry 61 L 12/11/23 17:30 Oxygen Delivery Trach Collar 12/11/23 17:30 Oxygen
[2023-12-11 17:50] VITALS: O2SAT 100
[2023-12-11 18:01] VITALS: PULSE 121; RESP 14
[2023-12-11] MEDS: PROPOFOL IV EMULSION 100 ML 3.69 MG IV CONT (18:01)
[2023-12-11 18:05] VITALS: BP 133/90; PULSE 120; RESP 12; O2SAT 100
--- NOTE | 2023-12-11 18:22 | PC.NURSE ---
1742 called airvac for room 3 for standby 1745 call accepted standby 1746 called slu to transfer 1755 called airvac 1756 eta 8 minutes security called at [phone] airvac arrived
[2023-12-11 18:54] VITALS: PULSE 132; O2SAT 100
--- NOTE | 2023-12-11 19:05 | PC.NURSE ---
1740 Pt being bagged by respiratory, o2 saturation 100% 174 Administered 20mg of Etomidate by Georgie JOYCE 174 Penelope 4 cuff tr[address] placed by Dr. Zapata [address] Zapata for crane catheter, soft wrist restraints and a propofol drip 174 20mg Etomidate administered by MARIA DEL CARMEN Michaud 174 100mg Rocuronium administered by MARIA DEL CARMEN Michaud 174 Pt placed on vent by respiratory 175 18g IV placed in the R AC by MARIA DEL CARMEN Batista 175 Crane catheter placed by [facility]ITALelectric[facility] technician 175 Propofol started at 5mg 1754 Pt placed in bilateral soft wrist restraints
[2023-12-11 19:13] VITALS: O2SAT 99
== END 2023-12-11 19:04 | disposition short-term general hospital (02) ==
PROVIDERS: Emergency Provider Emergency Medicine; PCP Internal Medicine
DX: Z43.0 Encounter for attention to tracheostomy (principal); J39.8 Other specified diseases of upper respiratory tract; J96.21 Acute and chronic respiratory failure with hypoxia; J44.9 Chronic obstructive pulmonary disease, unspecified; H54.8 Legal blindness, as defined in USA; Z87.891 Personal history of nicotine dependence; R91.8 Other nonspecific abnormal finding of lung field
CPT/HCPCS: 31500; 31899; 51702; 96365; 99291; J2704

== ENCOUNTER 2023-12-24 10:49 | Outpatient (CLI) | payer MEDICARE, SELFPAY ==
[2023-12-24 15:18] LABS: Basophils Percent Auto 0.1 % (0.2-1.2); Eosinophils Percent Auto 0.3 % (0-4.4); Hematocrit 33.2 % (42.0-52.0); Hemoglobin 9.3 g/dL (14.0-18.0); Immature Granulocyte Absolute 0.07 K/mm3 (0.00-0.031); Immature Granulocyte Percent A 0.5 % (0-0.5); Lymphocytes Absolute Auto 1.22 K/mm3 (0.9-3.2); Lymphocytes Percent Auto 8.8 % (18.3-44.2); Mean Corpuscular Hemoglobin 30.3 pg (26-34); Mean Corpuscular Volume 108.1 fl (80-100); Mean Platelet Volume 11.4 fl (7.4-10.4); Monocytes Absolute Auto 0.6 K/mm3 (0.1-0.6); Monocytes Percent Auto 4.3 % (2.6-8.5); Neutrophils Absolute Auto 11.9 K/mm3 (1.3-6.7); Platelet Count Result 144 k/mm3 (150-375); Red Blood Count 3.07 M/mm3 (4.6-6.20); Red Cell Distribution Width 13.7 % (11.5-14.5); White Blood Count 13.9 K/mm3 (4.5-10.0)
[2023-12-24 15:55] LABS: Platelet Estimate Slightly Decreased (Adequate); Schistocytes None Seen
[2023-12-24 15:56] LABS: Hypochromasia 1+; Macrocytosis 1+ (NORMAL)
[2023-12-24 16:40] LABS: Folic Acid > 20.0 ng/mL (2.76->20)
== END 2023-12-24 10:50 | disposition home or self-care (01) ==
LOC: ANHGOSHLAB 10:50
PROVIDERS: PCP Internal Medicine; Visit Provider Internal Medicine
DX: D64.9 Anemia, unspecified (principal); J96.12 Chronic respiratory failure with hypercapnia; M79.671 Pain in right foot; Z79.01 Long term (current) use of anticoagulants; D22.9 Melanocytic nevi, unspecified
CPT/HCPCS: 36415; 82607; 82728; 82746; 84443; 85025

== ENCOUNTER 2023-12-24 15:44 | Inpatient (IN) | payer MEDICARE, SELFPAY ==
[2023-12-24] VITALS (41 sets, daily range): BP systolic 83–143; BP diastolic 49–78; PULSE 52–85; RESP 13–26; TEMP 37.1–37.8; O2SAT 93–100
--- NOTE | ~2023-12-24 | XR_ITS ---
Portable chest x-ray Comparison: 12/24/2023 Clinical History: Atelectasis Findings: Tracheostomy cannula in place. Possible minimal bibasilar haziness. No pleural effusion. Cardiomediastinal silhouette is stable. Bones and soft tissues are unremarkable. Impression: Possible minimal bibasilar pulmonary edema. Stable cardiomegaly, status post median sternotomy. Tracheostomy cannula. Reviewed, dictated and finalized at location . Impression: Possible minimal bibasilar pulmonary edema. Stable cardiomegaly, status post median sternotomy. Tracheostomy cannula.
--- NOTE | ~2023-12-24 | XR_ITS ---
EXAMINATION: XR chest 1V portable DATE: 12/29/2023 09:41 INDICATION: Tracheal stenosis and atelectasis for predischarge follow-up TECHNIQUE: frontal view of the chest was obtained. COMPARISON: Chest radiograph dated 12/27/23 FINDINGS: Tracheostomy tube at the thoracic inlet. New linear band of discoid atelectasis/scarring at the left lower lung zone. No pulmonary edema, pleural effusion or pneumothorax. Cardiomegaly. Median sternotom y wires and mediastinal surgical clips are seen, likely from prior coronary artery bypass grafting. IMPRESSION: 1. New linear band of discoid atelectasis in the left lower lung zone. 2. Cardiomegaly. Reviewed, dictated and finalized at location A.
--- NOTE | ~2023-12-24 | XR_ITS ---
EXAMINATION: XR chest 1V portable Exam Date/Time: 12/24/2023 17:35 CDT HISTORY: dyspnea Comparison: 2724. RESULT: Lines, tubes, and devices: Tracheostomy tube in good position. Intact sternotomy wires. Lungs and pleura: Minimal streaky linear bibasilar opacities probably representing atelectasis. Mild left costophrenic angle blunting. Cardiomediastinal silhouette: Stable. Other: No acute osseous or upper abdominal finding. IMPRESSION: Bibasilar atelectasis. Possible small left pleural effusion. Reviewed, dictated and finalized at location K.
--- NOTE | ~2023-12-24 | XR_ITS ---
EXAMINATION: XR abdomen gastric tube insert DATE: 12/25/2023 08:21 INDICATION: Nasogastric tube placement TECHNIQUE: A supine view of the abdomen and lower chest was obtained for evaluation of feeding tube placement. COMPARISON: None. FINDINGS: Nasogastric tube tip in proximal side port in the body of the stomach. No dilated loops of gas-filled bowel in the visualized abdomen. Opacities at the left lower lung zone which could represent atelect asis or pneumonia possibly a small pleural effusion cardiomegaly. Median sternotomy wires and mediast inal surgical clips are seen, likely from prior coronary artery bypass grafting. IMPRESSION: 1. Nasogastric tube in stomach. 2. Left basilar atelectasis versus pneumonia, possibly with small left pleural effusion. Reviewed, dictated and finalized at location B.
--- NOTE | ~2023-12-24 | CT_ITS ---
EXAMINATION: CT brain wo con DATE: 12/25/2023 10:18 INDICATION: Confusion. TECHNIQUE: Computed tomography (CT) of the head was performed without intravenous contrast. The mA wa s adjusted according to patient size. Iterative reconstruction technique was employed. The dose-lengt h product was 756.67 mGy-cm. COMPARISON: None FINDINGS: There is no intracranial hemorrhage, acute infarction, or abnormal intracranial mass lesion . The ventricles are normal in size. The septum pellucidum is not well visualized and may be thin or absent. The paranasal sinuses are clear. The orbits are normal. The mastoid air cells are normal. IMPRESSION: 1. No acute intracranial pathology. Reviewed, dictated and finalized at location A.
--- NOTE | ~2023-12-24 | CT_ITS ---
EXAMINATION: CT soft tissue neck chest wo DATE: 12/25/2023 10:28 INDICATION: Tracheal stenosis and hypoxia. TECHNIQUE: Computed tomography (CT) of the neck and chest was performed without intravenous contrast. Automated exposure control and iterative reconstruction technique were employed. The dose-length pro duct was 1422.36 mGy-cm. COMPARISON: Chest CT 09/28/2022 FINDINGS: CT NECK: There are no pathologically enlarged lymph nodes. There is a tracheostomy tube in expected p osition. The nasogastric tube tip is in the stomach. The paranasal sinuses are clear. The mastoid air cells are normal. There is mild cervical spondylosis. CT CHEST: There are centrilobular nodules and tree-in-bud opacities in posterior segment right upper lobe. There is a 12 mm nodule in right middle lobe, new from 09/28/22. There are centrilobular nodules and mild groundglass opacities in left upper lobe. There is complete collapse of left lower lobe. Th ere is mild atelectasis in right lower lobe and right middle lobe. No pleural effusion. Cardiomegaly is noted. There are coronary artery calcifications. No pericardial effusion. There is mild mediastina l lymphadenopathy, likely reactive. There is focal stenosis of the trachea spanning 4 cm craniocaudal . The narrowest cross-section measures 6 x 3 mm. There is mild chronic anterior wedging of multiple v ertebral bodies. There is moderate thoracic spondylosis. IMPRESSION: 1. Severe tracheal stenosis. 2. Mild multifocal pneumonia. 3. Complete collapse of left lung lower lobe. 4. 12 mm right middle lobe pulmonary nodule, which may be infection or malignancy. Noncontrast low-do se chest CT is recommended in 3 months. Reviewed, dictated and finalized at location A. IMPRESSION: 1. Severe tracheal stenosis. 2. Mild multifocal pneumonia. 3. Complete collapse of left lung lower lobe. 4. 12 mm right middle lobe pulmonary nodule, which may be infection or malignan cy. Noncontrast low-dose chest CT is recommended in 3 months.
[2023-12-24] MEDS: IPRATROPIUM 0.5 MG/ALBUTEROL SULFATE 2.5 MG AMPUL.NEB 3 ML INHALATION ×2 (16:15→20:50)
[2023-12-24 16:32] LABS: Alveolar/Arterial O2 Gradient 195.3 mmHg; Base Excess ABG 21.2 mEq/l (+/-2.0); Fractional Inspired Oxygen 60 %; HCO3 ABG 51.5 mEq/l (22.0-26.0); Oxygen Content ABG 13.9 %vol (16.0-22.0); Oxygen Saturation ABG 97.5 % (95.0-100.0); PO2 ABG 116.5 mmHg (80.0-100.0); PO2 FiO2 Ratio Arterial Blood 1.94 %; Total Hemoglobin 9.9 g/dL (12.0-18.0); pH ABG 7.306 (7.350-7.450)
[2023-12-24 16:33] LABS: Device HIGH FLOW THERAPY; Modified Allen's Test Pass; PCO2 ABG 105.5 mmHg (35.0-45.0); Site Drawn RIGHT RADIAL
[2023-12-24 16:51] LABS: Basophils Percent Auto 0.3 % (0.2-1.2); Eosinophils Absolute Auto 0.1 K/mm3 (0-0.3); Eosinophils Percent Auto 0.4 % (0-4.4); Hematocrit 30.2 % (42.0-52.0); Hemoglobin 8.8 g/dL (14.0-18.0); Immature Granulocyte Absolute 0.04 K/mm3 (0.00-0.031); Immature Granulocyte Percent A 0.3 % (0-0.5); Lymphocytes Absolute Auto 1.16 K/mm3 (0.9-3.2); Mean Corpuscular HGB Conc 29.1 g/dl (32-36); Mean Corpuscular Hemoglobin 30.7 pg (26-34); Mean Corpuscular Volume 105.2 fl (80-100); Mean Platelet Volume 11.2 fl (7.4-10.4); Monocytes Absolute Auto 0.7 K/mm3 (0.1-0.6); Monocytes Percent Auto 5.9 % (2.6-8.5); Neutrophils Absolute Auto 9.7 K/mm3 (1.3-6.7); Neutrophils Percent Auto 83.1 % (45.5-73.1); Platelet Count Result 145 k/mm3 (150-375); Red Blood Count 2.87 M/mm3 (4.6-6.20); Red Cell Distribution Width 13.7 % (11.5-14.5); White Blood Count 11.7 K/mm3 (4.5-10.0)
[2023-12-24 17:00] LABS: Lactic Acid Reflex 1.1 mmol/L (0.7-2.0)
[2023-12-24 17:04] LABS: Alanine Aminotransferase 20 U/L (6-50); Alkaline Phosphatase 53 U/L (38-126); Aspartate Amino Transferase 23 U/L (17-59); Bilirubin,Total 0.4 mg/dL (0.2-1.3); Blood Urea Nitrogen 27 mg/dL (9-20); Calcium 8.9 mg/dL (8.4-10.2); Carbon Dioxide > 40 mmol/L (22-30); Chloride 88 mmol/L (98-107); Estimated CRCL calculation 176 ml/min; Estimated Glomerular Filt Rate > 60; Glucose 120 mg/dL (65-110); Potassium 4.1 mmol/L (3.4-5.0); Sodium 141 mmol/L (137-145)
[2023-12-24 17:10] LABS: NT Pro B Type Natriuretic Pept 120 pg/mL (19.9-100)
[2023-12-24 17:13] LABS: Troponin I 0.015 ng/mL (0.000-0.034)
[2023-12-24 18:03] LABS: Hypochromasia 1+; Platelet Estimate Slightly Decreased (Adequate); Schistocytes None Seen
[2023-12-24 18:04] LABS: Macrocytosis 1+ (NORMAL)
[2023-12-24 18:11] LABS: Alveolar/Arterial O2 Gradient 166.5 mmHg; Base Excess ABG 14.8 mEq/l (+/-2.0); Fractional Inspired Oxygen 40 %; HCO3 ABG 40.5 mEq/l (22.0-26.0); Oxygen Content ABG 13.5 %vol (16.0-22.0); Oxygen Saturation ABG 89.3 % (95.0-100.0); Oxyhemoglobin 90.3 % THb (90.0-100.0); PCO2 ABG 56.3 mmHg (35.0-45.0); PO2 FiO2 Ratio Arterial Blood 1.35 %; Total Hemoglobin 10.6 g/dL (12.0-18.0); pH ABG 7.475 (7.350-7.450)
[2023-12-24 18:12] LABS: Device VENTILATOR; Modified Allen's Test Pass; Site Drawn RIGHT RADIAL
[2023-12-24 18:13] LABS: Arterial Blood Gas Vent Mode CMV; Arterial Blood Gas Ventilator rate 20 /MIN
[2023-12-24 18:14] LABS: Arterial Blood Gas PEEP 5 cmH2O; Arterial Blood Gas Tidal Volume 500 ml
--- NOTE | 2023-12-24 18:14 | ED.GENADULT ---
HPI - General Adult General Chief complaint: Shortness of Breath/Dyspnea Stated complaint: trach obstruction Time Seen by Provider: 12/24/23 16:06 History of Present Illness HPI narrative: Patient is a 43-year-old gentleman who presents emergency department with chief complaint of shortness of breath patient has history of a tracheostomy and reports he feels as though his trach is plugged. The patient was placed on a non-rebreather over his trach as he was moderately tachypneic. Patient states he is becoming more more short of breath Related Data Home Medications Medication Instructions Recorded Confirmed cyanocobalamin (vitamin B-12) 100 100 mcg PO DAILY 12/06/23 12/24/23 mcg tablet ferrous sulfate 325 mg (65 mg 325 mg PO DAILY 12/06/23 12/24/23 iron) tablet folic acid 1 mg tablet 1 mg PO DAILY 12/06/23 12/24/23 lisinopril 10 mg tablet 10 mg PO DAILY 12/06/23 12/24/23 pantoprazole 40 mg tablet,delayed 40 mg PO DAILY 12/06/23 12/24/23 release acetaminophen 500 mg tablet 500 mg PO Q6H PRN Pain 12/24/23 12/24/23 divalproex 250 mg tablet,delayed 250 mg PO TID 12/24/23 12/24/23 release levalbuterol HCl 1.25 mg/3 mL 1.25 mg inhalation Q4H shortness 12/24/23 12/24/23 solution for nebulization of breath or wheezing Allergies Allergy/AdvReac Type Severity Reaction Status Date / Time codeine Allergy Unknown Unknown Verified 12/24/23 20:58 Review of Systems Review of Systems: A 10 system review of systems was completed on the patient and is negative except for what is stated in the HPI. Nursing and ancillary documentation was reviewed. 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 Code status: Full code. Smoking packs per day: 1 Smoking cigarettes per day: 20.0 Years smoked: 20 Smoking pack-years: 20.00 Smoking status: Former smoker Second hand tobacco smoke exposure: No Alcohol intake: former Drinks per week: 1 Substance use: former Substance use type: marijuana Do You Feel Safe in your Home?: Yes Lack of Transportation: No Lack of Food: Never True Current Housing: I Have Housing Concerned About Future Housing: No Difficulty Paying Gas/Electric Bills: No Difficulty Paying for Meds: No Currently Unemployed: No Education: High School Diploma/GED Difficulty w/ Childcare or Family Care: No Living arrangements: with family Additional living arrangements comments: Lives with mother. Additional occupation/education comments: Disabled due to chronic blindness. Spiritual care concerns: No Exam Narrative: GENERAL: Well-appearing, well-nourished, and in no acute distress. HEAD: Normocephalic, atraumatic. EYES: PERRLA and EOMI. ENT: Nares clear, no rhinorrhea or epistaxis. Mucous membranes moist. NECK: Supple. Trach in place no stridor CHEST: Clear to auscultation. Moderate respiratory distress. HEART: Regular rate and rhythm. No murmur heard. Normal peripheral pulses. ABDOMEN: Soft, nontender, nondistended, normal active bowel sounds. EXTREMITIES: Normal range of motion. No edema. SKIN: Warm, dry, no rash. NEURO: No focal defic
[2023-12-24] MEDS: methylPREDNISolone SOD SUCC 125 MG VIAL IV PUSH (18:33)
[2023-12-24] MEDS: PROPOFOL IV EMULSION 100 ML 3.67 MG IV CONT (18:33)
[2023-12-24 18:37] LABS: Triglycerides 209 mg/dL (<150)
--- NOTE | 2023-12-24 18:42 | PM.IMHP ---
H&P: HPI History of Present Illness Date/Time: 12/24/23 19:00 Chief Complaint: Shortness of breath. Narrative: This is a 43-year-old male with history of tracheal stenosis with chronic tracheostomy, chronic respiratory failure on 6 L via trach collar, chronic obstructive pulmonary disease, hypertension, depression, anxiety, and history of DVT on chronic anticoagulation who presented to the emergency department via EMS from home for evaluation of shortness of breath. He is not able to provide history at this time as his trach his hooked up to the ventilator and he is on medications for sedation. As such a majority of the following is obtained via a review of his EMR as well as information provided by his mother. He was recently admitted to [facility] and was discharged home about 4 days ago on ciprofloxacin for presumed tracheitis. Since that time he has been confused and occasionally hallucinating and saying strange things. Today he was apparently short of breath and had a mucous plugging his trach. The mucus plug was suctioned and he was placed on a non-rebreather for EMS and brought in. According to the ED nurse, he did not have any complaints upon arrival. In the ED: He was afebrile on arrival with stable blood pressures. Labs are significant for WBC count 11.7, hemoglobin 8.8, carbon dioxide greater than 40, BUN 27, creatinine 0.60, glucose 123, lactic acid 1.1, proBNP 120. ABG showed pH of 7.306, pCO2 105.5, PO2 116.5, bicarb 51.5. Mucus plug was removed. Trach collar was exchanged and he was started on mechanical ventilation for hypercapnia. He became quite agitated thereafter and was started on propofol. He is being admitted to the ICU in this setting. Review of Systems Review of Systems: Unable to be obtained as he is currently on sedation due to restlessness on the ventilator. 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 Code status: Full code. Smoking packs per day: 1 Smoking cigarettes per day: 20.0 Years smoked: 20 Smoking pack-years: 20.00 Smoking status: Former smoker Second hand tobacco smoke exposure: No Alcohol intake: former Drinks per week: 1 Substance use: former Substance use type: marijuana Do You Feel Safe in your Home?: Yes Lack of Transportation: No Lack of Food: Never True Current Housing: I Have Housing Concerned About Future Housing: No Difficulty Paying Gas/Electric Bills: No Difficulty Paying for Meds: No Currently Unemployed: No Education: High School Diploma/GED Difficulty w/ Childcare or Family Care: No Living arrangements: with family Additional living arrangements comments: Lives with mother. Additional occupation/education comments: Disabled due to chronic blindness. Spiritual care concerns: No Meds Home Medications and Allergies Home Medications Medication Instructions Recorded Confirmed Type apixaban 5 mg tablet (Eliquis) 5 mg PO Q12H #180 tabs 06/26/23 12/24/23 Rx buspirone 10 mg tablet 10 mg PO TID #270 tabs 08/08/23 12/24/23 Rx metoprolol tartrate 50 mg tablet 5
[2023-12-24] MEDS: FENTANYL 2,500MCG/NS250ML(*CRX 2,500 MCG/250 ML BAG 10 MCG IV CONT (18:54)
[2023-12-24] MEDS: MIDAZOLAM 100MG/NS 100ML(*CRX) 100 MG/100 ML BAG IV CONT ×2 (18:55→20:30)
--- NOTE | 2023-12-24 20:10 | ADMGEN ---
This patient, Laith Chavez, was admitted to Intensive Care Unit-5. Patient/family oriented to hospital policies and general routines including ID bracelet, bed and alarms, visiting hours, pain management, procedures, bathroom and other care routines, personal items, smoking policy, room service/diet, and visiting hours. Information on how to activate the Rapid Response Team has been discussed. Patient/Family are encouraged to report perceived risks to care and to ask questions if they do not understand what they are told or what they should do.
[2023-12-24] MEDS: FENTANYL 2,500MCG/NS250ML(*CRX 2,500 MCG/250 ML BAG 15 MCG IV CONT (20:30)
[2023-12-24] MEDS: AZITHROMYCIN 500 MG/NS 250 ML 500 MG/250 ML BAG 250 MG IVPB (21:05)
[2023-12-24 21:08] LABS: Triglycerides 217 mg/dL (<150)
[2023-12-24] MEDS: PROPOFOL IV EMULSION 100 ML 36.69 MG IV CONT (21:11)
[2023-12-24 21:18] LABS: Glucose Point of Care 123 mg/dl (65-105)
--- NOTE | 2023-12-24 22:22 | PC.NURSE ---
2010: Patient arrived to ICU on 50 mcg/kg/min.
[2023-12-24] MEDS: MINERAL OIL/WHITE PETROLATUM OINTMENT 1 APPLIC EACH EYE (22:33)
[2023-12-24 23:28] LABS: MRSA (PCR) NOT DETECTED (NOT DETECTE)
[2023-12-25] VITALS (74 sets, daily range): BP systolic 75–157; BP diastolic 41–89; PULSE 56–101; RESP 12–99; TEMP 36.4–37.8; O2SAT 90–100; BMI 41.5; BMI 41.4
[2023-12-25] MEDS: PROPOFOL IV EMULSION 100 ML 22.01 MG IV CONT (01:01)
[2023-12-25] MEDS: IPRATROPIUM 0.5 MG/ALBUTEROL SULFATE 2.5 MG AMPUL.NEB 3 ML INHALATION ×3 (01:26→14:31)
[2023-12-25] MEDS: SODIUM CHLORIDE 0.9% IV 1,000 ML 999 ML IV CONT (02:09)
[2023-12-25 02:16] LABS: Blood Urea Nitrogen 31 mg/dL (9-20); Calcium 9.3 mg/dL (8.4-10.2); Carbon Dioxide > 40 mmol/L (22-30); Chloride 89 mmol/L (98-107); Estimated CRCL calculation 110 ml/min; Estimated Glomerular Filt Rate > 60; Glucose 135 mg/dL (65-110); Potassium 4.7 mmol/L (3.4-5.0); Sodium 139 mmol/L (137-145)
--- NOTE | 2023-12-25 02:34 | PC.NURSE ---
0234: Propofol paused d/t BP 79/43.
[2023-12-25 04:50] LABS: Basophils Percent Auto 0.1 % (0.2-1.2); Immature Granulocyte Absolute 0.04 K/mm3 (0.00-0.031); Immature Granulocyte Percent A 0.4 % (0-0.5); Lymphocytes Absolute Auto 0.82 K/mm3 (0.9-3.2); Lymphocytes Percent Auto 8.2 % (18.3-44.2); Mean Corpuscular Hemoglobin 30.6 pg (26-34); Mean Platelet Volume 10.9 fl (7.4-10.4); Monocytes Absolute Auto 0.2 K/mm3 (0.1-0.6); Monocytes Percent Auto 2.3 % (2.6-8.5); Neutrophils Absolute Auto 8.9 K/mm3 (1.3-6.7); Platelet Count Result 155 k/mm3 (150-375); Red Blood Count 2.94 M/mm3 (4.6-6.20); Red Cell Distribution Width 13.8 % (11.5-14.5)
[2023-12-25 05:06] LABS: Alveolar/Arterial O2 Gradient 153.9 mmHg; Base Excess ABG 14.8 mEq/l (+/-2.0); Fractional Inspired Oxygen 40 %; HCO3 ABG 40.1 mEq/l (22.0-26.0); Oxygen Content ABG 13.3 %vol (16.0-22.0); Oxygen Saturation ABG 94.5 % (95.0-100.0); Oxyhemoglobin 94.4 % THb (90.0-100.0); PCO2 ABG 54.6 mmHg (35.0-45.0); PO2 ABG 68.5 mmHg (80.0-100.0); PO2 FiO2 Ratio Arterial Blood 1.71 %; pH ABG 7.484 (7.350-7.450)
[2023-12-25 05:07] LABS: Arterial Blood Gas PEEP 5 cmH2O; Arterial Blood Gas Vent Mode CMV; Arterial Blood Gas Ventilator rate 20 /MIN; Device VENTILATOR; Modified Allen's Test Pass; Site Drawn LEFT RADIAL
[2023-12-25 05:08] LABS: Alanine Aminotransferase 20 U/L (6-50); Alkaline Phosphatase 51 U/L (38-126); Aspartate Amino Transferase 24 U/L (17-59); Bilirubin,Total 0.6 mg/dL (0.2-1.3); Blood Urea Nitrogen 36 mg/dL (9-20); CRP 1.5 mg/dL (<1.0); Calcium 8.9 mg/dL (8.4-10.2); Carbon Dioxide > 40 mmol/L (22-30); Chloride 91 mmol/L (98-107); Estimated CRCL calculation 124 ml/min; Estimated Glomerular Filt Rate > 60; Glucose 131 mg/dL (65-110); Magnesium 1.8 mg/dL (1.6-2.3); Potassium 4.7 mmol/L (3.4-5.0); Sodium 139 mmol/L (137-145)
[2023-12-25 05:08] LABS: Arterial Blood Gas Tidal Volume 500 ml
[2023-12-25 05:50] LABS: Procalcitonin 0.1 ng/mL
[2023-12-25 08:11] LABS: Appearance Urine Cloudy (Clear); Bilirubin Urine Negative (Negative); Blood Urine Negative (Negative); Color Urine Yellow (Yellow); Glucose Urine UA Negative (Negative); Ketones Urine 3+ mg/dL (Negative); Leukocyte Esterase Ur Negative LEU/UL (Negative); Nitrate Urine Negative (Negative); Protein Urine 1+ mg/dL (Negative); Specific Grav Ur 1.022 (1.001-1.035)
[2023-12-25 08:12] LABS: Add Urine Microscopic? YES; Bacteria Urine None Seen /hpf; Need Manual Microscopic Reviewed; Squamous Epithelial Cell Urine Occasional /hpf (Few); WBC Urine 0-5 /hpf (0-3)
[2023-12-25] MEDS: FOLIC ACID 1 MG TABLET PO (08:33)
[2023-12-25] MEDS: APIXABAN 5 MG TABLET PO ×2 (08:33→19:59)
[2023-12-25] MEDS: METOPROLOL TARTRATE 50 MG TAB PO (08:33)
[2023-12-25] MEDS: busPIRone HCL 10 MG TABLET PO ×3 (08:33→17:04)
[2023-12-25] MEDS: DIVALPROEX SODIUM DR 250 MG TABEC PO ×3 (08:33→17:04)
[2023-12-25 08:34] LABS: Influenza A QL RT-PCR Negative (Negative); Influenza B QL RT-PCR Negative (Negative); RSV RNA, RT-PCR Negative (Negative); SARS-CoV-2 RNA PCR Negative (Negative)
[2023-12-25] MEDS: PANTOPRAZOLE 40 MG TABLET PO (08:34)
[2023-12-25] MEDS: MINERAL OIL/WHITE PETROLATUM OINTMENT 1 APPLIC EACH EYE ×2 (08:34→20:00)
[2023-12-25] MEDS: FERROUS SULFATE 325 MG TABLET DR PO (08:34)
[2023-12-25] MEDS: PROPOFOL IV EMULSION 100 ML 25.68 MG IV CONT ×3 (08:39→22:23)
--- NOTE | 2023-12-25 09:15 | WPDCNINT ---
Assessment and Plan Assessment and plan (1) Acute on chronic respiratory failure with hypoxia and hypercapnia: Code(s): J96.21 - Acute and chronic respiratory failure with hypoxia; J96.22 - Acute and chronic respiratory failure with hypercapnia Status: Acute Assessment and Plan: Patient has chronic respiratory failure secondary to tracheal stenosis status was tracheostomy. He is on 3-5 L of oxygen at home now presented with slightly worsened hypoxia and ABG showed worsening hypercarbia Trach changed to cuffed 6 Shiley I have reviewed ventilator settings and repeat ABG which showed over ventilation at this time. Will decrease tidal volume to 400 increase PEEP to 8 and decrease rate to 16 Repeat ABG ordered Chest x-ray done was not concerning for pneumonia and patient is afebrile with normal procalcitonin level all pointing against ammonia. Patient was started on empiric antibiotics and cultures have been sent. I will check a sputum culture. Patient was recently diagnosed with tracheitis and started on ciprofloxacin. Will also check COVID RSV and flu PCR Patient may have atelectasis since patient is morbidly obese. Will check CT scan of the chest to further evaluate. Also check CT of neck to rule out any other complications (2) Mucus plug in respiratory tract: Code(s): T17.998A - Other foreign object in respiratory tract, part unspecified causing other injury, initial encounter Status: Acute Assessment and Plan: Status post suctioning by EMS. No other issues since then. Minimal secretions now. (3) Chronic obstructive pulmonary disease: Code(s): J44.9 - Chronic obstructive pulmonary disease, unspecified Status: Acute Assessment and Plan: Not in exacerbation. Bronchodilators ordered. (4) Stenosis of trachea: Code(s): J39.8 - Other specified diseases of upper respiratory tract Status: Acute Assessment and Plan: Patient has chronic tracheostomy and normally has a cuffed size 6 trach. Trach was switched to cuffed 6 Shiley in the ER. (5) Confusion: Code(s): R41.0 - Disorientation, unspecified Status: Acute Assessment and Plan: Patient has had episodes of confusion at home which has been associated with hypoxia as per reports from outpatient visit. Patient also was found to be hypercarbic and with respiratory acidosis. Check head CT to rule out any other abnormality Ventilation to be adjusted as above Check ammonia Currently sedated and will wean off sedation Plan DVT prophylaxis -continue Eliquis Stress ulcer prophylaxis -Protonix Nutrition -insert NG tube and will start tube feeding Code Status - Full Code Total Critical Care Time - 40 minutes Due to a high probability of clinically significant, life threatening deterioration, the patient required my highest level of preparedness to intervene emergently and I personally spent this critical care time directly and personally managing the patient. This critical care time included obtaining a history; examining the patient; pulse oximetry; ordering and review of studies; arranging urgent treatment with development of a management plan; evaluation of patient's response to treatment; frequent reassessment; and discussions with other providers. It was exclusive of separately billable procedures and treating other patients and teaching time. Please see Assessment and Plan section and the rest of the note for further information on patient assessment and treatment Abrasive Grader Consult Note Consult date: 12/25/23 Reason for consult: He acute on chronic respiratory failure HPI: Laith Chavez is a 43 year old male with past medical history off tracheal stenosis with chronic tracheostomy, chronic respiratory failure on 6 L via trach collar, obesity hypoventilation syndrome, chronic obstructive pulmonary disease, hypertension, depression, anxiety, and history of DVT on chronic anticoagulation who presented
[2023-12-25 09:35] LABS: Alveolar/Arterial O2 Gradient 165.4 mmHg; Base Excess ABG 15.5 mEq/l (+/-2.0); Fractional Inspired Oxygen 50 %; Oxygen Content ABG 13.3 %vol (16.0-22.0); Oxygen Saturation ABG 98.6 % (95.0-100.0); Oxyhemoglobin 98.8 % THb (90.0-100.0); PCO2 ABG 56.9 mmHg (35.0-45.0); PO2 ABG 127.1 mmHg (80.0-100.0); PO2 FiO2 Ratio Arterial Blood 2.54 %; Total Hemoglobin 9.4 g/dL (12.0-18.0); pH ABG 7.476 (7.350-7.450)
[2023-12-25 09:37] LABS: Site Drawn RIGHT RADIAL
[2023-12-25 09:38] LABS: Arterial Blood Gas PEEP 8 cmH2O; Arterial Blood Gas Vent Mode CMV; Arterial Blood Gas Ventilator rate 16 /MIN; Device VENTILATOR
[2023-12-25 09:39] LABS: Arterial Blood Gas Tidal Volume 400 ml
[2023-12-25 09:40] LABS: Ammonia 11 umol/L (9-30)
[2023-12-25] MEDS: PROPOFOL IV EMULSION 100 ML 14.68 MG IV CONT (13:24)
--- NOTE | 2023-12-25 16:36 | PC.NURSE ---
Dr Russell, patient's PCP, called [place] [facility]. [facility] is hopeful a pulmonology consult can be ordered for patient due to patient being hypercapnic resulting multiple recent admissions. Patient's mother called previously today with similar concerns. Patient's mother and patient's PCP asked what patient home BiPAP settings are, who initiated BiPAP and who is adjusting patient settings. Patient's mother is unsure of settings but provided me with a phone number for the person who adjusts patient's home BiPAP settings. His name is Stan Gardner phone number [phone]. Stan unsure of settings as he does not have his files with him at this time. Unsure of who ordered BiPAP as well. Dr. Russell also unsure of BiPAP settings and who ordered it. [facility] was sent home from [facility] with BiPAP and settings. Dr. Russell encouraged to discuss this with Dr. Cummings tomorrow. Stan to reach out tomorrow with ordering physician and settings info. Dr. Cummings notified.
[2023-12-25] MEDS: LACTATED RINGERS 1,000 ML 500 ML IV CONT (17:04)
[2023-12-25] MEDS: AZITHROMYCIN 500 MG/NS 250 ML 500 MG/250 ML BAG 250 MG IVPB (17:04)
[2023-12-25] MEDS: LACTATED RINGERS 1,000 ML 75 ML IV CONT (20:00)
[2023-12-26] VITALS (33 sets, daily range): BP systolic 129–168; BP diastolic 66–100; PULSE 62–111; RESP 12–23; TEMP 37.2–37.6; O2SAT 93–100
[2023-12-26] MEDS: PROPOFOL IV EMULSION 100 ML 25.68 MG IV CONT (02:14)
[2023-12-26 04:17] LABS: Hematocrit 27.3 % (42.0-52.0); Hemoglobin 8.3 g/dL (14.0-18.0); Immature Platelet Fraction Pct 6.4 % (0.9-11.2); Mean Corpuscular HGB Conc 30.4 g/dl (32-36); Mean Corpuscular Hemoglobin 30.9 pg (26-34); Mean Corpuscular Volume 101.5 fl (80-100); Mean Platelet Volume 10.6 fl (7.4-10.4); Platelet Count Result 151 k/mm3 (150-375); Red Blood Count 2.69 M/mm3 (4.6-6.20); Red Cell Distribution Width 14.3 % (11.5-14.5); White Blood Count 7.8 K/mm3 (4.5-10.0)
[2023-12-26 04:30] LABS: Alanine Aminotransferase 16 U/L (6-50); Albumin Level 3.4 g/dL (3.5-5.1); Alkaline Phosphatase 48 U/L (38-126); Aspartate Amino Transferase 25 U/L (17-59); Bilirubin,Total 0.2 mg/dL (0.2-1.3); Blood Urea Nitrogen 28 mg/dL (9-20); Calcium 8.4 mg/dL (8.4-10.2); Carbon Dioxide > 40 mmol/L (22-30); Chloride 95 mmol/L (98-107); Estimated CRCL calculation 156 ml/min; Estimated Glomerular Filt Rate > 60; Glucose 83 mg/dL (65-110); Magnesium 1.9 mg/dL (1.6-2.3); Potassium 3.6 mmol/L (3.4-5.0); Sodium 140 mmol/L (137-145)
[2023-12-26 05:24] LABS: Alveolar/Arterial O2 Gradient 59.7 mmHg; Base Excess ABG 14.5 mEq/l (+/-2.0); Carboxyhemoglobin 0.4 % THb (0-2.0); Fractional Inspired Oxygen 30 %; HCO3 ABG 40.4 mEq/l (22.0-26.0); Methemoglobin ABG 0.1 %THb (0-1.5); Oxygen Content ABG 12.4 %vol (16.0-22.0); Oxygen Saturation ABG 96.3 % (95.0-100.0); Oxyhemoglobin 95.7 % THb (90.0-100.0); PO2 ABG 83.5 mmHg (80.0-100.0); PO2 FiO2 Ratio Arterial Blood 2.78 %; Reduced Hemoglobin 3.8 %THb (0-5.0); Total Hemoglobin 9.1 g/dL (12.0-18.0); pH ABG 7.445 (7.350-7.450)
[2023-12-26 05:29] LABS: Arterial Blood Gas Vent Mode CMV; Arterial Blood Gas Ventilator rate 12 /MIN; Device VENTILATOR; Modified Allen's Test Pass; PCO2 ABG 60.2 mmHg (35.0-45.0); Site Drawn LEFT RADIAL
[2023-12-26 05:30] LABS: Arterial Blood Gas PEEP 10 cmH2O; Arterial Blood Gas Tidal Volume 350 ml
[2023-12-26] MEDS: PROPOFOL IV EMULSION 100 ML 14.68 MG IV CONT (06:10)
--- NOTE | 2023-12-26 06:44 | PC.NURSE ---
entered room and NG tube was found in bed. Pt was unsure how tube was removed. Attempted to reinsert. While the tube was in the nare, the patient shook his head no repeatedly and asked why the tube was necessary. Explained the need to receive medication and to decompress stomach while on the ventilaotr. Pt then refused tube mouthing. I don't need it. Pt mental Status assessed and he is Alert and Oriented x 4. Will notify provider.
[2023-12-26] MEDS: DEXTROSE 5%/0.45% SOD CHL 1,000 ML 50 ML IV CONT (07:51)
[2023-12-26] MEDS: POTASSIUM CHLORIDE INJ 40 MEQ in SODIUM CHLORIDE 0.9% IV 500 ML 130 MEQ IVPB (08:05)
--- NOTE | 2023-12-26 08:39 | WPDINTPN ---
Progress Note: A&P Assessment and Plan (1) Acute on chronic respiratory failure with hypoxia and hypercapnia: Code(s): J96.21 - Acute and chronic respiratory failure with hypoxia; J96.22 - Acute and chronic respiratory failure with hypercapnia Status: Acute Assessment and Plan: Patient has chronic respiratory failure secondary to tracheal stenosis status was tracheostomy. He is on 3-5 L of oxygen at home now presented with slightly worsened hypoxia and ABG showed worsening hypercarbia Trach changed to cuffed 6 Shiley Current ventilator settings reviewed ABG reviewed Chest x-ray done was not concerning for pneumonia and patient is afebrile with normal procalcitonin level all pointing against pneumonia.. Patient was started on empiric antibiotics and blood and sputum cultures have been sent. Patient was recently diagnosed with tracheitis and started on ciprofloxacin. Negative COVID RSV and flu PCR Patient may have atelectasis since patient is morbidly obese. CT scan of the neck and chest showed IMPRESSION: 1. Severe tracheal stenosis. 2. Mild multifocal pneumonia. 3. Complete collapse of left lung lower lobe. 4. 12 mm right middle lobe pulmonary nodule, which may be infection or malignancy. Noncontrast low-dose chest CT is recommended in 3 months. Left lower lobe collapse appears atelectasis Will continue course of antibiotics Peep was increased to help with atelectasis Consult pulmonary (2) Mucus plug in respiratory tract: Code(s): T17.998A - Other foreign object in respiratory tract, part unspecified causing other injury, initial encounter Status: Acute Assessment and Plan: Status post suctioning by EMS. No other issues since then. Minimal secretions now. (3) Chronic obstructive pulmonary disease: Code(s): J44.9 - Chronic obstructive pulmonary disease, unspecified Status: Acute Assessment and Plan: Not in exacerbation. Bronchodilators ordered. (4) Stenosis of trachea: Code(s): J39.8 - Other specified diseases of upper respiratory tract Status: Acute Assessment and Plan: Patient has chronic tracheostomy and normally has a cuffed size 6 trach. Trach was switched to cuffed 6 Shiley in the ER. (5) Confusion: Code(s): R41.0 - Disorientation, unspecified Status: Acute Assessment and Plan: Patient has had episodes of confusion at home which has been associated with hypoxia as per reports from outpatient visit. Patient also was found to be hypercarbic and with respiratory acidosis. Negative head CT for any acute abnormality Ventilation to be adjusted as above Normal ammonia Improved and patient now is off of sedation (6) Dysphagia: Code(s): R13.10 - Dysphagia, unspecified Status: Acute Assessment and Plan: Plan to wean patient off the ventilator today and evaluate swallow. Patient Brett despite tracheostomy eats regular food. NG tube was placed in anticipation of starting tube feeds were patient pulled out and then refused nurses to re-attempt reinserting NG tube. Plan DVT prophylaxis -continue Eliquis Stress ulcer prophylaxis -Protonix Nutrition -patient pulled out his NG tube. Plan to wean him off the ventilator and evaluate swallow. Code Status - Full Code Total Critical Care Time - 30 minutes Due to a high probability of clinically significant, life threatening deterioration, the patient required my highest level of preparedness to intervene emergently and I personally spent this critical care time directly and personally managing the patient. This critical care time included obtaining a history; examining the patient; pulse oximetry; ordering and review of studies; arranging urgent treatment with development of a management plan; evaluation of patient's response to treatment; frequent reassessment; and discussions with other providers. It was exclusive of separately billable procedures and treating other patients and tea
[2023-12-26 08:50] LABS: Alveolar/Arterial O2 Gradient 69.5 mmHg; Base Excess ABG 13.3 mEq/l (+/-2.0); Fractional Inspired Oxygen 30 %; HCO3 ABG 38.3 mEq/l (22.0-26.0); Oxygen Content ABG 12.5 %vol (16.0-22.0); Oxygen Saturation ABG 96.7 % (95.0-100.0); PCO2 ABG 52.3 mmHg (35.0-45.0); PO2 FiO2 Ratio Arterial Blood 2.77 %; Total Hemoglobin 9.2 g/dL (12.0-18.0); pH ABG 7.483 (7.350-7.450)
[2023-12-26 08:52] LABS: Device VENTILATOR; Modified Allen's Test Pass; Site Drawn LEFT RADIAL
[2023-12-26 08:55] LABS: Arterial Blood Gas PEEP 8 cmH2O; Arterial Blood Gas Pressure Support 5 cmH2O; Arterial Blood Gas Vent Mode SPONTANEOUS
--- NOTE | 2023-12-26 09:39 | P.CDI_ITS ---
CDI Query Clarification Request Patient with a BMI of 44.1 please provide a diagnosis to accompany this finding: * Overweight * Obesity * Morbid Obesity * Other/Unknown
--- NOTE | 2023-12-26 09:39 | WPDCDIQUERY2 ---
CDI Query Clarification Request Patient with a BMI of 44.1 please provide a diagnosis to accompany this finding: Overweight Obesity Morbid Obesity Other/Unknown
[2023-12-26] MEDS: DIVALPROEX SODIUM DR 250 MG TABEC PO ×3 (09:40→17:35)
[2023-12-26] MEDS: APIXABAN 5 MG TABLET PO ×2 (09:40→20:25)
[2023-12-26] MEDS: FERROUS SULFATE 325 MG TABLET DR PO (09:40)
[2023-12-26] MEDS: FOLIC ACID 1 MG TABLET PO (09:40)
[2023-12-26] MEDS: METOPROLOL TARTRATE 25 MG TABLET PO ×2 (09:40→20:25)
[2023-12-26] MEDS: PANTOPRAZOLE 40 MG TABLET PO (09:40)
[2023-12-26] MEDS: busPIRone HCL 10 MG TABLET PO ×3 (09:40→17:35)
--- NOTE | 2023-12-26 09:54 | PCSTNOTE ---
Please refer to the Bedside Swallow Evaluation in the EMR. Please note, silent aspiration cannot be ruled out at bedside.
--- NOTE | 2023-12-26 11:03 | PCFNICU ---
ICU Rounding Note: Pt current nutrition is Regular. Last recorded weight is 135.5 kg, up from 127.4 kg on admit. Bowel Motility: No BM reported. Labs Reviewed:BUN 28, Hct 27.3,Hgb 8.3, Alb 3.4 Meds Noted:Protonix, Folic Acid, Lopressor, Rocephin. Skin: WNL Additional Notes: Patient has chronic tracheostomy. Eating regular diet at home. Bedside swallow eval today-passed recommending regular diet. Catheter Finisher And Inspector has advanced diet orders to regular. Agree with diet orders. Following daily in ICU rounds. Will monitor, weight, labs, skin, oral intake, meds every 5 days.
[2023-12-26] MEDS: IPRATROPIUM 0.5 MG/ALBUTEROL SULFATE 2.5 MG AMPUL.NEB 3 ML INHALATION ×2 (13:07→19:51)
--- NOTE | 2023-12-26 13:47 | PM.CNPUL ---
Assessment and Plan Assessment and plan (1) Mucus plug in respiratory tract: Code(s): T17.998A - Other foreign object in respiratory tract, part unspecified causing other injury, initial encounter Status: Acute (2) Acute on chronic respiratory failure with hypoxia and hypercapnia: Code(s): J96.21 - Acute and chronic respiratory failure with hypoxia; J96.22 - Acute and chronic respiratory failure with hypercapnia Status: Acute (3) Chronic respiratory failure with hypoxia: Code(s): J96.11 - Chronic respiratory failure with hypoxia Status: Acute (4) Tracheostomy dependent: Code(s): Z93.0 - Tracheostomy status Status: Acute (5) COPD (chronic obstructive pulmonary disease): Code(s): J44.9 - Chronic obstructive pulmonary disease, unspecified Status: Acute (6) Pulmonary atelectasis: Code(s): J98.11 - Atelectasis Status: Acute Assessment and Plan: This 43-year-old man with a history of obesity and a permanent tracheostomy related to severe tracheal stenosis, with frequent hospitalizations due to upper airway obstruction, presented with shortness of breath. Diagnostic studies have shown left lower lobe atelectasis. Reportedly, the patient improved following suctioning of mucus plaque. Notably, the patient has a small-sized tracheostomy tube, size 6. The left lower lobe collapse is most likely related to mucus plugging and retention of secretions. The patient is currently receiving antibiotics with significant improvement. Recommendation: The appropriate tracheostomy tube size for this adult male patient with morbid obesity would be somewhere between 7-9. Given the patient currently has a relatively small tracheostomy tube, size 6, I recommend exchanging it for a size 7 or 8. Continue with frequent suctioning and nebulized short-acting bronchodilators t.i.d. while awake. Keep the patient on the ventilator for tonight and repeat the chest x-ray in the morning. History of Present Illness History of Present Illness Consult date: 12/26/23 Chief complaint: Acute hypercapnic respiratory failure Narrative: This 43-year-old man was brought into the emergency room because of shortness of breath at home. The patient has history of a severe tracheal stenosis status post permanent tracheostomy. The patient was recently hospitalized at [facility] for a similar complaint. Upon arrival the patient was unable to provide details about his illness. Reportedly a mucus plug was removed by EMS. Patient was transferred to the intensive care unit where he was initially placed on mechanical ventilation. Chest CT showed complete collapse of the left lower lobe. The patient is currently on antibiotics. Upon questioning he stated that he is doing better. Currently is off the ventilator. His secretions have not increased lately. He has got a permanent tracheostomy tube size 6. Past medical history is also significant for hypertension depression anxiety history of DVT on chronic anticoagulation. As far as tracheal stenosis this was attributed to previous endotracheal intubation. The patient is former smoker, quit approximately more than a year ago after and with 18-20 year habit of smoking a pack per day. He carries a diagnosis of COPD although no pulmonary function testing is available. Patient is reportedly on trilogy ventilator at home. 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
--- NOTE | 2023-12-26 17:34 | PM.IMPN ---
Progress Note: A&P Assessment and Plan (1) Acute on chronic respiratory failure with hypoxia and hypercapnia: Code(s): J96.21 - Acute and chronic respiratory failure with hypoxia; J96.22 - Acute and chronic respiratory failure with hypercapnia Status: Acute Assessment and Plan: Patient has chronic respiratory failure secondary to tracheal stenosis status was tracheostomy. He is on 3-5 L of oxygen at home now presented with slightly worsened hypoxia and ABG showed worsening hypercarbia Trach changed to cuffed 6 Shiley Current ventilator settings reviewed ABG reviewed Chest x-ray done was not concerning for pneumonia and patient is afebrile with normal procalcitonin level all pointing against pneumonia.. Patient was started on empiric antibiotics and blood and sputum cultures have been sent. Patient was recently diagnosed with tracheitis and started on ciprofloxacin. Negative COVID RSV and flu PCR Patient may have atelectasis since patient is morbidly obese. CT scan of the neck and chest showed IMPRESSION: 1. Severe tracheal stenosis. 2. Mild multifocal pneumonia. 3. Complete collapse of left lung lower lobe. 4. 12 mm right middle lobe pulmonary nodule, which may be infection or malignancy. Noncontrast low-dose chest CT is recommended in 3 months. Left lower lobe collapse appears atelectasis Will continue course of antibiotics Peep was increased to help with atelectasis Consult pulmonary (2) Mucus plug in respiratory tract: Code(s): T17.998A - Other foreign object in respiratory tract, part unspecified causing other injury, initial encounter Status: Acute Assessment and Plan: Status post suctioning by EMS. No other issues since then. Minimal secretions now. (3) Chronic obstructive pulmonary disease: Code(s): J44.9 - Chronic obstructive pulmonary disease, unspecified Status: Acute Assessment and Plan: Not in exacerbation. Bronchodilators ordered. (4) Stenosis of trachea: Code(s): J39.8 - Other specified diseases of upper respiratory tract Status: Acute Assessment and Plan: Patient has chronic tracheostomy and normally has a cuffed size 6 trach. Trach was switched to cuffed 6 Shiley in the ER. (5) Confusion: Code(s): R41.0 - Disorientation, unspecified Status: Acute Assessment and Plan: Patient has had episodes of confusion at home which has been associated with hypoxia as per reports from outpatient visit. Patient also was found to be hypercarbic and with respiratory acidosis. Negative head CT for any acute abnormality Ventilation to be adjusted as above Normal ammonia Improved and patient now is off of sedation (6) Dysphagia: Code(s): R13.10 - Dysphagia, unspecified Status: Acute Assessment and Plan: Plan to wean patient off the ventilator today and evaluate swallow. Patient Brett despite tracheostomy eats regular food. NG tube was placed in anticipation of starting tube feeds were patient pulled out and then refused nurses to re-attempt reinserting NG tube. Subjective Date/time seen: 12/26/23 17:34 Interval history: Unable to provide any history. Patient is currently resting well. Review of Systems Review of Systems: Unable to be obtained as he is currently on sedation due to restlessness on the ventilator. ROS unobtainable: Yes unobtainable due to endotracheal tube, unobtainable due to medical condition and unobtainable due to mental status Exam Narrative: General: Pt is sedated, intubated and on mechanical ventilation Lungs/Chest: Trachea central Coarse BS B/L, No crackles or wheezing. Tracheostomy is in place Cardiac: RRR. Normal S1 S2. No murmurs Circulation: Pedal pulses are intact and symmetrical. Abdomen: Decreased bowel sounds. Obese. Soft. NT. ND. Extremities: No clubbing, cyanosis or edema. Warm : Pfeiffer in place Neurologic: Unable to assess fully due to sedation and tracheostomy. Moves al
[2023-12-26] MEDS: AZITHROMYCIN 500 MG/NS 250 ML 500 MG/250 ML BAG 250 MG IVPB (17:35)
[2023-12-26 20:31] LABS: Triglycerides 256 mg/dL (<150)
[2023-12-27] VITALS (29 sets, daily range): BP systolic 132–152; BP diastolic 62–98; PULSE 60–98; RESP 12–22; TEMP 36.2–37.1; O2SAT 92–100
[2023-12-27] MEDS: IPRATROPIUM 0.5 MG/ALBUTEROL SULFATE 2.5 MG AMPUL.NEB 3 ML INHALATION ×4 (02:49→20:29)
[2023-12-27 04:18] LABS: Hematocrit 28.2 % (42.0-52.0); Hemoglobin 8.5 g/dL (14.0-18.0); Immature Platelet Fraction Pct 5.4 % (0.9-11.2); Mean Corpuscular HGB Conc 30.1 g/dl (32-36); Mean Corpuscular Hemoglobin 30.5 pg (26-34); Mean Corpuscular Volume 101.1 fl (80-100); Mean Platelet Volume 10.6 fl (7.4-10.4); Platelet Count Result 161 k/mm3 (150-375); Red Blood Count 2.79 M/mm3 (4.6-6.20); Red Cell Distribution Width 14.2 % (11.5-14.5); White Blood Count 4.7 K/mm3 (4.5-10.0)
[2023-12-27 04:26] LABS: Alanine Aminotransferase 43 U/L (6-50); Albumin Level 3.5 g/dL (3.5-5.1); Alkaline Phosphatase 51 U/L (38-126); Anion Gap 6 mmol/L (4-12); Aspartate Amino Transferase 34 U/L (17-59); Bilirubin,Total 0.2 mg/dL (0.2-1.3); Blood Urea Nitrogen 20 mg/dL (9-20); Calcium 8.5 mg/dL (8.4-10.2); Carbon Dioxide 37 mmol/L (22-30); Chloride 98 mmol/L (98-107); Estimated CRCL calculation 186 ml/min; Estimated Glomerular Filt Rate > 60; Glucose 93 mg/dL (65-110); Magnesium 1.8 mg/dL (1.6-2.3); Potassium 3.9 mmol/L (3.4-5.0); Sodium 141 mmol/L (137-145)
[2023-12-27 05:33] LABS: Alveolar/Arterial O2 Gradient 100.1 mmHg; Base Excess ABG 11.5 mEq/l (+/-2.0); Carboxyhemoglobin 0.3 % THb (0-2.0); Fractional Inspired Oxygen 40 %; HCO3 ABG 37.8 mEq/l (22.0-26.0); Methemoglobin ABG 0.1 %THb (0-1.5); Oxygen Content ABG 12.3 %vol (16.0-22.0); Oxygen Saturation ABG 98.1 % (95.0-100.0); PO2 ABG 114.6 mmHg (80.0-100.0); PO2 FiO2 Ratio Arterial Blood 2.87 %; Reduced Hemoglobin 1.6 %THb (0-5.0); Total Hemoglobin 8.8 g/dL (12.0-18.0); pH ABG 7.408 (7.350-7.450)
[2023-12-27 05:36] LABS: Device BIPAP; Modified Allen's Test Pass; PCO2 ABG 61.3 mmHg (35.0-45.0); Site Drawn LEFT RADIAL
[2023-12-27 05:37] LABS: Expiratory Pressure 8 cmH2O; Inspiratory Pressure 25 cmH2O
[2023-12-27] MEDS: DIVALPROEX SODIUM DR 250 MG TABEC PO ×3 (08:43→17:01)
[2023-12-27] MEDS: PANTOPRAZOLE 40 MG TABLET PO (08:43)
[2023-12-27] MEDS: METOPROLOL TARTRATE 25 MG TABLET PO ×2 (08:43→20:58)
[2023-12-27] MEDS: FERROUS SULFATE 325 MG TABLET DR PO (08:43)
[2023-12-27] MEDS: APIXABAN 5 MG TABLET PO ×2 (08:43→20:58)
[2023-12-27] MEDS: busPIRone HCL 10 MG TABLET PO ×3 (08:43→17:01)
[2023-12-27] MEDS: FOLIC ACID 1 MG TABLET PO (08:43)
[2023-12-27] MEDS: LORazepam (*CRX) 0.5 MG TABLET PO ×2 (13:18→18:43)
--- NOTE | 2023-12-27 14:18 | PC.NURSE ---
This patient, Laith Chavez, was received from ICU-5 on 12/27/23 at 1400. Patient/family oriented to unit policies and routines
--- NOTE | 2023-12-27 15:13 | PM.PNPUL ---
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 Diagnostic studies have shown left lower lobe atelectasis. Reportedly, the patient improved following suctioning of mucus plaque. Notably, the patient has a small-sized tracheostomy tube, size 6. The left lower lobe collapse is most likely related to mucus plugging and retention of secretions. The patient was transferred out of ICU and still receiving antibiotics. He had no evidence of lower respiratory tract infection as his WBC was not elevated and the chest imaging studies have shown chest left lung atelectasis. Plan: I would discontinue antibiotics at this point continue with BiPAP support at night. The patient needs to bring his home ventilator to use during this hospital stay. Also to measure oxyhemoglobin saturation at night on his home ventilator. At the patient's request will order a concentrator with a higher oxygen flow. Will continue to monitor the patient's condition. (2) Mucus plug in respiratory tract: Code(s): T17.998A - Other foreign object in respiratory tract, part unspecified causing other injury, initial encounter Status: Acute (3) Acute on chronic respiratory failure with hypoxia and hypercapnia: Code(s): J96.21 - Acute and chronic respiratory failure with hypoxia; J96.22 - Acute and chronic respiratory failure with hypercapnia Status: Acute (4) Chronic respiratory failure with hypoxia: Code(s): J96.11 - Chronic respiratory failure with hypoxia Status: Acute (5) Tracheostomy dependent: Code(s): Z93.0 - Tracheostomy status Status: Acute (6) Stenosis of trachea: Code(s): J39.8 - Other specified diseases of upper respiratory tract Status: Acute Subjective Date/time seen: 12/27/23 15:13 Interval history: Patient has no new respiratory symptoms. He stated breathing is better. Was transferred out of the ICU. Chest x-ray done early today showed reinflation of left lower lobe. Patient currently on antibiotics. Review of Systems Review of Systems: All systems reviewed & are unremarkable except as noted in HPI and below (HPI and below) Exam Narrative: GENERAL APPEARANCE: Well developed, well nourished, alert and cooperative, morbidly obese and appears to be in no acute distress SKIN: Inspection of the skin reveals no rashes, ulcerations or petechiae. HEENT: Sclerae anicteric and conjunctivae pink and moist. Extraocular movements were intact and pupils were equal, round, and reactive to light. The oral mucosa, hard and soft palate, tongue and posterior pharynx were normal. NECK: Supple. There was no thyroid enlargement, and no tenderness, or masses were felt. Tracheostomy in place stoma looks clean LUNGS: Auscultation of the lungs revealed normal breath sounds without any other adventitious sounds or rubs. Somewhat decreased breath sounds at left base posteriorly CARDIAC: There was a regular rate and rhythm without any murmurs, gallops, rubs. ABDOMEN: Soft and nontender with normal bowel sounds. There was no organomegaly. LYMPH NODES: No lymphadenopathy was appreciated in the neck. EXTREMITIES: No cyanosis, clubbing or edema. NEUROLOGIC: Alert and oriented x 3. Normal affect. Objective Data Vital Signs Vital Signs: Vital Signs - 24 hr 12/26/23 16:00 12/26/23 16:00 12/26/23 16:00 Temperature 37.3 C Pulse Rate 85 78 Respiratory Rate 18 Blood Pressure 139/67 Pulse Oximetry 97 97 Oxygen Delivery High Flow Therapy with Tr Oxygen Flow Rate 25 Fraction of Inspired Oxygen 35 12/26/23 18:00 12/26/23 19:52 12/26/23 19:52 Temperature Pulse Rate 87 87 87 Respiratory
--- NOTE | 2023-12-27 15:30 | PM.IMPN ---
Progress Note: A&P Assessment and Plan (1) Acute on chronic respiratory failure with hypoxia and hypercapnia: Code(s): J96.21 - Acute and chronic respiratory failure with hypoxia; J96.22 - Acute and chronic respiratory failure with hypercapnia Status: Acute Assessment and Plan: Patient has chronic respiratory failure secondary to tracheal stenosis status was tracheostomy. He is on 3-5 L of oxygen at home now presented with slightly worsened hypoxia and ABG showed worsening hypercarbia Trach changed to cuffed 6 Shiley Current ventilator settings reviewed ABG reviewed Chest x-ray done was not concerning for pneumonia and patient is afebrile with normal procalcitonin level all pointing against pneumonia. Downgraded from ICU to floor Antibiotic discontinued Patient needs a home ventilator to use during this hospital stay Measure oxyhemoglobin saturation at night on his home ventilator Patient requesting concentrator with a high oxygen flow CT scan of the neck and chest showed IMPRESSION: 1. Severe tracheal stenosis. 2. Mild multifocal pneumonia. 3. Complete collapse of left lung lower lobe. 4. 12 mm right middle lobe pulmonary nodule, which may be infection or malignancy. Noncontrast low-dose chest CT is recommended in 3 months. Left lower lobe collapse appears atelectasis Will continue course of antibiotics Peep was increased to help with atelectasis Consult pulmonary (2) Mucus plug in respiratory tract: Code(s): T17.998A - Other foreign object in respiratory tract, part unspecified causing other injury, initial encounter Status: Acute Assessment and Plan: Status post suctioning by EMS. No other issues since then. Minimal secretions now. (3) Chronic obstructive pulmonary disease: Code(s): J44.9 - Chronic obstructive pulmonary disease, unspecified Status: Acute Assessment and Plan: Not in exacerbation. Bronchodilators ordered. (4) Stenosis of trachea: Code(s): J39.8 - Other specified diseases of upper respiratory tract Status: Acute Assessment and Plan: Patient has chronic tracheostomy and normally has a cuffed size 6 trach. Trach was switched to cuffed 6 Shiley in the ER. (5) Confusion: Code(s): R41.0 - Disorientation, unspecified Status: Acute Assessment and Plan: Patient has had episodes of confusion at home which has been associated with hypoxia as per reports from outpatient visit. Patient also was found to be hypercarbic and with respiratory acidosis. Negative head CT for any acute abnormality Ventilation to be adjusted as above Normal ammonia Improved and patient now is off of sedation (6) Dysphagia: Code(s): R13.10 - Dysphagia, unspecified Status: Acute Subjective Date/time seen: 12/27/23 15:30 Interval history: Patient denies any respiratory distress. Patient antibiotic has been discontinued. Patient is currently in the floor downgraded from ICU. Review of Systems Review of Systems: Unable to be obtained as he is currently on sedation due to restlessness on the ventilator. ROS unobtainable: Yes unobtainable due to endotracheal tube, unobtainable due to medical condition and unobtainable due to mental status Exam Narrative: General: Pt is sedated, intubated and on mechanical ventilation Lungs/Chest: Trachea central Coarse BS B/L, No crackles or wheezing. Tracheostomy is in place Cardiac: RRR. Normal S1 S2. No murmurs Circulation: Pedal pulses are intact and symmetrical. Abdomen: Decreased bowel sounds. Obese. Soft. NT. ND. Extremities: No clubbing, cyanosis or edema. Warm : Pfeiffer in place Neurologic: Unable to assess fully due to sedation and tracheostomy. Moves all 4 extremities commands PERRL Objective Data Vital Signs Vital Signs: Vital Signs - 24 hr 12/26/23 16:00 12/26/23 16:00 12/26/23 16:00 Temperature 99.2 F Pulse Rate 85 78 Respiratory Rate 18 Blood Pressure 139/67
[2023-12-28] VITALS (36 sets, daily range): BP systolic 134–169; BP diastolic 76–84; PULSE 60–98; RESP 15–24; TEMP 36.2–37; O2SAT 86–100
[2023-12-28] MEDS: IPRATROPIUM 0.5 MG/ALBUTEROL SULFATE 2.5 MG AMPUL.NEB 3 ML INHALATION ×4 (02:31→20:49)
[2023-12-28 05:30] LABS: Hematocrit 27.8 % (42.0-52.0); Hemoglobin 8.5 g/dL (14.0-18.0); Mean Corpuscular HGB Conc 30.6 g/dl (32-36); Mean Corpuscular Hemoglobin 30.7 pg (26-34); Mean Corpuscular Volume 100.4 fl (80-100); Mean Platelet Volume 10.6 fl (7.4-10.4); Platelet Count Result 172 k/mm3 (150-375); Red Blood Count 2.77 M/mm3 (4.6-6.20); Red Cell Distribution Width 14.2 % (11.5-14.5); White Blood Count 5.7 K/mm3 (4.5-10.0)
[2023-12-28 05:41] LABS: Alanine Aminotransferase 35 U/L (6-50); Albumin Level 3.6 g/dL (3.5-5.1); Alkaline Phosphatase 49 U/L (38-126); Anion Gap 5 mmol/L (4-12); Aspartate Amino Transferase 23 U/L (17-59); Bilirubin,Total 0.2 mg/dL (0.2-1.3); Blood Urea Nitrogen 19 mg/dL (9-20); Calcium 8.6 mg/dL (8.4-10.2); Carbon Dioxide 36 mmol/L (22-30); Chloride 99 mmol/L (98-107); Estimated CRCL calculation 183 ml/min; Estimated Glomerular Filt Rate > 60; Glucose 98 mg/dL (65-110); Magnesium 1.9 mg/dL (1.6-2.3); Potassium 4.1 mmol/L (3.4-5.0); Sodium 140 mmol/L (137-145)
[2023-12-28] MEDS: METOPROLOL TARTRATE 25 MG TABLET PO ×2 (08:38→21:33)
[2023-12-28] MEDS: LORazepam (*CRX) 0.5 MG TABLET PO (08:38)
[2023-12-28] MEDS: APIXABAN 5 MG TABLET PO ×2 (08:38→21:33)
[2023-12-28] MEDS: DIVALPROEX SODIUM DR 250 MG TABEC PO ×3 (08:39→17:17)
[2023-12-28] MEDS: FOLIC ACID 1 MG TABLET PO (08:39)
[2023-12-28] MEDS: PANTOPRAZOLE 40 MG TABLET PO (08:39)
[2023-12-28] MEDS: FERROUS SULFATE 325 MG TABLET DR PO (08:39)
[2023-12-28] MEDS: busPIRone HCL 10 MG TABLET PO ×3 (08:39→17:17)
--- NOTE | 2023-12-28 12:22 | PM.PNPUL ---
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 Diagnostic studies have shown left lower lobe atelectasis. Reportedly, the patient improved following suctioning of mucus plaque. Notably, the patient has a small-sized tracheostomy tube, size 6. The left lower lobe collapse is most likely related to mucus plugging and retention of secretions. The patient was transferred out of ICU and still receiving antibiotics. He had no evidence of lower respiratory tract infection as his WBC was not elevated and the chest imaging studies have shown just left lung atelectasis. patient is using home ventilator and on the last usage he had the following parameters: EPAP 8 respiratory rate 16 tidal volume 805 air leak 30 liters/minute, PIP 25, I/E ratio: 1/2.5 Plan: I would discontinue antibiotics. will proceed with a ApneaLink on home ventilator and current FiO2. Patient would like to get switched back to cuffless tracheostomy tube, of same size. this tracheostomy tube was recommended by his thoracic surgeon at [facility]. Patient indicated that he has an appointment with his thoracic surgeon regarding further management of his airway problem. anticipate DC home after tracheostomy tube exchange. (2) Mucus plug in respiratory tract: Code(s): T17.998A - Other foreign object in respiratory tract, part unspecified causing other injury, initial encounter Status: Acute (3) Acute on chronic respiratory failure with hypoxia and hypercapnia: Code(s): J96.21 - Acute and chronic respiratory failure with hypoxia; J96.22 - Acute and chronic respiratory failure with hypercapnia Status: Acute (4) Chronic respiratory failure with hypoxia: Code(s): J96.11 - Chronic respiratory failure with hypoxia Status: Acute (5) Tracheostomy dependent: Code(s): Z93.0 - Tracheostomy status Status: Acute (6) Stenosis of trachea: Code(s): J39.8 - Other specified diseases of upper respiratory tract Status: Acute Subjective Date/time seen: 12/28/23 12:22 Interval history: Patient has no new respiratory symptoms. He used own home ventilator last night. has no fever, and no change in tracheal secretions over the last day. Patient indicated that he would like to be switched back to cuffless tracheostomy tube. prior to this hospitalization he had been on cuffless at tracheostomy tube. Review of Systems Review of Systems: All systems reviewed & are unremarkable except as noted in HPI and below ( HPI and below) Exam Narrative: GENERAL APPEARANCE: Well developed, well nourished, alert and cooperative, morbidly obese and appears to be in no acute distress SKIN: Inspection of the skin reveals no rashes, ulcerations or petechiae. HEENT: Sclerae anicteric and conjunctivae pink and moist. Extraocular movements were intact and pupils were equal, round, and reactive to light. The oral mucosa, hard and soft palate, tongue and posterior pharynx were normal. NECK: Supple. There was no thyroid enlargement, and no tenderness, or masses were felt. Tracheostomy in place, stoma looks clean LUNGS: Auscultation of the lungs revealed normal breath sounds without any other adventitious sounds or rubs. Somewhat decreased breath sounds at left base posteriorly CARDIAC: There was a regular rate and rhythm without any murmurs, gallops, rubs. ABDOMEN: Soft and nontender with normal bowel sounds. There was no organomegaly. LYMPH NODES: No lymphadenopathy was appreciated in the neck. EXTREMITIES: No cyanosis, clubbing or edema. NEUROLOGIC: Alert and oriented x 3. Normal affect. Objective Data Vital Signs Vital Signs: Angi
--- NOTE | 2023-12-28 13:00 | PCNFU ---
Nutrition Follow-Up Complete: Inadequate Oral Intake a related to respiratory failure as evidenced by NPO. - Resolved Meet estimated nutritional needs. _ Progressing. Meeting needs with PO diet Goal: Pt current nutrition is Regular diet.. Nutrition recommendation: No new nutrition recommendations. Continue with regular diet. Last recorded weight is 131.6 kg. Bowel Motility: +1 BM 12/27/23 Labs Reviewed: Hgb 8.5, Hct 27.8, Cre 0.6 Meds Noted: Rocephin, protonix Skin: No skin issues Additional Notes: Passed swallow test and able to take regular textures and thin liquids. Intakes are 100% meals. Able to monitor every 5 days. Will monitor, weight, labs, skin, oral intake, meds every 5 days.
[2023-12-28] MEDS: AZITHROMYCIN 250 MG TABLET 500 MG PO (14:02)
[2023-12-28] MEDS: AMOXICILLIN/CLAVULANATE K 875-125 MG TAB 1 TABLET PO ×2 (14:02→21:33)
--- NOTE | 2023-12-28 15:27 | PCRCNOTE ---
I spoke with Dr. Snider and he would like the patient to discharge home with the current cuffed trach in place. The patient can have the trach replaced outpatient. The patient is followed by a thoracic surgeon in [place].
--- NOTE | 2023-12-28 15:35 | PM.IMPN ---
Progress Note: A&P Assessment and Plan (1) Acute on chronic respiratory failure with hypoxia and hypercapnia: Code(s): J96.21 - Acute and chronic respiratory failure with hypoxia; J96.22 - Acute and chronic respiratory failure with hypercapnia Status: Acute Assessment and Plan: Patient has chronic respiratory failure secondary to tracheal stenosis status was tracheostomy. He is on 3-5 L of oxygen at home now presented with slightly worsened hypoxia and ABG showed worsening hypercarbia Trach changed to cuffed 6 Shiley Current ventilator settings reviewed ABG reviewed Chest x-ray done was not concerning for pneumonia and patient is afebrile with normal procalcitonin level all pointing against pneumonia. Downgraded from ICU to floor Antibiotic discontinued Patient needs a home ventilator to use during this hospital stay Measure oxyhemoglobin saturation at night on his home ventilator Patient requesting concentrator with a high oxygen flow CT scan of the neck and chest showed IMPRESSION: 1. Severe tracheal stenosis. 2. Mild multifocal pneumonia. 3. Complete collapse of left lung lower lobe. 4. 12 mm right middle lobe pulmonary nodule, which may be infection or malignancy. Noncontrast low-dose chest CT is recommended in 3 months. Left lower lobe collapse appears atelectasis Will continue course of antibiotics Peep was increased to help with atelectasis Consult pulmonary (2) Mucus plug in respiratory tract: Code(s): T17.998A - Other foreign object in respiratory tract, part unspecified causing other injury, initial encounter Status: Acute Assessment and Plan: Status post suctioning by EMS. No other issues since then. Minimal secretions now. (3) Chronic obstructive pulmonary disease: Code(s): J44.9 - Chronic obstructive pulmonary disease, unspecified Status: Acute Assessment and Plan: Not in exacerbation. Bronchodilators ordered. (4) Stenosis of trachea: Code(s): J39.8 - Other specified diseases of upper respiratory tract Status: Acute Assessment and Plan: Patient has chronic tracheostomy and normally has a cuffed size 6 trach. Trach was switched to cuffed 6 Shiley in the ER. (5) Confusion: Code(s): R41.0 - Disorientation, unspecified Status: Acute Assessment and Plan: Patient has had episodes of confusion at home which has been associated with hypoxia as per reports from outpatient visit. Patient also was found to be hypercarbic and with respiratory acidosis. Negative head CT for any acute abnormality Ventilation to be adjusted as above Normal ammonia Improved and patient now is off of sedation (6) Dysphagia: Code(s): R13.10 - Dysphagia, unspecified Status: Acute Plan #Trach -change from cuffed to uncuffed trach - Follows with thoracic surgeon at [facility] regarding further management of his airway problem. Subjective Date/time seen: 12/28/23 15:35 Interval history: Patient is currently doing well. Patient wants to change from cuffed to uncuffed trach. running specialist will proceed with ApneaLink on home ventilator under current FiO2.Anticipate DC home after tracheostomy tube exchange. Review of Systems Review of Systems: Unable to be obtained as he is currently on sedation due to restlessness on the ventilator. ROS unobtainable: Yes unobtainable due to endotracheal tube, unobtainable due to medical condition and unobtainable due to mental status Exam Narrative: General: Pt is sedated, intubated and on mechanical ventilation Lungs/Chest: Trachea central Coarse BS B/L, No crackles or wheezing. Tracheostomy is in place Cardiac: RRR. Normal S1 S2. No murmurs Circulation: Pedal pulses are intact and symmetrical. Abdomen: Decreased bowel sounds. Obese. Soft. NT. ND. Extremities: No clubbing, cyanosis or edema. Warm : Pfeiffer in place Neurologic: Unable to assess fully due to sedation and trac
--- NOTE | 2023-12-28 16:34 | PM.DS ---
DS: Admitting Diagnosis Discharge Date 12/28/2023 Admitting Diagnosis Acute and chronic respiratory failure with hypercapnia DS: Discharge Diagnosis Discharge Diagnosis (1) Acute on chronic respiratory failure with hypoxia and hypercapnia: Code(s): J96.21 - Acute and chronic respiratory failure with hypoxia; J96.22 - Acute and chronic respiratory failure with hypercapnia Status: Acute Assessment and Plan: Patient has chronic respiratory failure secondary to tracheal stenosis status was tracheostomy. He is on 3-5 L of oxygen at home now presented with slightly worsened hypoxia and ABG showed worsening hypercarbia Trach changed to cuffed 6 Shiley Current ventilator settings reviewed ABG reviewed Chest x-ray done was not concerning for pneumonia and patient is afebrile with normal procalcitonin level all pointing against pneumonia. Downgraded from ICU to floor Antibiotic discontinued Patient needs a home ventilator to use during this hospital stay Measure oxyhemoglobin saturation at night on his home ventilator Patient requesting concentrator with a high oxygen flow CT scan of the neck and chest showed IMPRESSION: 1. Severe tracheal stenosis. 2. Mild multifocal pneumonia. 3. Complete collapse of left lung lower lobe. 4. 12 mm right middle lobe pulmonary nodule, which may be infection or malignancy. Noncontrast low-dose chest CT is recommended in 3 months. Left lower lobe collapse appears atelectasis Will continue course of antibiotics Peep was increased to help with atelectasis Consult pulmonary (2) Mucus plug in respiratory tract: Code(s): T17.998A - Other foreign object in respiratory tract, part unspecified causing other injury, initial encounter Status: Acute Assessment and Plan: Status post suctioning by EMS. No other issues since then. Minimal secretions now. (3) Chronic obstructive pulmonary disease: Code(s): J44.9 - Chronic obstructive pulmonary disease, unspecified Status: Acute Assessment and Plan: Not in exacerbation. Bronchodilators ordered. (4) Stenosis of trachea: Code(s): J39.8 - Other specified diseases of upper respiratory tract Status: Acute Assessment and Plan: Patient has chronic tracheostomy and normally has a cuffed size 6 trach. Trach was switched to cuffed 6 Shiley in the ER. (5) Confusion: Code(s): R41.0 - Disorientation, unspecified Status: Acute Assessment and Plan: Patient has had episodes of confusion at home which has been associated with hypoxia as per reports from outpatient visit. Patient also was found to be hypercarbic and with respiratory acidosis. 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 Diagnostic studies have shown left lower lobe atelectasis. Reportedly, the patient improved following suctioning of mucus plaque. Notably, the patient has a small-sized tracheostomy tube, size 6. The left lower lobe collapse is most likely related to mucus plugging and retention of secretions. The patient was transferred out of ICU and still receiving antibiotics. He had no evidence of lower respiratory tract infection as his WBC was not elevated and the chest imaging studies have shown just left lung atelectasis. patient is using home ventilator and on the last usage he had the following parameters: EPAP 8 respiratory rate 16 tidal volume 805 air leak 30 liters/minute, PIP 25, I/E ratio: 1/2.5.Patient would like to get
--- NOTE | 2023-12-28 18:14 | PCRCNOTE ---
Called to instruct Pt. how to put air in and take air out of his trach cuff with the syringe. Pt demonstrated back. Pt. instructed to have air in his cuff when on his home unit and to deflate the cuff when off the unit while using his speaking valve or trach collar. Pt states understands he only needs the cuff inflated when on his home unit.
--- NOTE | 2023-12-28 18:49 | PM.IMPN ---
Progress Note: A&P Assessment and Plan (1) Acute on chronic respiratory failure with hypoxia and hypercapnia: Code(s): J96.21 - Acute and chronic respiratory failure with hypoxia; J96.22 - Acute and chronic respiratory failure with hypercapnia Status: Acute Assessment and Plan: Patient has chronic respiratory failure secondary to tracheal stenosis status was tracheostomy. He is on 3-5 L of oxygen at home now presented with slightly worsened hypoxia and ABG showed worsening hypercarbia Trach changed to cuffed 6 Shiley Current ventilator settings reviewed ABG reviewed Chest x-ray done was not concerning for pneumonia and patient is afebrile with normal procalcitonin level all pointing against pneumonia. Downgraded from ICU to floor Antibiotic discontinued Patient needs a home ventilator to use during this hospital stay Measure oxyhemoglobin saturation at night on his home ventilator Patient requesting concentrator with a high oxygen flow Placement of cuffless trach with his thoracic surgeon at [facility] CT scan of the neck and chest showed IMPRESSION: 1. Severe tracheal stenosis. 2. Mild multifocal pneumonia. 3. Complete collapse of left lung lower lobe. 4. 12 mm right middle lobe pulmonary nodule, which may be infection or malignancy. Noncontrast low-dose chest CT is recommended in 3 months. Left lower lobe collapse appears atelectasis Will continue course of antibiotics Peep was increased to help with atelectasis Consult pulmonary (2) Mucus plug in respiratory tract: Code(s): T17.998A - Other foreign object in respiratory tract, part unspecified causing other injury, initial encounter Status: Acute Assessment and Plan: Status post suctioning by EMS. No other issues since then. Minimal secretions now. (3) Chronic obstructive pulmonary disease: Code(s): J44.9 - Chronic obstructive pulmonary disease, unspecified Status: Acute Assessment and Plan: Not in exacerbation. Bronchodilators ordered. (4) Stenosis of trachea: Code(s): J39.8 - Other specified diseases of upper respiratory tract Status: Acute Assessment and Plan: Patient has chronic tracheostomy and normally has a cuffed size 6 trach. Trach was switched to cuffed 6 Shiley in the ER. (5) Confusion: Code(s): R41.0 - Disorientation, unspecified Status: Acute Assessment and Plan: Patient has had episodes of confusion at home which has been associated with hypoxia as per reports from outpatient visit. Patient also was found to be hypercarbic and with respiratory acidosis. Negative head CT for any acute abnormality Ventilation to be adjusted as above Normal ammonia Improved and patient now is off of sedation (6) Dysphagia: Code(s): R13.10 - Dysphagia, unspecified Status: Acute Plan Acute on chronic respiratory failure with hypercapnia, Pneumonia Subjective Date/time seen: 12/28/23 18:49 Interval history: Nurse called around 6:50 p.m. the patient has difficulty of breathing. During the evaluation patient was anxious. Patient is saturating [id number] %. patient mucus has been cleared. added Mucomyst q.6 hours. Patient will stay tonight to monitor any further decompensation. Patient was given 1 mg of Ativan for his anxiety. Currently we are holding of the discharge. Objective Data Vital Signs Vital Signs: Vital Signs - 24 hr 12/27/23 19:54 12/27/23 20:29 12/27/23 20:29 Temperature 97.6 F Pulse Rate 74 83 83 Respiratory Rate 22 H 18 Blood Pressure 143/66 H Pulse Oximetry 96 99 Oxygen Delivery High Flow Therapy with Tr Oxygen Flow Rate 25 Fraction of Inspired Oxygen 35 12/27/23 20:38 12/27/23 20:58 12/27/23 20:00 Temperature Pulse Rate 98 93 74 Respiratory Rate 18 Blood Pressure Pulse Oximetry Oxygen Delivery Oxygen Flow Rate Fraction of Inspired Oxygen 12/27/23 20:00 12/27/23 22:00 12/15
[2023-12-28] MEDS: LORazepam (*CRX) 1 MG TABLET PO (18:56)
[2023-12-28 20:13] LABS: Triglycerides 273 mg/dL (<150)
[2023-12-28] MEDS: ACETYLCYSTEINE 20% INHAL SOLN 800 MG/4 ML VIAL 200 MG INHALATION (20:49)
[2023-12-29] VITALS (16 sets, daily range): BP systolic 124–150; BP diastolic 65–85; PULSE 56–97; RESP 12–20; TEMP 36.6–37.2; O2SAT 95–100
[2023-12-29 05:57] LABS: Hematocrit 26.8 % (42.0-52.0); Hemoglobin 8.2 g/dL (14.0-18.0); Mean Corpuscular HGB Conc 30.6 g/dl (32-36); Mean Corpuscular Hemoglobin 31.7 pg (26-34); Mean Corpuscular Volume 103.5 fl (80-100); Mean Platelet Volume 11.1 fl (7.4-10.4); Platelet Count Result 169 k/mm3 (150-375); Red Blood Count 2.59 M/mm3 (4.6-6.20); Red Cell Distribution Width 14.3 % (11.5-14.5); White Blood Count 5.4 K/mm3 (4.5-10.0)
[2023-12-29 06:16] LABS: Alanine Aminotransferase 25 U/L (6-50); Albumin Level 3.5 g/dL (3.5-5.1); Alkaline Phosphatase 36 U/L (38-126); Anion Gap 4 mmol/L (4-12); Aspartate Amino Transferase 21 U/L (17-59); Bilirubin,Total 0.4 mg/dL (0.2-1.3); Blood Urea Nitrogen 21 mg/dL (9-20); Calcium 8.3 mg/dL (8.4-10.2); Carbon Dioxide 32 mmol/L (22-30); Chloride 103 mmol/L (98-107); Estimated CRCL calculation 216 ml/min; Estimated Glomerular Filt Rate > 60; Glucose 98 mg/dL (65-110); Potassium 4.4 mmol/L (3.4-5.0); Sodium 139 mmol/L (137-145)
[2023-12-29] MEDS: ACETYLCYSTEINE 20% INHAL SOLN 800 MG/4 ML VIAL 200 MG INHALATION ×2 (07:04→13:10)
[2023-12-29] MEDS: IPRATROPIUM 0.5 MG/ALBUTEROL SULFATE 2.5 MG AMPUL.NEB 3 ML INHALATION ×2 (07:04→13:10)
[2023-12-29] MEDS: PANTOPRAZOLE 40 MG TABLET PO (08:59)
[2023-12-29] MEDS: METOPROLOL TARTRATE 25 MG TABLET PO (08:59)
[2023-12-29] MEDS: AMOXICILLIN/CLAVULANATE K 875-125 MG TAB 1 TABLET PO (08:59)
[2023-12-29] MEDS: DIVALPROEX SODIUM DR 250 MG TABEC PO ×2 (09:00→14:12)
[2023-12-29] MEDS: busPIRone HCL 10 MG TABLET PO ×2 (09:00→14:12)
[2023-12-29] MEDS: FOLIC ACID 1 MG TABLET PO (09:00)
[2023-12-29] MEDS: APIXABAN 5 MG TABLET PO (09:00)
[2023-12-29] MEDS: FERROUS SULFATE 325 MG TABLET DR PO (09:00)
--- NOTE | 2023-12-29 09:51 | PM.PNPUL ---
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 Diagnostic studies have shown left lower lobe atelectasis. Reportedly, the patient improved following suctioning of mucus plaque. Notably, the patient has a small-sized tracheostomy tube, size 6. The left lower lobe collapse is most likely related to mucus plugging and retention of secretions. The patient was transferred out of ICU and is still receiving antibiotics. He had no evidence of lower respiratory tract infection as his WBC was not elevated and the chest imaging studies have shown just left lung atelectasis. The patient is using a home ventilator and on the last usage he had the following parameters: EPAP 8, respiratory rate 16, tidal volume 805, air leak 30 liters/minute, PIP 25, I/E ratio: 1/2.5. The patient developed some shortness of breath last night which was probably related to mucus plugging. Shortness of breath cleared after suctioning and treatment with nebulized short-acting bronchodilators and mucolytic agent. The patient did not like the Mucomyst due to its odor. Respiratory status is back at baseline today. Chest x-ray showed discoid atelectasis of the left lower lobe but no significant lung collapse. The patient requested reversal of his cuffed tracheostomy tube to his previous cuffless one. According to the patient, he has been using a cuffless tracheostomy tube for quite some time following a surgery at [facility]. He is planning to consult with his thoracic surgeon about changing the tracheostomy tube back to the previous type. Upon questioning, the patient stated that he will be using the home ventilator at night and keep the tube cuff inflated. He plans to keep up with aggressive pulmonary toilet including frequent suctioning and use of humidified oxygen. The patient usually monitors O2 saturation via oximeter at home. His O2 saturation usually remains pretty high on 3 liters/minute of oxygen. He would like to use a long hose for oxygen so that he can ambulate at home. Plan: It is okay to discharge the patient home today. The patient indicated that he has an appointment with his thoracic surgeon at [facility] within the next 10 days. He will continue with his home ventilator, supplemental oxygen, and other respiratory medications. Will sign off, please call with any questions. (2) Mucus plug in respiratory tract: Code(s): T17.998A - Other foreign object in respiratory tract, part unspecified causing other injury, initial encounter Status: Acute (3) Acute on chronic respiratory failure with hypoxia and hypercapnia: Code(s): J96.21 - Acute and chronic respiratory failure with hypoxia; J96.22 - Acute and chronic respiratory failure with hypercapnia Status: Acute (4) Chronic respiratory failure with hypoxia: Code(s): J96.11 - Chronic respiratory failure with hypoxia Status: Acute (5) Tracheostomy dependent: Code(s): Z93.0 - Tracheostomy status Status: Acute (6) Stenosis of trachea: Code(s): J39.8 - Other specified diseases of upper respiratory tract Status: Acute Subjective Date/time seen: 12/29/23 09:51 Interval history: Patient was about to be discharged home last night when he had episode of shortness of breath. Shortness of breath cleared after suctioning and treatment with nebulized mucolytic agent. Currently he is back at baseline. He has no fever chills hemoptysis. He used own home ventilator last night. He was taught how to inflate his cuffed tracheostomy tube and use the home ventilator by the respiratory therapy services. Review of Systems Review of Systems
--- NOTE | 2023-12-29 12:04 | PM.DS ---
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 He is on 3-5 L of oxygen at home now presented with slightly worsened hypoxia and ABG showed worsening hypercarbia Trach changed to cuffed 6 Shiley Current ventilator settings reviewed ABG reviewed Chest x-ray done was not concerning for pneumonia and patient is afebrile with normal procalcitonin level all pointing against pneumonia. Downgraded from ICU to floor Antibiotic discontinued Patient needs a home ventilator to use during this hospital stay Measure oxyhemoglobin saturation at night on his home ventilator Patient requesting concentrator with a high oxygen flow Placement of cuffless trach with his thoracic surgeon at [facility] CT scan of the neck and chest showed IMPRESSION: 1. Severe tracheal stenosis. 2. Mild multifocal pneumonia. 3. Complete collapse of left lung lower lobe. 4. 12 mm right middle lobe pulmonary nodule, which may be infection or malignancy. Noncontrast low-dose chest CT is recommended in 3 months. Left lower lobe collapse appears atelectasis Will continue course of antibiotics Peep was increased to help with atelectasis Consult pulmonary (2) Mucus plug in respiratory tract: Code(s): T17.998A - Other foreign object in respiratory tract, part unspecified causing other injury, initial encounter Status: Acute Assessment and Plan: Status post suctioning by EMS. No other issues since then. Minimal secretions now. (3) Chronic obstructive pulmonary disease: Code(s): J44.9 - Chronic obstructive pulmonary disease, unspecified Status: Acute Assessment and Plan: Not in exacerbation. Bronchodilators ordered. (4) Stenosis of trachea: Code(s): J39.8 - Other specified diseases of upper respiratory tract Status: Acute Assessment and Plan: Patient has chronic tracheostomy and normally has a cuffed size 6 trach. Trach was switched to cuffed 6 Shiley in the ER. (5) Confusion: Code(s): R41.0 - Disorientation, unspecified Status: Acute Assessment and Plan: Patient has had episodes of confusion at home which has been associated with hypoxia as per reports from outpatient visit. Patient also was found to be hypercarbic and with respiratory acidosis. 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 Diagnostic studies have shown left lower lobe atelectasis. Reportedly, the patient improved following suctioning of mucus plaque. Notably, the patient has a small-sized tracheostomy tube, size 6. The left lower lobe collapse is most likely related to mucus plugging and retention of secretions. The patient was transferred out of ICU and still receiving antibiotics. He had no evidence of lower respiratory tract infection as his WBC was not elevated and the chest imaging studies have shown just left lung atelectasis. patient is using home ventilator and on the last usage he had the following parameters: EPAP 8 respiratory rate 16 tidal volum
== END 2023-12-29 18:45 | disposition home or self-care (01) | DRG 208 ==
LOC: ANHED 16:31 → ANHICU 19:25 → ANHIMU 12-27 13:56
PROVIDERS: Internal Medicine; Physician Assistant; Admitting Provider General Practice; Emergency Provider Emergency Medicine; PCP Internal Medicine; Visit Provider General Practice
DX: J95.03 Malfunction of tracheostomy stoma (principal); J96.21 Acute and chronic respiratory failure with hypoxia; J96.22 Acute and chronic respiratory failure with hypercapnia; J44.0 Chronic obstructive pulmonary disease with (acute) lower respiratory infection; Z68.41 Body mass index [BMI] 40.0-44.9, adult; J98.11 Atelectasis; T17.990A Other foreign object in respiratory tract, part unspecified in causing asphyxiation, initial encounter; R13.10 Dysphagia, unspecified; D64.9 Anemia, unspecified; F41.8 Other specified anxiety disorders; E66.01 Morbid (severe) obesity due to excess calories; F41.9 Anxiety disorder, unspecified; H54.8 Legal blindness, as defined in USA; R41.0 Disorientation, unspecified; I10 Essential (primary) hypertension; Z20.822 Contact with and (suspected) exposure to COVID-19; Z79.01 Long term (current) use of anticoagulants; Z86.718 Personal history of other venous thrombosis and embolism; Z87.891 Personal history of nicotine dependence; Z99.81 Dependence on supplemental oxygen
CPT/HCPCS: 36415; 36600; 70450; 70490; 71045; 71250; 80048; 80053; 81001; 82140; 82375; 82607; 82728; 82746; 82805; 82948; 83050; 83605; 83735; 83880; 84145; 84443; 84478; 84484; 85025; 85027; 85055; 86140; 87040; 87070; 87205; 87637; 87641; 92610; 94002; 94003; 94640; 94762; 96365; 96366; 96367; 96375; 99285; A9270; G0378; J0456; J0696; J2250; J2704; J2919; J3010; J3480; J7030; J7040; J7120